=== PATIENT | male | born 1950 | race Caucasian/White ===

== ENCOUNTER 2016-11-01 13:11 | Emergency (ER) | payer MEDICARE ==
--- NOTE | 2016-11-01 14:51 | UC ---
Skin Complaint HPI - HPI Summary HPI Summary: PT HAS HAD A SORE SPOT LEFT MID BACK FOR ABOUT 2 WEEKS. FEELS SUPERFICIAL "LIKE ITS ON THE SKIN". WONDERING IF IT'S A "SPIDER BITE". 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 NO FEVER. - History of Current Complaint Chief Complaint: UCSkin Time Seen by Provider: 11/01/16 14:44 Stated Complaint: SPIDER BITE-RED/SWOLLEN Hx Obtained From: Patient Onset/Duration: Gradual Onset, Lasting Weeks, Still Present Timing: Constant Onset Severity: Moderate Current Severity: Moderate Pain Intensity: 8 Pain Scale Used: 0-10 Numeric Location: Discrete - LEFT MID BACK Character: Pain Aggravating: Touch Alleviating: Nothing Associated Signs & Symptoms: Positive: Negative - Allergy/Home Medications Allergies/Adverse Reactions: Allergies Allergy/AdvReac Type Severity Reaction Status Date / Time Sulfa Antibiotics Allergy Unknown Unknown Unverified 11/19/12 13:51 Reaction Details Home Medications: Home Medications Melatonin 11/01/16 [History] Review of Systems Constitutional: Negative Skin: Other - TENDER SPOT LEFT BACK Respiratory: Negative Cardiovascular: Negative Gastrointestinal: Negative All Other Systems Reviewed And Are Negative: Yes PMH/Surg Hx/FS Hx/Imm Hx Previously Healthy: Yes Endocrine History Of: Denies: Diabetes, Thyroid Disease Cardiovascular History Of: Denies: Cardiac Disorders, Hypertension Respiratory History Of: Denies: COPD, Asthma GI/ History Of: Denies: Ulcer - Surgical History Surgical History: Yes Surgery Procedure, Year, and Place: Esophageal removed (2004) Right kidney tumor removed. (2007) - Family History Known Family History: Positive: Hypertension - Social History Alcohol Use: Occasionally Substance Use Type: None Smoking Status (MU): Never Smoked Tobacco Physical Exam Triage Information Reviewed: Yes Appearance: Well-Appearing, No Pain Distress, Well-Nourished Vital Signs: Initial Vital Signs Temp 98.8 F 11/01/16 14:21 Pulse 81 11/01/16 14:21 Resp 18 11/01/16 14:21 BP 163/88 11/01/16 14:21 Pulse Ox 99 11/01/16 14:21 Vital Signs Reviewed: Yes Eyes: Positive: Conjunctiva Clear ENT: Positive: Hearing grossly normal Neck: Positive: Supple Respiratory: Positive: No respiratory distress, No accessory muscle use Cardiovascular: Positive: Pulses Normal Abdomen Description: Positive: Soft Musculoskeletal: Positive: No Edema Neurological: Positive: Alert Skin: Positive: Other - MULTIPLE EPIDERMAL INCLUSION CYSTS AND COMEDOMES SCATTERED OVER BACK. NO SURROUNDING ERYTHEMA OR DRAINAGE. COMEDOME LEFT MID BACK AT SITE OF DISCOMFORT MILDLY TENDER Course/Dx - Course Course Of Treatment: NO SIGN OF INFECTION. CHEESY MATERIAL EXPRESSED FROM SEVERAL PLUGGED GLANDS. PT ADVISED TO GO HOME AND SHOWER AND KEEP CLEAN AND DRY ABLE. FOLLOW-UP IF PAIN PERSISTS. - Diagnoses Provider Diagnoses: EPIDERMAL INCLUSION CYSTS Discharge - Discharge Plan Condition: Stable Disposition: HOME Patient Education Materials: Epidermal Inclusion Cysts (ED) Referrals: Adrian Domingo MD [Primary Care Provider] - 1 Week (YOUR BP IS ELEVATED TODAY. FOLLOW-UP WITH DR. DOMINGO IN THE NEXT WEEK OR SO TO RE-EVALUATE.) Additional Instructions: NO SIGN OF INFECTION ON EXAM. KEEP CLEAN AND DRY ABLE. KEEP YOUR DERM FOLLOW- UP PLANNED.
[2016-11-01 15:27] VITALS: BP 160/99
== END 2016-11-01 15:25 | disposition home or self-care (01) ==
LOC: UCEAST 13:11
DX: L72.8 Other follicular cysts of the skin and subcutaneous tissue (principal); Z88.2 Allergy status to sulfonamides
CPT/HCPCS: 99211; G0463

== ENCOUNTER 2017-03-26 10:16 | Day surgery (SDC) | payer MEDICARE ==
[~2017-03-26 10:16] MED LIST: Buffered Lidocaine 0.9% SYRIN* 5 ML/SYR SYRINGE INTRADERM ONE; Midazolam* 1 MG/ML 2 ML VIAL (2 MG) ONE; fentaNYL* 50 MCG/ML 2 ML VIAL (100 MCG VIAL) ONE
[2017-03-26] MEDS ORDERED: Buffered Lidocaine 0.9% SYRIN* 5 ML/SYR SYRINGE ONE (10:27)
[2017-03-26] MEDS ORDERED: Methylene Blue 0.5 %* 50 MG/10 ML AMP IV ONE (11:39)
[2017-03-26] MEDS ORDERED: Lidocaine 1% MPF wEPI 200,000* 30 ML SDV ONE (11:53)
[2017-03-26] MEDS ORDERED: Dexamethasone IV* 4 MG/ML 1 ML (4 MG) ONE (11:59)
[2017-03-26] MEDS ORDERED: Propofol* 10 MG/ML 20 ML BTL IV PUSH ONE (11:59)
[2017-03-26] MEDS ORDERED: Ondansetron INJ* 2 MG/ML VIAL ONE (11:59)
[2017-03-26] MEDS ORDERED: Lidocaine 2% PF * 5 ML VIAL ONE (11:59)
[2017-03-26] MEDS ORDERED: fentaNYL* 50 MCG/ML 2 ML VIAL (100 MCG VIAL) ONE (12:00)
[2017-03-26] MEDS ORDERED: oxyCODONE/Acetamin 5/325 MG* TAB PO PRN (12:18)
[2017-03-26] MEDS ORDERED: Acetaminophen TAB* 325 MG ONE (13:16)
[2017-03-26] MEDS ORDERED: Bacitracin OINTMENT* 1 TUBE ONE (13:28)
[2017-03-26 13:42] VITALS: BP 158/94
--- NOTE | 2017-03-26 21:58 | OP ---
DATE OF OPERATION: 03/26/17 - [facility] DATE OF : 50 SURGEON: Solo Willis MD ANESTHESIOLOGIST: Sobeida Yun MD ANESTHESIA: General PRE-OP DIAGNOSIS: Lymphoma, skin post neoplasm uncertain. POST-OP DIAGNOSIS: Lymphoma, skin post neoplasm uncertain. OPERATION PERFORMED: Excision of forehead skin lesion with rotational advancement flap. BRIEF HISTORY: This 66-year-old gentleman is noticing a slowly enlarging forehead mass. Previous biopsies were highly suspicious for lymphoma. DESCRIPTION PROCEDURE: The patient was taken to the operating room, general anesthesia was given, the patient intubated with LMA. Margins of the resection were identified and subsequently a VY advancement flap on both sides was fashioned. Subsequently, advancement flaps laterally as well in the crease of the forehead, total about 15 sq. cm. Then, elliptical excision was carried out and subsequently the VY advancement was carried out inferiorly and superiorly and then subsequently laterally. Once this was done, the wound was closed with multiple sutures including Vicryl and Prolene. Once the defect was closed, the patient was awakened and sent to recovery room in stable condition. The instruments and sponge counts were correct. Blood loss was minimal. [id number]/[facility] #: [id number] [facility]
== END 2017-03-26 13:45 | disposition home or self-care (01) ==
LOC: OR 10:16
PROVIDERS: ATTEND Otolaryngology
DX: D23.39 Other benign neoplasm of skin of other parts of face (principal); Z88.2 Allergy status to sulfonamides; Z79.01 Long term (current) use of anticoagulants; M95.0 Acquired deformity of nose; Z86.711 Personal history of pulmonary embolism; Z85.01 Personal history of malignant neoplasm of esophagus
CPT/HCPCS: 88184; 88185; 88188; 88305; 88341; 88342; A9270-GY; J1100; J2001; J2250; J2405; J2704; J3010

== ENCOUNTER 2017-12-09 10:28 | Emergency (ER) | payer MEDICARE ==
[2017-12-09 10:56] VITALS: BP 121/76
--- NOTE | 2017-12-09 10:59 | UC ---
Skin Complaint HPI - HPI Summary HPI Summary: 67 yo male presents with abrasion to left foot. He tells me that last night he stepped on a patio chair that had rails - slipped and some skin scraped off the bottom of his foot. He is worried that something is broken as it is painful to walk since it happened. Denies numbness or tingling. - History of Current Complaint Chief Complaint: UCLowerExtremity Time Seen by Provider: 12/09/17 10:58 Stated Complaint: FOOT INJURY Hx Obtained From: Patient Onset/Duration: Sudden Onset Skin Exposure Onset/Duration: Days Ago Timing: Constant Onset Severity: Moderate Current Severity: Moderate Pain Intensity: 5 Pain Scale Used: 0-10 Numeric - Allergy/Home Medications Allergies/Adverse Reactions: Allergies Allergy/AdvReac Type Severity Reaction Status Date / Time Sulfa (Sulfonamide Allergy Swelling Verified 12/09/17 10:47 Antibiotics) Of Face,Lips,& Throat Home Medications: Home Medications Rivaroxaban TAB(*) [Xarelto 15 mg(*)] 15 mg PO DAILY 12/09/17 [History Confirmed 12/09/17] Review of Systems Constitutional: Negative Skin: Other - Abrasion left plantar foot Respiratory: Negative Cardiovascular: Negative Neurovascular: Negative Musculoskeletal: Other: - Left foot pain Neurological: Negative Psychological: Negative All Other Systems Reviewed And Are Negative: Yes PMH/Surg Hx/FS Hx/Imm Hx Cardiovascular History: Cardiac Disease - Surgical History Surgical History: Yes Surgery Procedure, Year, and Place: Esophageal removed (2004) Right kidney tumor removed. (2007) - Family History Known Family History: Positive: Hypertension - Social History Occupation: Retired Lives: With Family Alcohol Use: Daily Alcohol Amount: 2-3 beers/day Substance Use Type: None Substance Use Comment - Amount & Last Used: 3 months ago marijuana Smoking Status (MU): Never Smoked Tobacco Have You Smoked in the Last Year: No Physical Exam - Summary Physical Exam Summary: GENERAL: NAD. WDWN. No pain distress. SKIN: Plantar aspect of left foot: 5.0cm area of abrasion at the arch with some sloughing superficial skin. Mildly TTP. No drainage, bleeding, or discharge. NECK: Supple. Nontender. No lymphadenopathy. CHEST: No accessory muscle use. Breathing comfortably and in no distress. CV: RRR. Without m/r/g. Pulses intact PT and DP. Brisk cap refill. MSK: Left foot: FROM and Strength 5/5. No edema or obvious bony deformities. NEURO: Alert. Sensations intact and symmetric B/L LEs PSYCH: Age appropriate behavior. Triage Information Reviewed: Yes Vital Signs: Initial Vital Signs Temp 98.2 F 12/09/17 10:49 Pulse 71 12/09/17 10:49 Resp 16 12/09/17 10:49 BP 121/76 12/09/17 10:49 Pulse Ox 99 12/09/17 10:49 Course/Dx - Course Course Of Treatment: XR: IMPRESSION: Degenerative changes of the first metatarsophalangeal joint without fracture. Left foot contusion and abrasion. Dressed with gauze and advised to change dressing daily. Ambulate as tolerated. Apply ice. Tylenol for pain prn. - Diagnoses Provider Diagnoses: Left foot contusion. Left foot abrasion Discharge - Sign-Out/Discharge Documenting (check all that apply): Discharge/Admit/Transfer - Discharge Plan Condition: Stable Disposition: HOME Patient Education Materials: Abrasion (ED) Referrals: Adrian Carbajal MD [Primary Care Provider] - Additional Instructions: If you develop a fever, shortness of breath, chest pain, new or worsening symptoms - please call your PCP or go to the ED. - Billing Disposition and Condition Condition: STABLE Disposition: HOME
--- NOTE | 2017-12-09 11:38 | RAD ---
Indication: Left foot pain. 3 views of left foot demonstrates degenerative changes of the first metatarsal phalangeal joint. No fracture is noted. IMPRESSION: Degenerative changes of the first metatarsophalangeal joint without fracture.
== END 2017-12-09 12:05 | disposition home or self-care (01) ==
LOC: UCEAST 10:28
DX: S90.32XA Contusion of left foot, initial encounter (principal); S90.812A Abrasion, left foot, initial encounter; W22.8XXA Striking against or struck by other objects, initial encounter; Y93.9 Activity, unspecified; Y92.9 Unspecified place or not applicable; I51.9 Heart disease, unspecified; Z88.2 Allergy status to sulfonamides
CPT/HCPCS: 99211; G0463

== ENCOUNTER 2018-10-17 12:13 | Inpatient (IN) | payer MEDICARE ==
[2018-10-17] MEDS ORDERED: NS 0.9% 1000 ML** 1,000 ML IV ONE (12:17)
[2018-10-17 12:50] LABS: ABS Basophils 0.1 10^3/ul (0-0.2); ABS Eosinophils 0 10^3/ul (0-0.6); ABS Lymphocytes 1.2 10^3/ul (1.0-4.8); ABS Monocytes 0.8 10^3/ul (0-0.8); ABS Neutrophils 4.2 10^3/ul (1.5-7.7); ABS Nucleated RBC 0 10^3/ul; Eosinophil % 0.5 %; Hematocrit 43 % (36-46); Hemoglobin 14.1 g/dL (14.0-18.0); Lymphocyte % 18.8 %; Mean Corpuscular HGB Conc 33 g/dL (31-36); Mean Corpuscular Hemoglobin 27 pg (27-31); Mean Corpuscular Volume 84 fL (80-94); Mean Platelet Volume 6.8 fL (7.4-10.4); Nucleated Red Blood Cells % 0.1; Platelet Count 362 10^3/uL (150-450); Red Blood Count 5.16 10^6 /uL (4.18-5.48); Red Cell Distribution Width 17 % (10.5-15); White Blood Count 6.4 10^3/uL (3.5-10.8)
[2018-10-17 12:52] LABS: Activated Partial Thrombo Time 27.2 seconds (26.0-36.3); INR 0.89 (0.77-1.02)
[2018-10-17 13:00] LABS: Albumin 3.9 g/dL (3.2-5.2); Albumin/Globulin Ratio 1.1 (1-3); Calcium 9.2 mg/dL (8.6-10.3); EGFR African American 101.5 (>60); EGFR Non-African American 83.9 (>60); Globulin 3.4 g/dL (2-4); HDL Cholesterol 91.6 mg/dL; Potassium 3.9 mmol/L (3.5-5.0); Total Bilirubin 0.8 mg/dL (0.2-1.0); Total Protein 7.3 g/dL (6.4-8.9)
[2018-10-17 13:02] LABS: Troponin I 0.02 ng/mL (<0.04)
[2018-10-17 13:27] LABS: Urine Appearance Clear; Urine Bacteria Absent (Absent); Urine Bilirubin Negative (Negative); Urine Blood 1+ (Negative); Urine Color Straw; Urine Glucose Negative (Negative); Urine Ketones Negative (Negative); Urine Nitrite Negative (Negative); Urine Protein Negative (Negative); Urine Red Blood Cell Absent (Absent); Urine Specific Gravity 1.006 (1.010-1.030); Urine Urobilinogen Negative (Negative); Urine White Blood Cell Trace(0-5/hpf) (Absent)
[2018-10-17] MEDS ORDERED: Iodixanol* (CONTRAST) 320 MG/ML 100 ML SDV IV ONE (13:46)
--- NOTE | 2018-10-17 14:05 | ED ---
Neurological HPI - HPI Summary HPI Summary: The patient is a 68 year old male who is presenting to the [facility] via ambulance with a chief complaint of slurred speech. The patient was reportedly at baseline earlier this morning and states that throughout the day has had 4 episodes of slurred speech. One reported incident of slurred speech was while he was in the car with his and another episode of slurred speech was while the patient was talking to the EMS. The slurred speech episodes have been intermittent and are currently resolved. The patient also states during one episode of slurred speech he became very weak in his right arm and was unable to move it. The pain is rated as 0/10 in severity. Symptoms aggravated by nothing. Symptoms alleviated by nothing. - History of Current Complaint Chief Complaint: EDNeurologicalDeficit Stated Complaint: STROKE LIKE SYMPTOMS PER EMS Time Seen by Provider: 10/17/18 12:16 Hx Obtained From: Patient, EMS Onset/Duration: Sudden Onset Pain Intensity: 0 Pain Scale Used: 0-10 Numeric Associated Signs and Symptoms: Positive: Weakness - right arm, Impaired Speech - Allergy/Home Medications Allergies/Adverse Reactions: Allergies Allergy/AdvReac Type Severity Reaction Status Date / Time Sulfa (Sulfonamide Allergy Swelling Verified 10/17/18 12:49 Antibiotics) Of Face,Lips,& Throat PMH/Surg Hx/FS Hx/Imm Hx Endocrine/Hematology History: Denies: Hx Diabetes, Hx Thyroid Disease Cardiovascular History: Reports: Other 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 kidney Hx Chemotherapy: Yes - Surgical History Surgery Procedure, Year, and Place: Esophageal removed (2004) Right kidney tumor removed, partial nechrectomy (2007), excision of skin lesion (2016) Hx Anesthesia Reactions: No Infectious Disease History: No Infectious Disease History: Denies: Hx Hepatitis, Hx Human Immunodeficiency Virus (HIV), Traveled Outside the [place] in Last 30 Days - Family History Known Family History: Positive: Hypertension, Other - Esophageal Cancer - Social History Lives: With Family Alcohol Use: Occasionally Alcohol Amount: 2-3 beers/day Substance Use Type: Reports: Marijuana Substance Use Comment - Amount & Last Used: 3 months ago marijuana Smoking Status (MU): Never Smoked Tobacco Have You Smoked in the Last Year: No Review of Systems Constitutional: Negative Eyes: Negative ENT: Negative Cardiovascular: Negative Respiratory: Negative Gastrointestinal: Negative Genitourinary: Negative Musculoskeletal: Negative Skin: Negative Positive: Weakness - Right Arm, Slurred Speech Psychological: Normal All Other Systems Reviewed And Are Negative: Yes Physical Exam - Summary Physical Exam Summary: Appearance: The patient is well-nourished in no acute distress and in no acute pain. Skin: The skin is warm and dry and skin color reflects adequate perfusion. HEENT: The head is normocephalic and atraumatic. The pupils are equal and reactive. The conjunctivae are clear and without drainage. Nares are patent and without drainage. Mouth reveals moist mucous membranes and the throat is without erythema and exudate. The external ears are intact. The ear canals are patent and without drainage. The tympanic membranes are intact. Neck: The neck is supple with full range of motion and non-tender. There are no carotid bruits. There is no neck vein distension. Respiratory: Chest is non-tender. Lungs are clear to auscultation and breath sounds are symmetrical and equal. Cardiovascular: Heart is regular rate and rhythm. There is no murmur or rub auscultated. There is no peripheral edema and pulses are symmetrical and equal. Abdomen: The abdomen is soft and non-tender. There are normal bowel sounds heard in all four quadrants and there is no organomegaly palpated. Musculoskeletal: There is no back tenderness noted. Extremities are non-tender with full range of motion. There is good capillary refill. There is no peripheral edema or calf tenderness elicited. Neurological: Patient is alert and oriented to person, place and time. The patient has symmetrical motor strength in all four extremities. Cranial nerves are grossly intact. Deep tendon reflexes are symmetrical and equal in all four extremities. Psychiatric: The patient has an appropriate affect and does not exhibit any anxiety or depression. NIH: CT stroke scale was 1 for slurred speech 1 minor for minor right lower facial weakness Vital Signs On Initial Exam: Initial Vitals Temp Pulse Resp BP Pulse Ox 98.2 F 79 26 185/106 99 10/17/18 12:15 10/17/18 12:15 10/17/18 12:15 10/17/18 12:15 10/17/18 12:15 Diagnostics - Vital Signs Vital Signs Temp Pulse Resp BP Pulse Ox 10/17/18 12:15 98.2 F 79 26 185/106 99 - Laboratory Lab Results: Lab Results 10/17/18 10/17/18 10/17/18 Range/Units 12:17 12:35 12:35 WBC 6.4 (3.5-10.8) 10^3/uL RBC 5.16 (4.18-5.48) 10^6 /uL Hgb 14.1 (14.0-18.0) g/dL Hct 43 (36-46) % MCV 84 (80-94) fL MCH 27 (27-31) pg MCHC 33 (31-36) g/dL RDW 17 H (10.5-15) % Plt Count 362 (150-450) 10^3/uL MPV 6.8 L (7.4-10.4) fL Neut % (Auto) 66.5 % Lymph % (Auto) 18.8 % Wheeler % (Auto) 13.2 % Eos % (Auto) 0.5 % Baso % (Auto) 1.0 % Absolute Neuts (auto) 4.2 (1.5-7.7) 10^3/ul Absolute Lymphs (auto) 1.2 (1.0-4.8) 10^3/ul Absolute Monos (auto) 0.8 (0-0.8) 10^3/ul Absolute Eos (auto) 0 (0-0.6) 10^3/ul Absolute Basos (auto) 0.1 (0-0.2) 10^3/ul Absolute Nucleated RBC 0 10^3/ul Nucleated RBC % 0.1 INR (Anticoag Therapy) 0.89 (0.77-1.02) APTT 27.2 (26.0-36.3) seconds Sodium (135-145) mmol/L Potassium (3.5-5.0) mmol/L Chloride (101-111) mmol/L Carbon Dioxide (22-32) mmol/L Anion Gap (2-11) mmol/L BUN (6-24) mg/dL Creatinine (0.67-1.17) mg/dL Est GFR ( Amer) (>60) Est GFR (Non-Af Amer) (>60) BUN/Creatinine Ratio (8-20) Glucose (70-100) mg/dL Lactic Acid (0.5-2.0) mmol/L Calcium (8.6-10.3) mg/dL Total Bilirubin (0.2-1.0) mg/dL AST (13-39) U/L ALT (7-52) U/L Alkaline Phosphatase (34-104) U/L Troponin I (<0.04) ng/mL Total Protein (6.4-8.9) g/dL Albumin (3.2-5.2) g/dL Globulin (2-4) g/dL Albumin/Globulin Ratio (1-3) Triglycerides mg/dL Cholesterol mg/dL LDL Cholesterol mg/dL HDL Cholesterol mg/dL Urine Color Straw Urine Appearance Clear Urine pH 5.0 (5-9) Ur Specific [place] 1.006 L (1.010-1.030) Urine Protein Negative (Negative) Urine Ketones Negative (Negative) Urine Blood 1+ A (Negative) Urine Nitrate Negative (Negative) Urine Bilirubin Negative (Negative) Urine Urobilinogen Negative (Negative) Ur Leukocyte Esterase Negative (Negative) Urine WBC (Auto) Trace(0-5/hpf) (Absent) Urine RBC (Auto) Absent (Absent) Urine Bacteria Absent (Absent) Urine Glucose Negative (Negative) Blood Type Antibody Screen 10/17/18 10/17/18 10/17/18 Range/Units 12:35 12:35 12:35 WBC (3.5-10.8) 10^3/uL RBC (4.18-5.48) 10^6 /uL Hgb (14.0-18.0) g/dL Hct (36-46) % MCV (80-94) fL MCH (27-31) pg MCHC (31-36) g/dL RDW (10.5-15) % Plt Count (150-450) 10^3/uL MPV (7.4-10.4) fL Neut % (Auto) % Lymph % (Auto) % Wheeler % (Auto) % Eos % (Auto) % Baso % (Auto) % Absolute Neuts (auto) (1.5-7.7) 10^3/ul Absolute Lymphs (auto) (1.0-4.8) 10^3/ul Absolute Monos (auto) (0-0.8) 10^3/ul Absolute Eos (auto) (0-0.6) 10^3/ul Absolute Basos (auto) (0-0.2) 10^3/ul Absolute Nucleated RBC 10^3/ul Nucleated RBC % INR (Anticoag Therapy) (0.77-1.02) APTT (26.0-36.3) seconds Sodium 132 L (135-145) mmol/L Potassium 3.9 (3.5-5.0) mmol/L Chloride 100 L (101-111) mmol/L Carbon Dioxide 23 (22-32) mmol/L Anion Gap 9 (2-11) mmol/L BUN 9 (6-24) mg/dL Creatinine 0.90 (0.67-1.17) mg/dL Est GFR ( Amer) 101.5 (>60) Est GFR (Non-Af Amer) 83.9 (>60) BUN/Creatinine Ratio 10.0 (8-20) Glucose 107 H (70-100) mg/dL Lactic Acid 2.2 H* (0.5-2.0) mmol/L Calcium 9.2 (8.6-10.3) mg/dL Total Bilirubin 0.80 (0.2-1.0) mg/dL AST 29 (13-39) U/L ALT 17 (7-52) U/L Alkaline Phosphatase 84 (34-104) U/L Troponin I 0.02 (<0.04) ng/mL Total Protein 7.3 (6.4-8.9) g/dL Albumin 3.9 (3.2-5.2) g/dL Globulin 3.4 (2-4) g/dL Albumin/Globulin Ratio 1.1 (1-3) Triglycerides 126 mg/dL Cholesterol 168 mg/dL LDL Cholesterol 51 mg/dL HDL Cholesterol 91.6 mg/dL Urine Color Urine Appearance Urine pH (5-9) Ur Specific [place] (1.010-1.030) Urine Protein (Negative) Urine Ketones (Negative) Urine Blood (Negative) Urine Nitrate (Negative) Urine Bilirubin (Negative) Urine Urobilinogen (Negative) Ur Leukocyte Esterase (Negative) Urine WBC (Auto) (Absent) Urine RBC (Auto) (Absent) Urine Bacteria (Absent) Urine Glucose (Negative) Blood Type O Positive Antibody Screen Negative Result Diagrams: 10/17/18 12:35 10/17/18 12:35 Lab Statement: Any lab studies that have been ordered have been reviewed, and results considered in the medical decision making process. - Radiology Chest X-ray Radiology Interpretation Completed By: Radiologist Summary of Radiographic Findings: Chest X-Ray reveals as per radiologist #. No evidence for acute intrathoracic disease. ED Physician has reviewed this radiology report. - CT Brain CT CT Interpretation Completed By: Radiologist Summary of CT Findings: Brain CT reveals as per radiologist #. No evidence for intracranial hemorrhage or CT stigmata of ischemic stroke. #. Mild involutional change. #. Paranasal sinus disease with suggestion of acute RIGHT maxillary sinusitis. ED Physician has reviewed this radiology report. HEAD and NECK CTA CT Interpretation Completed By: Radiologist Summary of CT Findings: HEAD and NECK CTA reveals as per radiologist ,. HEAD ANGIOGRAM IMPRESSION: No large vessel intracranial arterial occlusion or. hemodynamically significant stenosis detected. NECK ANGIOGRAM IMPRESSION: Approximate 50% RIGHT and 15% LEFT internal carotid artery. stenosis. ED Physician has reviewed this radiology report. - EKG 1237 Summary of EKG Findings: Right Bundle Branch Block with sinus rhythm at 75 bpm. EKG was taken at 1237. NIH Scale - NIH Scale Level of Consciousness: Alert/Keenly Responsive Ask Patient the Month and His/Her Age: Both Correct Ask Pt to Open/Close Eyes and Senior Scheduler/Release Non-Paretic Hand: Both Correctly Best Gaze (Only Horizontal Eye Movement): Normal Visual Field Testing: No Visual Loss Facial Paresis-Pt to Smile & Close Eyes or Grimace Symmetry: Minor Paralysis - Minor right lower facial weakness Motor Function - Right Arm: No Drift-Holds 10 Seconds Motor Function - Left Arm: No Drift-Holds 10 Seconds Motor Function - Right Leg: No Drift-Holds 10 Seconds Motor Function - Left Leg: No Drift-Holds 10 Seconds Limb Ataxia-Must be out of Proportion to Weakness Present: Absent Sensory (Use Pinprick to Test Arms/Legs/Trunk/Face): Normal Best Language (Describe Picture, Name Items): No Aphasia Dysarthria (Read Several Words): Slurs Some Words Extinction and Inattention: No Abnormality Total Score: 2 Course/Dx - Course Course Of Treatment: Discussed with Neurologist bpm solution architect at [facility]. Patient is currently not a thrombolytic candidate and recommended CTA. Assessment/Plan: Mr. Chambers reports that he was fine when he got up this morning. But he has had 3-4 episodes of slurred speech and possibly facial droop. On the third episode he was unable to move his right arm except by using his left arm. His decided to drive him to the hospital but when his arm became involved stopped at the nearest fire department. He was mostly resolved by the time they got there. Ambulance was called and he redeveloped slurred speech on the way here. Luis Manuel gruber was called prehospital based on the EMS report. On arrival to the department he had some slurred speech and slight right-sided facial droop which she was able to overcome. The rest of his NIH stroke scale was negative. I spoke with neurology in [place]. 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 He is not a candidate for thrombolysis due to the stuttering affect, the minor symptomatology and the fact that he possibly took Xarelto within the last 48 hours. He is not very compliant with the Xarelto. A CTA was performed looking for a larger clot and was negative. The hospitalist service was contacted for admission and Dr. Moraes was consulted. - Diagnoses Provider Diagnoses: CVA (cerebral vascular accident) Discharge - Sign-Out/Discharge Documenting (check all that apply): Patient Departure - ADMITTED TO THE [facility] [place] - Discharge Plan Condition: Stable Disposition: ADMITTED TO [facility] - Billing Disposition and Condition Condition: STABLE Disposition: Admitted to [facility] - Attestation Statements Document Initiated by Scribe: Yes Documenting Scribe: Phillip Levine Provider For Whom Scribe is Documenting (Include Credential): Dr. Buddy Liang Scribe Attestation: Carter, Phillip Levine, scribed for Dr. Buddy Liang on 10/17/18 at 1807. Scribe Documentation Reviewed: Yes Provider Attestation: The documentation as recorded by the Phillip guajardo accurately reflects the service I personally performed and the decisions made by me, Dr. Buddy Liang Status of Scribe Document: Viewed
[2018-10-17] MEDS ORDERED: NS 0.9% 1000 ML** 1,000 ML IV SCH (16:30)
[2018-10-17] MEDS: hydrALAZINE IV* 20 MG/ML VIAL IV SLOW PU PRN ×2 (16:41→19:08)
[2018-10-17] MEDS ORDERED: Aspirin 81 mg CHEW TAB* 81 MG TAB.CHEW PO ONE (17:58)
[2018-10-17] MEDS: Rivaroxaban TAB(*) 15 MG PO SCH ×2 (18:24→20:38)
--- NOTE | 2018-10-17 20:02 | HP ---
ADMITTING HISTORY AND PHYSICAL: DATE OF ADMISSION: 10/17/18 CHIEF COMPLAINT: Slurred speech. HISTORY OF PRESENT ILLNESS: The patient is a 68-year-old gentleman, who mentions that he has a history of esophageal and kidney cancer, status post esophagectomy and tumor resection respectively, who mentions that he is currently in remission and had a history of PE about 10 years ago at around the same time that he was diagnosed with kidney cancer and was placed on Xarelto for PE along with DVT filter. He mentions that he was in his usual state of health and other than this he does not have any documented past medical history , until this morning where throughout the day he has had at least 3 to 4 episodes of intermittent slurring of speech/stuttering, which was also mirrored by intermittent waxing and waning strength of his right side both of the upper and lower extremities. When he got home and told his , his convinced him to go to the ED and hence his subsequent evaluation for admission. In the ED, he was found to be hypotensive and was found to have an elevated lactic acid and hence the patient was given a bolus of 1 L normal saline as well as the patient underwent a head CTA per Dr. Liang's conversation with [facility]. The CTA fortunately did not show any significant internal carotid artery stenosis and there is no large-vessel intracranial arterial occlusion that was found. PAST MEDICAL AND SURGICAL HISTORY: Esophageal cancer, diagnosed 12 years ago, status post esophagectomy; kidney tumor resection 10 years ago at [facility], status post resection. He also narrates that 4 months ago upon evaluation for his right leg comminuted fracture, he was told that he has nodules in his lungs. Six to nine months ago, Dr. Carbajal of note supposedly examined the patient and mentioned that he is in remission. FAMILY HISTORY: Esophageal cancer, his father; mother, lung cancer. SOCIAL HISTORY: He mentions that he has had previous history of alcohol abuse, but has cut down to 1 beer or 1 alcoholic beverage drink per day for the last 4 months. He mentions that he occasionally smokes marijuana. He lives with his . He has 1 child, who is an adult, who lives in [place]. Denies any history of IV drug use. 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 REVIEW OF SYSTEMS: Intermittent stuttering/slurred speech as described above along with intermittent waxing and waning course of right upper and lower extremity strength. Other than this, he denied any other symptoms such as headaches, dizziness, fevers, chills, nausea, vomiting, chest pain, shortness of breath, increased coughing or sputum production, abdominal pain, diarrhea, constipation, pain and/or increased frequency on urination, myalgias or arthralgias, throat pain, or new skin lesions. The rest of the 14-point review of systems is otherwise unremarkable. PHYSICAL EXAMINATION GENERAL APPEARANCE: The patient is awake, oriented x3, not in acute distress. VITAL SIGNS: Reveals the most recent vital signs of record with blood pressure of 145/95, 88 beats per minute heart rate, 26 per minute respiratory rate from 18, 96% saturation on room air. HEENT: Normocephalic, atraumatic. PERRLA. Extraocular muscles intact. Negative for icterus. Moist oral mucosa. Negative throat erythema. NECK: Soft, supple with no cervical lymphadenopathy, no JVD. CHEST: Clear to auscultation bilaterally. Good air entry. No wheezes, rales, or rhonchi. HEART: S1, S2 within normal limits. Regular rate and rhythm. No murmurs, rubs , or gallops. ABDOMEN: Soft, nondistended, nontender. Normoactive bowel sounds x4 quadrants. EXTREMITIES: No cyanosis, clubbing, or edema. NEUROLOGIC: CN II through XII are intact. He does have some stuttering and 4/ 5 muscle strength on the right side. He mentions that this is intermittent. PSYCHIATRIC: No active psychosis, depression, suicidal or homicidal ideation. SKIN: Warm to touch. DIAGNOSTIC STUDIES/LAB DATA: Most recent and pertinent laboratories drawn show CBC with a WBC, H and H, and platelet counts that were normal. BUN and creatinine were found to be normal, sodium of 132, potassium is normal. UA does not show any pyuria with a specific gravity of 1.006. EKG shows right bundle branch block, sinus rhythm with 75 beats per minute heart rate. CTA of the head and neck as discussed, shows 50% right and 50% left internal carotid artery stenosis and it does not show any large-vessel intracranial arterial occlusion or hemodynamically significant stenosis. Chest x-ray was otherwise no acute disease. There are no nodules seen or commented by radiologist as per the patient's concern. ASSESSMENT AND PLAN: The patient is a 68-year-old gentleman with history of esophageal and kidney cancer, now thought to be in remission, with history of pulmonary embolism, on Xarelto, being admitted for intermittent stuttering as well as intermittent right-sided weakness. 1. Intermittent stuttering and right-sided weakness, possible transient ischemic attack versus cerebrovascular accident versus vasospasm. At this time , we will place the patient on Xarelto at full dose including its loading dose given the patient mentions he has not taken Xarelto for at least 2 days and given above symptoms, we will fully anticoagulate. An MRI, 2D echo with bubble study in a.m. We will also check fasting lipid levels in the a.m. I have also consulted Dr. Friedman and we will await any further input from Neurology. 2. Hypertension. We will place the patient on p.r.n. hydralazine for MAP above 100 given the patient's hypertension on presentation; however, it is interesting that the patient did not receive or seemed to have not received any antihypertensives in the ER and has gradually improved and we will continue watchful waiting at this time. We will place the patient on oral metoprolol with appropriate holding orders. 3. Increased lactic acid, likely due to poor perfusion especially given neurologic symptoms as discussed above. We will continue to hydrate the patient with 1 more L of fluids at a slow rate of 75 cc an hour. 4. Question of lung nodules. I do not see an official report for any nodules or masses nor do I see them in the chest x-ray when I looked at it myself. Given he was concerned about this, given he was told that a chest x-ray done prior to his right compound fracture repair of his tibia and fibula, that he had them and we will defer to the patient's PCP. 5. History of carcinoma. We will defer on followup with Dr. Carbajal given no nodules were seen on chest x-ray that the patient was concerned about. 6. DVT prophylaxis: The patient will be placed on full-dose Xarelto as discussed above. 7. Disposition: For PT eval. [id number]/[facility] #: [id number] MTDD
[2018-10-17] MEDS: Metoprolol Tartrate TAB* 25 MG PO SCH (20:38)
[2018-10-17] MEDS ORDERED: Rivaroxaban TAB(*) 15 MG PO SCH (21:00)
--- NOTE | 2018-10-17 23:17 | CONS ---
CC: Dr. 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 Mr. Chambers was at a meeting this morning for in [place], when he got into his car to come home, he realized his right arm and leg did not work. This got better. He got to [employer] and some of his symptoms returned, eventually got better. He got home and his drove him toward the hospital. He started developing some numbness on the right side on the way in and slurred speech and they called an ambulance to take him in. In the emergency room, he has continued to fluctuate in his symptoms. His NIH stroke scale was recorded as 1 in the emergency room. His CT of the brain showed no evidence of hemorrhage. There was a question of right maxillary sinusitis. His CTA of the brain and neck showed no large vessel occlusion. He did have stenosis on the right internal carotid at 50% and left at 15%. He had a chest x-ray that showed no active disease. ER physician consulted [facility], who felt he was not a candidate for tPA and subsequently I was called to consult, at which time we were outside the tPA window. On the phone, I asked the ER physician to keep him as flat as possible to allow for perfusion given fluctuating history that was noted. On my evaluation in the emergency room, he was noted to have an NIH stroke scale of 2 with mild facial palsy and mild changes in speech with dysarthria. Although no drift was noted, there was weakness on examination of individual muscles. PAST MEDICAL AND SURGICAL HISTORY: Includes pulmonary embolism in 2005 around the prabhakar-surgical period of time for esophageal cancer. He was found to have tumor in his right kidney on surveillance for esophageal cancer and had a partial right nephrectomy in 2007. He has a history of skin lesion resection in 2016. He does have cataracts, but has never had surgery. Other surgical history includes a tibiofibular fracture in April 2018 for which he had hardware placed at [facility]. He has been able to put weight on his leg for the just last month. MEDICATIONS: His medications as an outpatient include Xarelto, which he is supposed to take 15 mg a day but has not taken any for the last couple of days. He indicates he has been using it less in the last 3 months. He does use Tylenol PM at night to sleep and sometimes Benadryl. ALLERGIES: Include SULFA drugs which cause his neck to swell. FAMILY HISTORY: Includes a father who at age 72, he had esophageal cancer ; mother who at 77, she had lung cancer; a son, 29, who lives in [facility] and is alive and well. SOCIAL HISTORY: Mr. Chambers lives with his . He is down to drinking one beer a day. He is involved in Alcoholics Anonymous. He occasionally smokes marijuana. He denies any cigarette use or any exposure to illicit drugs such as cocaine or heroin. PHYSICAL EXAMINATION: Most recent vital signs include temperature of 97.3 degrees Fahrenheit, pulse is 100, respiratory rate 20, saturation 98% and blood pressure 189/81. He had a regular cardiac rhythm. His lungs were clear to auscultation. There was no peripheral edema. His peripheral pulses were intact. No rash was noted. He was awake, alert, oriented to time, place and person. He had full extraocular movements with no nystagmus, full madera to confrontation. His facial expression was asymmetric with a right central 7 that improved with put lying him flat. He did have a dysarthria, which also improved with lying flat. His facial sensation was equal. Palate was upgoing. Tongue was midline. Sternocleidomastoid and trapezius were 5/5 in strength. There was no pronator drift. He gave good strength in his left arm and leg. In his right arm, there was slight weakness noted in the biceps, 5-5 in the triceps, 4+/5 in the intrinsic hand muscles 4-/5. In the right lower extremity , there was slight gives in hip flexion and otherwise strong. He was able to do [id number] and heel-to- copeland movements without difficulty. There is no asymmetry to pinprick, cold or light touch and no loss to double simultaneous stimulation. He was able to identify things and name things without difficulty and his language function was normal. Vibration sensation was lost at the large toes, was reduced at the ankles. Reflexes were 2+ in the upper and lower extremities with toes of flexor response. Gait was not tested at this time due to clinical status with position related perfusion. DIAGNOSTIC STUDIES/LAB DATA: Data includes CT of the brain, which showed no hemorrhage. There was a question of right maxillary sinusitis, the film was reviewed directly. CTA of brain and neck showed no large vessel occlusion. There was 50% right internal carotid artery occlusion and then 15% left internal carotid artery stenosis. Chest x-ray showed no acute disease. Laboratory tests include sodium of 132, potassium was 3.9, chloride was 100. He had normal BUN and creatinine, normal GFR. Glucose was 107. Hemoglobin A1c was 5.7. Lactate was 2.2. TSH was 0.75. Lipid profile showed total cholesterol 168, LDL was 51, HDL was 91.6, triglycerides 126. Troponin was 0.02. 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 He is clearly position- dependent in his symptoms, and I have asked him to maintain flat posture as possible to ensure perfusion. He was able to get down to about 10 degrees, and then wanted to go completely flat after he realized he was getting better. I would liberalize his blood pressure and not treat unless he is persistently above 200 systolic, 110 diastolic. He is being placed back on his Xarelto tonight and we will admit him to telemetry. Given the distribution of his symptoms and findings, this certainly could be a small vessel etiology and question will be whether to add additional antiplatelet agent to his Xarelto. We will give him a dose of Aspirin tonight. His lipid profile thus far looks quite good. MRI will help with localization ; however, we may need to make sure that the MRI will be compatible with orthopedic surgery that was done in April 2018. I would check echocardiogram with bubble study, and he is to be admitted to telemetry. Thus far, he tells me that there has been no recurrence of cancer to suggest that neoplasm could be cause for hypercoagulable state. Improvement has been noted with position-dependent and at this point, he is aware that prognosis is tenuous as he has had fluctuating symptoms. Given lack of large vessel occlusion, there is no opportunity to send him to [facility] for clot retrieval. TIME SPENT: Over an hour and a half was spent in care in the emergency room and case was discussed with ER physician as well as hospitalist. Of note, repeat examination after 8 PM revealed resolution of arm weakness, with continued mild right facial palsy and dysarthria (still improved from ER). [id number]/[facility] #: [id number] MTDD
[2018-10-18 06:12] LABS: ABS Basophils 0 10^3/ul (0-0.2); ABS Eosinophils 0 10^3/ul (0-0.6); ABS Lymphocytes 1.4 10^3/ul (1.0-4.8); ABS Neutrophils 6.2 10^3/ul (1.5-7.7); ABS Nucleated RBC 0 10^3/ul; Eosinophil % 0.5 %; Hematocrit 44 % (36-46); Hemoglobin 14.1 g/dL (14.0-18.0); Lymphocyte % 15.9 %; Mean Corpuscular HGB Conc 32 g/dL (31-36); Mean Corpuscular Hemoglobin 27 pg (27-31); Mean Corpuscular Volume 84 fL (80-94); Mean Platelet Volume 7.1 fL (7.4-10.4); Nucleated Red Blood Cells % 0.1; Platelet Count 366 10^3/uL (150-450); Red Blood Count 5.19 10^6 /uL (4.18-5.48); Red Cell Distribution Width 17 % (10.5-15); White Blood Count 8.7 10^3/uL (3.5-10.8)
[2018-10-18 06:30] LABS: Albumin 3.5 g/dL (3.2-5.2); Albumin/Globulin Ratio 1.1 (1-3); BUN/Creatinine Ratio 8.9 (8-20); Calcium 9.2 mg/dL (8.6-10.3); EGFR Non-African American 97.5 (>60); Globulin 3.1 g/dL (2-4); HDL Cholesterol 89.4 mg/dL; Magnesium 1.6 mg/dL (1.9-2.7); Phosphorus 2.6 mg/dL (2.5-5.0); Potassium 3.9 mmol/L (3.5-5.0); Total Bilirubin 1.1 mg/dL (0.2-1.0); Total Protein 6.6 g/dL (6.4-8.9)
[2018-10-18] MEDS: Metoprolol Tartrate TAB* 25 MG PO SCH (08:53)
[2018-10-18] MEDS: Rivaroxaban TAB(*) 15 MG PO SCH (08:53)
[2018-10-18] MEDS ORDERED: NS 0.9% 100 ML* 1,000 ML IV ONE (10:06)
[2018-10-18] MEDS: Pantoprazole TAB * 40 MG TAB PO SCH (10:45)
--- NOTE | 2018-10-18 10:51 | PN ---
Progress Note - Progress Note Date of Service: 10/18/18 Note: HPI: Had anxiety to go to sleep last night. Better now. Feels voice is better. No new symptoms: numbness, weakness, change in vision. Examination: Vital Signs 10/17/18 10/17/18 10/17/18 12:15 12:30 12:36 Temperature 98.2 F Pulse Rate 79 81 80 Respiratory 26 19 27 Rate Blood Pressure 185/106 183/98 (mmHg) O2 Sat by Pulse 99 98 99 Oximetry 10/17/18 10/17/18 10/17/18 12:46 13:00 13:01 Temperature Pulse Rate 79 77 81 Respiratory 16 17 20 Rate Blood Pressure 185/99 179/90 (mmHg) O2 Sat by Pulse 98 99 98 Oximetry 10/17/18 10/17/18 10/17/18 13:16 13:25 13:31 Temperature Pulse Rate 79 81 84 Respiratory 20 19 20 Rate Blood Pressure 185/95 189/95 178/93 (mmHg) O2 Sat by Pulse 99 97 98 Oximetry 10/17/18 10/17/18 10/17/18 13:59 14:01 14:02 Temperature Pulse Rate 79 81 82 Respiratory 18 19 17 Rate Blood Pressure 186/93 174/91 (mmHg) O2 Sat by Pulse 99 98 98 Oximetry 10/17/18 10/17/18 10/17/18 14:16 14:31 14:46 Temperature Pulse Rate 82 99 83 Respiratory 21 28 16 Rate Blood Pressure 195/97 211/128 178/98 (mmHg) O2 Sat by Pulse 99 98 97 Oximetry 10/17/18 10/17/18 10/17/18 15:00 15:01 15:16 Temperature Pulse Rate 82 78 84 Respiratory 20 17 20 Rate Blood Pressure 188/98 176/92 (mmHg) O2 Sat by Pulse 99 98 96 Oximetry 10/17/18 10/17/18 10/17/18 15:31 15:46 16:00 Temperature Pulse Rate 89 91 95 Respiratory 19 15 25 Rate Blood Pressure 167/99 158/92 (mmHg) O2 Sat by Pulse 97 96 97 Oximetry 10/17/18 10/17/18 10/17/18 16:02 16:16 16:31 Temperature Pulse Rate 93 95 87 Respiratory 19 16 19 Rate Blood Pressure 183/109 151/118 179/93 (mmHg) O2 Sat by Pulse 98 98 97 Oximetry 10/17/18 10/17/18 10/17/18 16:42 16:46 17:00 Temperature Pulse Rate 90 94 101 Respiratory 22 17 26 Rate Blood Pressure 161/98 185/76 (mmHg) O2 Sat by Pulse 97 99 99 Oximetry 10/17/18 10/17/18 10/17/18 17:02 17:26 17:35 Temperature 98.7 F 97.3 F Pulse Rate 101 94 100 Respiratory 18 21 20 Rate Blood Pressure 169/94 161/98 189/81 (mmHg) O2 Sat by Pulse 99 97 98 Oximetry 10/17/18 10/17/18 10/17/18 19:39 20:51 23:53 Temperature 97.3 F 98.2 F Pulse Rate 112 91 Respiratory 16 16 16 Rate Blood Pressure 148/67 167/81 (mmHg) O2 Sat by Pulse 99 99 100 Oximetry 10/18/18 10/18/18 10/18/18 00:50 03:30 07:20 Temperature 97.7 F 97.9 F Pulse Rate 79 87 Respiratory 16 18 Rate Blood Pressure 161/83 155/88 (mmHg) O2 Sat by Pulse 99 100 100 Oximetry There was regular cardiac rhythm, no murmur, no carotid bruit, lungs clear to ausculation. He was awake and alert, oriented to place and time. There was a right central VIIth and dysarthria. Extraocular movements were full, with no nystagmus. Garcia were full to confrontation. Facial sensation was symmetric. Palate was upgoing, tongue was midline. Sternocleidomastoid and trapezius were 5/5 in strength. There was no pronator drift, however slight weakness noted with moving right hand to cover eye. Left arm and leg were strong. Right deltoid, biceps were strong. Triceps was 5-/5, Hand muscles 5-/5. Right Hip flexion had slight give. The remainder of leg muscles were strong. There was slight dysmetria with right arm and leg consistent with weakness. Sensation was symmetric to light touch with no neglect. Patient remained in flat position given clinical status. Data: remainder of lab tests reviewed from last 24 hours Laboratory Tests 10/17/18 10/17/18 10/18/18 12:35 12:35 05:41 Hemoglobin A1c 5.7 H Magnesium 1.6 L Total Bilirubin 1.10 H TSH 0.75 Laboratory Tests 10/18/18 05:41 Triglycerides 62 Cholesterol 164 LDL Cholesterol 62 HDL Cholesterol 89.4 CTA brain: Patient Name: ELIZABETH SOLORZANO Medical Record#: [id number] Ordering Physician: Buddy Liang MD Acct.#: [id number] : 1950 Age: 68 Sex: M Location: EMERGENCY DEPARTMENT Exam Date: 10/17/18 1325 ADM Status: REG ER Order Information: CTA HEAD/NECK Accession Number: [id number] CPT: 38307 INDICATION: RIGHT side arm and leg weakness and numbness. Slurred speech. COMPARISON: Noncontrast head CT of the same date. TECHNIQUE: #. CT from the aortic arch to the vertex of the head with 80 mL Visipaque 320 IV contrast. Arterial phase of enhancement. Multiplanar reformation including maximum intensity projection. Stenosis estimations based on denominator of distal arterial diameter. NECK ANGIOGRAM REPORT: Postsurgical change of esophagectomy and gastric pull-up. Negative for lymphadenopathy based on short axis size criteria within the field- of-view. Variant Combined origin of the LEFT common carotid and RIGHT brachiocephalic arteries from the aortic arch. Negative for ostial stenosis. Mild calcific plaque at the carotid bifurcation with resulting approximate 50% stenosis at the ostium of the RIGHT internal carotid artery. Minimal calcific plaque at the ostium of the LEFT internal carotid artery with resulting approximate 15% stenosis. Tortuous LEFT internal carotid artery. Patent grossly codominant vertebral arteries with both vertebral arteries contributing to the basilar artery. NECK ANGIOGRAM IMPRESSION: Approximate 50% RIGHT and 15% LEFT internal carotid artery stenosis. HEAD ANGIOGRAM REPORT: Unremarkable intracranial internal carotid arteries as well as the M1 and M2 segments of the middle cerebral arteries and the A1 and A2 segments of the anterior cerebral arteries. Patent anterior communicating artery. Unremarkable basilar artery and cerebellar artery origins. Patent posterior cerebral arteries are supplied primarily by the posterior circulation with normal variant hypoplastic posterior communicating arteries. No intracranial aneurysms or vascular malformations evident. Patent dominant dural venous sinuses. Paranasal sinus disease as described in the noncontrast head CT of the same date. HEAD ANGIOGRAM IMPRESSION: No large vessel intracranial arterial occlusion or hemodynamically significant stenosis detected. CPT II: CPT II Codes: 3100F <Electronically signed by Rick Lozoya MD in OV> 10/17/18 1432 IMPRESSION: Acute ischemic stroke in the setting of history of neoplasms (esophageal and kidney), history of PE on Xarelto, now with fluctuating right sided weakness, improved since yesterday in ER. Needs to remain flat in bed for at least 24 hours, longer with fluctuation. Do not treat blood pressure unless >220 systolic, > 120 diastolic. Blood pressure medications stopped. Will provide normal saline at 100ml/ hour. He is back on Xarelto, and received 2 doses yesterday. Will go back to daily dosing in the setting of stroke. Monitoring for Atrial fibrillation. Echo pending. Will start ASA 81mg a day and statin in the setting of symptoms most suggestive of a small vessel stroke. MRI to clarify. Confirmed with radiologist that timing of orthopedic surgery in April 2018 will not be a problem. GI prophylaxis started. DVT prophylaxis: on Xarelto. Needs PT/OT/speech therapy. Tuba is essential for him, and may be critical to his rehab.
[2018-10-18] MEDS ORDERED: Magnesium Sulf 4 GM/100 ML IV* 4,000 MG/100 ML BAG IVPB ONE (11:00)
[2018-10-18] MEDS ORDERED: Aspirin TAB* 325 MG PO SCH (11:00)
[2018-10-18] MEDS: Aspirin 81 mg CHEW TAB* 81 MG TAB.CHEW PO SCH (11:10)
--- NOTE | 2018-10-18 14:51 | PN ---
Subjective Date of Service: 10/18/18 Interval History: Pt seen and examined. Meds and labs reviewed. CC: Stutterring has improved but still with lingering slurring of words. ROS: Denied CHRIS/dizziness, F/C, N/V, CP, SOB, increased cough, sputum production , abd pain, diarrhea, constipation, dysuria, myalgias, arthralgias, throat pain , and new skin lesions. The rest of the 14 point ROS are unremarkable. PHYSICAL EXAM: GEN APPEARANCE: Awake, not in acute distress HEENT: NC/AT, PERRLA, moist oral mucosa, (-) throat erythema NECK: Soft, supple, (-) cervical LAD, (-)JVD HEART: S1S2 WNL, RRR, No MRG CHEST: CTA, BL, GAE, No W/R/R ABD: Soft, ND/NT, NABS 4x Q EXT: No C/C/E SKIN: Warm to touch PSYCH: No active psychosis, hallucinations, depression, SI/HI Objective Active Medications: Aspirin (Aspirin 81 Mg Chew Tab*) 81 mg PO DAILY [facility] Last Admin: 10/18/18 11:10 Dose: 81 mg Atorvastatin Calcium (Lipitor*) 20 mg PO 1700 [facility] Sodium Chloride (Ns 0.9% 100 Ml*) 1,000 mls @ 100 mls/hr IV ONCE ONE Stop: 10/18/18 20:05 Last Admin: 10/18/18 10:38 Dose: 100 mls/hr Pantoprazole Sodium (Protonix Tab*) 40 mg PO DAILY [facility] Last Admin: 10/18/18 10:45 Dose: 40 mg Rivaroxaban (Xarelto(*)) 20 mg PO DAILY [facility] Stop: 11/07/18 17:42 Vital Signs - 8 hr 10/18/18 10/18/18 10/18/18 07:20 08:00 12:30 Temperature 97.9 F Pulse Rate 87 Respiratory 18 18 17 Rate Blood Pressure 155/88 (mmHg) O2 Sat by Pulse 100 Oximetry 10/18/18 13:18 Temperature 97.7 F Pulse Rate 97 Respiratory 21 Rate Blood Pressure 137/73 (mmHg) O2 Sat by Pulse 99 Oximetry Oxygen Devices in Use Now: Nasal Cannula Result Diagrams: 10/18/18 05:41 10/18/18 05:41 Additional Lab and Data: Lab Results 10/17/18 10/17/18 10/17/18 Range/Units 12:17 12:35 12:35 WBC 6.4 (3.5-10.8) 10^3/uL RBC 5.16 (4.18-5.48) 10^6 /uL Hgb 14.1 (14.0-18.0) g/dL Hct 43 (36-46) % MCV 84 (80-94) fL MCH 27 (27-31) pg MCHC 33 (31-36) g/dL RDW 17 H (10.5-15) % Plt Count 362 (150-450) 10^3/uL MPV 6.8 L (7.4-10.4) fL Neut % (Auto) 66.5 % Lymph % (Auto) 18.8 % [place] % (Auto) 13.2 % Eos % (Auto) 0.5 % Baso % (Auto) 1.0 % Absolute Neuts (auto) 4.2 (1.5-7.7) 10^3/ul Absolute Lymphs (auto) 1.2 (1.0-4.8) 10^3/ul Absolute Monos (auto) 0.8 (0-0.8) 10^3/ul Absolute Eos (auto) 0 (0-0.6) 10^3/ul Absolute Basos (auto) 0.1 (0-0.2) 10^3/ul Absolute Nucleated RBC 0 10^3/ul Nucleated RBC % 0.1 INR (Anticoag Therapy) 0.89 (0.77-1.02) APTT 27.2 (26.0-36.3) seconds Sodium (135-145) mmol/L Potassium (3.5-5.0) mmol/L Chloride (101-111) mmol/L Carbon Dioxide (22-32) mmol/L Anion Gap (2-11) mmol/L BUN (6-24) mg/dL Creatinine (0.67-1.17) mg/dL Est GFR ( Amer) (>60) Est GFR (Non-Af Amer) (>60) BUN/Creatinine Ratio (8-20) Glucose (70-100) mg/dL Lactic Acid (0.5-2.0) mmol/L Calcium (8.6-10.3) mg/dL Total Bilirubin (0.2-1.0) mg/dL AST (13-39) U/L ALT (7-52) U/L Alkaline Phosphatase (34-104) U/L Troponin I (<0.04) ng/mL Total Protein (6.4-8.9) g/dL Albumin (3.2-5.2) g/dL Globulin (2-4) g/dL Albumin/Globulin Ratio (1-3) Triglycerides mg/dL Cholesterol mg/dL LDL Cholesterol mg/dL HDL Cholesterol mg/dL Urine Color Straw Urine Appearance Clear Urine pH 5.0 (5-9) Ur Specific [place] 1.006 L (1.010-1.030) Urine Protein Negative (Negative) Urine Ketones Negative (Negative) Urine Blood 1+ A (Negative) Urine Nitrate Negative (Negative) Urine Bilirubin Negative (Negative) Urine Urobilinogen Negative (Negative) Ur Leukocyte Esterase Negative (Negative) Urine WBC (Auto) Trace(0-5/hpf) (Absent) Urine RBC (Auto) Absent (Absent) Urine Bacteria Absent (Absent) Urine Glucose Negative (Negative) Blood Type Antibody Screen 10/17/18 10/17/18 10/17/18 Range/Units 12:35 12:35 12:35 WBC (3.5-10.8) 10^3/uL RBC (4.18-5.48) 10^6 /uL Hgb (14.0-18.0) g/dL Hct (36-46) % MCV (80-94) fL MCH (27-31) pg MCHC (31-36) g/dL RDW (10.5-15) % Plt Count (150-450) 10^3/uL MPV (7.4-10.4) fL Neut % (Auto) % Lymph % (Auto) % King % (Auto) % Eos % (Auto) % Baso % (Auto) % Absolute Neuts (auto) (1.5-7.7) 10^3/ul Absolute Lymphs (auto) (1.0-4.8) 10^3/ul Absolute Monos (auto) (0-0.8) 10^3/ul Absolute Eos (auto) (0-0.6) 10^3/ul Absolute Basos (auto) (0-0.2) 10^3/ul Absolute Nucleated RBC 10^3/ul Nucleated RBC % INR (Anticoag Therapy) (0.77-1.02) APTT (26.0-36.3) seconds Sodium 132 L (135-145) mmol/L Potassium 3.9 (3.5-5.0) mmol/L Chloride 100 L (101-111) mmol/L Carbon Dioxide 23 (22-32) mmol/L Anion Gap 9 (2-11) mmol/L BUN 9 (6-24) mg/dL Creatinine 0.90 (0.67-1.17) mg/dL Est GFR ( Amer) 101.5 (>60) Est GFR (Non-Af Amer) 83.9 (>60) BUN/Creatinine Ratio 10.0 (8-20) Glucose 107 H (70-100) mg/dL Lactic Acid 2.2 H* (0.5-2.0) mmol/L Calcium 9.2 (8.6-10.3) mg/dL Total Bilirubin 0.80 (0.2-1.0) mg/dL AST 29 (13-39) U/L ALT 17 (7-52) U/L Alkaline Phosphatase 84 (34-104) U/L Troponin I 0.02 (<0.04) ng/mL Total Protein 7.3 (6.4-8.9) g/dL Albumin 3.9 (3.2-5.2) g/dL Globulin 3.4 (2-4) g/dL Albumin/Globulin Ratio 1.1 (1-3) Triglycerides 126 mg/dL Cholesterol 168 mg/dL LDL Cholesterol 51 mg/dL HDL Cholesterol 91.6 mg/dL Urine Color Urine Appearance Urine pH (5-9) Ur Specific [place] (1.010-1.030) Urine Protein (Negative) Urine Ketones (Negative) Urine Blood (Negative) Urine Nitrate (Negative) Urine Bilirubin (Negative) Urine Urobilinogen (Negative) Ur Leukocyte Esterase (Negative) Urine WBC (Auto) (Absent) Urine RBC (Auto) (Absent) Urine Bacteria (Absent) Urine Glucose (Negative) Blood Type O Positive Antibody Screen Negative Microbiology and Other Data: Microbiology 10/17/18 12:17 Urine Culture - Final Urine No Growth (<1,000 CFU/mL) Assess/Plan/Problems-Billing Assessment: - Patient Problems (1) Stuttering Current Visit: Yes Status: Acute Code(s): F80.81 - CHILDHOOD ONSET FLUENCY DISORDER SNOMED Code(s): 62287670 Comment: #Stuttering and R. sided weakness -Likely small CVA of posterior circulation -Continue ASA and statins along with Rivaroxaban (2) Hypertension Current Visit: Yes Status: Acute Code(s): I10 - ESSENTIAL (PRIMARY) HYPERTENSION SNOMED Code(s): 45686413 Comment: -No anti-hypertensives at this time at least for the first 48 hours unless SBP>/ =220---d/w Dr. Friedman -Continue watchful waiting -Continue to keep head of bed flat (3) Elevated lactic acid level Current Visit: Yes Status: Acute Code(s): R79.89 - OTHER SPECIFIED ABNORMAL FINDINGS OF BLOOD CHEMISTRY SNOMED Code(s): 2364304 Comment: -likely due to Above -Repeat is WNL (4) DVT prophylaxis Current Visit: Yes Status: Acute Code(s): GPJ1178 - SNOMED Code(s): 323462897 Comment: -On Xarelto Status and Disposition: -For MRI of head in AM
[2018-10-18] MEDS: Atorvastatin* 20 MG TAB PO SCH (17:02)
--- NOTE | 2018-10-18 19:41 | PN ---
Progress Note - Progress Note Date of Service: 10/18/18 Note: Some improvement of his speech if he speaks slowly. No new symptoms. Active Medications Generic Name Dose Route Start Last Admin Trade Name Zacarias IRWIN Reason Stop Dose Admin Aspirin 81 mg 10/18/18 11:00 10/18/18 11:10 Aspirin 81 Mg Chew Tab* PO 81 mg DAILY [facility] Administration Atorvastatin Calcium 20 mg 10/18/18 17:00 10/18/18 17:02 Lipitor* PO 20 mg 1700 [facility] Administration Sodium Chloride 1,000 mls @ 100 mls/hr 10/18/18 10:06 10/18/18 10:38 Ns 0.9% 100 Ml* IV 10/18/18 20:05 100 mls/hr ONCE ONE Administration Pantoprazole Sodium 40 mg 10/18/18 11:00 10/18/18 10:45 Protonix Tab* PO 40 mg DAILY [facility] Administration Rivaroxaban 20 mg 10/19/18 09:00 Xarelto(*) PO 11/07/18 17:42 DAILY [facility] Trazodone HCl 25 mg 10/18/18 21:00 Desyrel Tab* PO 10/20/18 20:59 BEDTIME [facility] Temp Pulse Resp BP Pulse Ox 98.1 F 91 20 170/82 100 10/18/18 15:53 10/18/18 15:53 10/18/18 15:53 10/18/18 16:00 10/18/18 15:53 Repeat examination revealed some improvement of right triceps strength and right heel to copeland movements. Impression: As outlined in progress note earlier today. Second visit made to ensure stability and answer questions, as well as provide further education regarding stroke. Would start to mobilize tomorrow. Patient plans to wait until noon (48 hours after stroke started). If he worsens with sitting, he will get flat. He will need physical therapy, occupational therapy, speech therapy, and may be a candidate for rehabilitation. Will sign out care to Dr. Villanueva in the morning. >45min care today, with >50% of time spent in education and counseling regarding stroke, work up to date, approach to care, prognosis, and further evaluation and treatment.
--- NOTE | 2018-10-18 20:50 | PN ---
Hospitalist Progress Note Date of Service: 10/18/18 Called by Nursing staff to callon call radiology for MRI report- Which showed acute infarct of the left basal ganglia into the left malik radiata measuring 2 x [address] Friedamn notified
[2018-10-18] MEDS ORDERED: traZODone TAB* 50 MG TAB PO SCH (21:00)
[2018-10-19] MEDS ORDERED: traZODone TAB* 50 MG TAB PO ONE (01:00)
[2018-10-19 06:09] LABS: Hematocrit 44 % (36-46); Hemoglobin 14.2 g/dL (14.0-18.0); Mean Corpuscular HGB Conc 33 g/dL (31-36); Mean Corpuscular Hemoglobin 28 pg (27-31); Mean Corpuscular Volume 85 fL (80-94); Platelet Count 380 10^3/uL (150-450); Red Blood Count 5.15 10^6 /uL (4.18-5.48); Red Cell Distribution Width 17 % (10.5-15); White Blood Count 7.6 10^3/uL (3.5-10.8)
[2018-10-19 06:33] LABS: BUN/Creatinine Ratio 8.5 (8-20); Calcium 9.3 mg/dL (8.6-10.3); EGFR African American 113.1 (>60); EGFR Non-African American 93.4 (>60); Magnesium 1.9 mg/dL (1.9-2.7)
[2018-10-19] MEDS: Aspirin 81 mg CHEW TAB* 81 MG TAB.CHEW PO SCH (08:08)
[2018-10-19] MEDS: Pantoprazole TAB * 40 MG TAB PO SCH (08:09)
[2018-10-19] MEDS: Rivaroxaban TAB(*) 20 MG TAB PO SCH (08:09)
[2018-10-19] MEDS ORDERED: Rivaroxaban TAB(*) 15 MG PO SCH (09:00)
--- NOTE | 2018-10-19 13:38 | ECHO ---
Patient: ELIZABETH SOLORZANO [facility] Rec#: [id number] : 1950 Date: 10/19/2018 Age: 68y Height: 188 cm / 74.0 in Weight: 112 kg / 246.8 lbs Sex: M BSA: 2.38 Room#: [facility] Admit Date#: 10/17/2018 Type: Inpatient Referring: Romario Magana Reading: Adria Arteaga MD Nursing Staff Development Coordinator: Paige Henderson RDCS CC: Adrian Carbajal MD Transthoracic Echocardiogram Indication: CVA BP: 144/96 HR: 79 Rhythm: NSR Findings History: Esophageal cancer s/p esophagectomy, kidney tumor resection, PE, DVT filter. Technical Comments: The study quality is fair. Completed at 1240. Left Ventricle: The left ventricular chamber size is normal. Mild to moderate concentric left ventricular hypertrophy is observed. Global left ventricular wall motion and contractility are within normal limits. Left ventricular systolic function is at the lower limits of normal. The estimated ejection fraction is 50-55%. Abnormal left ventricular diastolic function is observed. Abnormal left ventricular diastolic filling is observed, consistent with impaired relaxation. Left Atrium: The left atrium is mildly dilated. Right Ventricle: Moderator Band present. The right ventricle is moderately dilated. The right ventricular global systolic function is normal. Right Atrium: The right atrium is mildly dilated. Interatrial septum appears intact without evidence of shunting. The bubble study is negative. A patent foramen ovale is not demonstrated with color Doppler and agitated contrast. Aortic Valve: The aortic valve is trileaflet. The aortic valve leaflets are moderately thickened. There is evidence of aortic sclerosis without stenosis. There is trace to mild aortic regurgitation. There is no evidence of aortic stenosis. Mitral Valve: There is mitral annular calcification. The mitral valve leaflets are mildly thickened. There is trace to mild mitral regurgitation. There is no evidence of mitral stenosis. Tricuspid Valve: The tricuspid valve leaflets are normal. There is trace to mild tricuspid regurgitation. Unable to estimate the right ventricular systolic pressure. There is no tricuspid stenosis. Pulmonic Valve: The pulmonic valve structure is not well visualized. There is a trace pulmonic regurgitation. There is no pulmonic stenosis. Pericardium: There is no significant pericardial effusion. A pericardial fat pad is visualized. Aorta: There is moderate dilatation of the ascending aorta. The aortic arch is not well visualized. There is moderate dilatation of the aortic root. Pulmonary Artery: The main pulmonary artery is not well visualized. Venous: The inferior vena cava appears normal in size. There is a greater than 50% respiratory change in the inferior vena cava dimension. Contrast: Normal saline was used as contrast for the bubble study. Images 23 and 24. Intravenous contrast was used to help determine presence of intracardiac shunting. Summary: There was not any prior study for comparison. Conclusions Mild to moderate concentric left ventricular hypertrophy is observed. Global left ventricular wall motion and contractility are within normal limits. Left ventricular systolic function is at the lower limits of normal. The estimated ejection fraction is 50-55%. The right ventricular global systolic function is normal. A patent foramen ovale is not demonstrated with color Doppler and agitated contrast. There is trace to mild aortic regurgitation. There is no evidence of aortic stenosis. There is trace to mild mitral regurgitation. There is trace to mild tricuspid regurgitation. Unable to estimate the right ventricular systolic pressure. There is no significant pericardial effusion. Measurements Name Value Normal Range RVIDd (AP) 2D 3.6 cm (0.9 - 2.6) RVDdMajor (2D) 5.6 cm (2.2 - 4.4) RAd ISD 4CH 5.1 cm (3.4 - 4.9) RA (A4C)W 4.3 cm (2.9 - 4.6) IVSd (2D) 1.3 cm (0.6 - 1) LVPWd (2D) 1.3 cm (0.6 - 1) LVIDd (2D) 5 cm (3.6 - 5.4) LVIDs (2D) 3.8 cm - LV FS (2D) 23 % (25 - 45) Aortic Annulus 2.4 cm (1.4 - 2.6) Ao root diameter (2D) 4.4 cm (2.1 - 3.5) Ascending Ao 4.5 cm (2.1 - 3.4) LA dimension (AP) 2D 4 cm (2.3 - 3.8) LAd ISD 4CH 5.5 cm (2.9 - 5.3) LA ISD 4CH W 5.2 cm (2.5 - 4.5) Name Value Normal Range LA ESV BP (A/L) index 37 ml/m2 - Name Value Normal Range MV E-wave Vmax 0.5 m/sec - MV deceleration time 271 msec - MV A-wave Vmax 0.8 m/sec - MV E:A ratio 0.7 ratio - LV septal e' Vmax 0.06 m/sec - LV lateral e' Vmax 0.07 m/sec - LV E:e' septal ratio 8.3 ratio - LV E:e' lateral ratio 7.1 ratio - Name Value Normal Range AV Vmax 1.8 m/sec - AV VTI 33 cm - AV peak gradient 12 mmHg - AV mean gradient 6 mmHg - LVOT diameter 2.2 cm - LVOT Vmax 1.2 m/sec - LVOT VTI 22 cm - LVOT peak gradient 5 mmHg - LVOT mean gradient 3 mmHg - RAJESH Vmax 0.7 m/sec - Name Value Normal Range IVC diameter 1.7 cm - Name Value Normal Range PV Vmax 1.1 m/sec - PV peak gradient 5 mmHg -
[2018-10-19] MEDS ORDERED: Lactated Ringers 1000 ML Bag* 1,000 ML IV SCH (14:00)
[2018-10-19] MEDS: Atorvastatin* 20 MG TAB PO SCH (16:49)
--- NOTE | 2018-10-19 17:07 | PN ---
Subjective Date of Service: 10/19/18 Interval History: Speech slurred but subjectively improving denies CHRIS, vision changes Feels it is still difficult to use right hand to eat which is frustrating Objective Active Medications: Aspirin (Aspirin 81 Mg Chew Tab*) 81 mg PO DAILY [facility] Last Admin: 10/19/18 08:08 Dose: 81 mg Atorvastatin Calcium (Lipitor*) 20 mg PO 1700 [facility] Last Admin: 10/19/18 16:49 Dose: 20 mg Lactated Ringer's (Lactated Ringers 1000 Ml Bag*) 1,000 mls @ 200 mls/hr IV PER RATE [facility] Stop: 10/19/18 18:59 Last Admin: 10/19/18 14:24 Dose: 200 mls/hr Pantoprazole Sodium (Protonix Tab*) 40 mg PO DAILY [facility] Last Admin: 10/19/18 08:09 Dose: 40 mg Rivaroxaban (Xarelto(*)) 20 mg PO DAILY [facility] Stop: 11/07/18 17:42 Last Admin: 10/19/18 08:09 Dose: 20 mg Trazodone HCl (Desyrel Tab*) 50 mg PO BEDTIME [facility] Stop: 10/21/18 20:59 Vital Signs - 8 hr 10/19/18 10/19/18 10/19/18 12:26 13:01 13:08 Temperature 97.9 F Pulse Rate 87 110 Respiratory 20 Rate Blood Pressure 159/82 134/72 137/84 (mmHg) O2 Sat by Pulse 99 Oximetry 10/19/18 10/19/18 13:46 15:58 Temperature Pulse Rate 101 Respiratory Rate Blood Pressure 128/74 154/80 (mmHg) O2 Sat by Pulse Oximetry Oxygen Devices in Use Now: None Appearance: lying flat, NAD Eyes: No Scleral Icterus, PERRLA Ears/Nose/Mouth/Throat: NL Teeth, Lips, Gums, Clear Oropharnyx Neck: NL Appearance and Movements; NL JVP, Trachea Midline Respiratory: Symmetrical Chest Expansion and Respiratory Effort, Clear to Auscultation Cardiovascular: RRR Abdominal: NL Sounds; No Tenderness; No Distention, No Hepatosplenomegaly Lymphatic: No Cervical Adenopathy Skin: No Rash or Ulcers Neurological: Alert and Oriented x 3, - - slightly slurred speech, right upper and lower strength 4/5 left side 5/5 Result Diagrams: 10/19/18 05:48 10/19/18 05:48 Additional Lab and Data: Lab Results 10/17/18 10/17/18 10/17/18 Range/Units 12:17 12:35 12:35 WBC 6.4 (3.5-10.8) 10^3/uL RBC 5.16 (4.18-5.48) 10^6 /uL Hgb 14.1 (14.0-18.0) g/dL Hct 43 (36-46) % MCV 84 (80-94) fL MCH 27 (27-31) pg MCHC 33 (31-36) g/dL RDW 17 H (10.5-15) % Plt Count 362 (150-450) 10^3/uL MPV 6.8 L (7.4-10.4) fL Neut % (Auto) 66.5 % Lymph % (Auto) 18.8 % [place] % (Auto) 13.2 % Eos % (Auto) 0.5 % Baso % (Auto) 1.0 % Absolute Neuts (auto) 4.2 (1.5-7.7) 10^3/ul Absolute Lymphs (auto) 1.2 (1.0-4.8) 10^3/ul Absolute Monos (auto) 0.8 (0-0.8) 10^3/ul Absolute Eos (auto) 0 (0-0.6) 10^3/ul Absolute Basos (auto) 0.1 (0-0.2) 10^3/ul Absolute Nucleated RBC 0 10^3/ul Nucleated RBC % 0.1 INR (Anticoag Therapy) 0.89 (0.77-1.02) APTT 27.2 (26.0-36.3) seconds Sodium (135-145) mmol/L Potassium (3.5-5.0) mmol/L Chloride (101-111) mmol/L Carbon Dioxide (22-32) mmol/L Anion Gap (2-11) mmol/L BUN (6-24) mg/dL Creatinine (0.67-1.17) mg/dL Est GFR ( Amer) (>60) Est GFR (Non-Af Amer) (>60) BUN/Creatinine Ratio (8-20) Glucose (70-100) mg/dL Lactic Acid (0.5-2.0) mmol/L Calcium (8.6-10.3) mg/dL Total Bilirubin (0.2-1.0) mg/dL AST (13-39) U/L ALT (7-52) U/L Alkaline Phosphatase (34-104) U/L Troponin I (<0.04) ng/mL Total Protein (6.4-8.9) g/dL Albumin (3.2-5.2) g/dL Globulin (2-4) g/dL Albumin/Globulin Ratio (1-3) Triglycerides mg/dL Cholesterol mg/dL LDL Cholesterol mg/dL HDL Cholesterol mg/dL Urine Color Straw Urine Appearance Clear Urine pH 5.0 (5-9) Ur Specific [place] 1.006 L (1.010-1.030) Urine Protein Negative (Negative) Urine Ketones Negative (Negative) Urine Blood 1+ A (Negative) Urine Nitrate Negative (Negative) Urine Bilirubin Negative (Negative) Urine Urobilinogen Negative (Negative) Ur Leukocyte Esterase Negative (Negative) Urine WBC (Auto) Trace(0-5/hpf) (Absent) Urine RBC (Auto) Absent (Absent) Urine Bacteria Absent (Absent) Urine Glucose Negative (Negative) Blood Type Antibody Screen 10/17/18 10/17/18 10/17/18 Range/Units 12:35 12:35 12:35 WBC (3.5-10.8) 10^3/uL RBC (4.18-5.48) 10^6 /uL Hgb (14.0-18.0) g/dL Hct (36-46) % MCV (80-94) fL MCH (27-31) pg MCHC (31-36) g/dL RDW (10.5-15) % Plt Count (150-450) 10^3/uL MPV (7.4-10.4) fL Neut % (Auto) % Lymph % (Auto) % [place] % (Auto) % Eos % (Auto) % Baso % (Auto) % Absolute Neuts (auto) (1.5-7.7) 10^3/ul Absolute Lymphs (auto) (1.0-4.8) 10^3/ul Absolute Monos (auto) (0-0.8) 10^3/ul Absolute Eos (auto) (0-0.6) 10^3/ul Absolute Basos (auto) (0-0.2) 10^3/ul Absolute Nucleated RBC 10^3/ul Nucleated RBC % INR (Anticoag Therapy) (0.77-1.02) APTT (26.0-36.3) seconds Sodium 132 L (135-145) mmol/L Potassium 3.9 (3.5-5.0) mmol/L Chloride 100 L (101-111) mmol/L Carbon Dioxide 23 (22-32) mmol/L Anion Gap 9 (2-11) mmol/L BUN 9 (6-24) mg/dL Creatinine 0.90 (0.67-1.17) mg/dL Est GFR ( Amer) 101.5 (>60) Est GFR (Non-Af Amer) 83.9 (>60) BUN/Creatinine Ratio 10.0 (8-20) Glucose 107 H (70-100) mg/dL Lactic Acid 2.2 H* (0.5-2.0) mmol/L Calcium 9.2 (8.6-10.3) mg/dL Total Bilirubin 0.80 (0.2-1.0) mg/dL AST 29 (13-39) U/L ALT 17 (7-52) U/L Alkaline Phosphatase 84 (34-104) U/L Troponin I 0.02 (<0.04) ng/mL Total Protein 7.3 (6.4-8.9) g/dL Albumin 3.9 (3.2-5.2) g/dL Globulin 3.4 (2-4) g/dL Albumin/Globulin Ratio 1.1 (1-3) Triglycerides 126 mg/dL Cholesterol 168 mg/dL LDL Cholesterol 51 mg/dL HDL Cholesterol 91.6 mg/dL Urine Color Urine Appearance Urine pH (5-9) Ur Specific [place] (1.010-1.030) Urine Protein (Negative) Urine Ketones (Negative) Urine Blood (Negative) Urine Nitrate (Negative) Urine Bilirubin (Negative) Urine Urobilinogen (Negative) Ur Leukocyte Esterase (Negative) Urine WBC (Auto) (Absent) Urine RBC (Auto) (Absent) Urine Bacteria (Absent) Urine Glucose (Negative) Blood Type O Positive Antibody Screen Negative Microbiology and Other Data: Microbiology 10/17/18 12:17 Urine Culture - Final Urine No Growth (<1,000 CFU/mL) Assess/Plan/Problems-Billing Assessment: 68 yo M h/o esophageal and renal ca, PE on xarelto p/w left CVA - Patient Problems (1) CVA (cerebral vascular accident) Comment: AFter sitting up BP fell and pt experienced increased right sided weakness remain flat crystalloids to boost BP neuro checks continue ASA no plavix in setting of ASA and xarelto for remote PE (2) Hypertension Comment: -Permissive HTN but maintain SBP<220 -Continue to keep head of bed flat (3) History of pulmonary embolism Comment: [email or web address] (4) DVT (deep venous thrombosis) Comment: [email or web address]
--- NOTE | 2018-10-19 17:23 | PN ---
Subjective Date of Service: 10/19/18 Length of Stay: 2 Days Neurology is following for stroke. Interval History: He had an episode of right yokasta-paresis lasting for 10 minutes. He had a lower than normal SBP in the 120's. At baseline, he stated that his BP is always in the 140s. He has regained strength on the right but still has moderate slurred speech. 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 He denied any headaches, visual disturbance, or swallowing difficulties. He denied any paresthesias. Review of Systems: Denied CP, SOB, or palpitations. Objective Active Medications: Aspirin (Aspirin 81 Mg Chew Tab*) 81 mg PO DAILY [facility] Last Admin: 10/19/18 08:08 Dose: 81 mg Atorvastatin Calcium (Lipitor*) 20 mg PO 1700 [facility] Last Admin: 10/19/18 16:49 Dose: 20 mg Lactated Ringer's (Lactated Ringers 1000 Ml Bag*) 1,000 mls @ 200 mls/hr IV PER RATE [facility] Stop: 10/19/18 18:59 Last Admin: 10/19/18 14:24 Dose: 200 mls/hr Pantoprazole Sodium (Protonix Tab*) 40 mg PO DAILY [facility] Last Admin: 10/19/18 08:09 Dose: 40 mg Rivaroxaban (Xarelto(*)) 20 mg PO DAILY [facility] Stop: 11/07/18 17:42 Last Admin: 10/19/18 08:09 Dose: 20 mg Trazodone HCl (Desyrel Tab*) 50 mg PO BEDTIME [facility] Stop: 10/21/18 20:59 Vital Signs 10/18/18 10/18/18 10/18/18 20:01 21:01 23:30 Temperature 97.6 F 97.5 F Pulse Rate 87 88 Respiratory 20 20 16 Rate Blood Pressure 177/90 169/101 (mmHg) O2 Sat by Pulse 98 98 99 Oximetry 10/18/18 10/19/18 10/19/18 23:36 03:15 07:43 Temperature 97.5 F 97.3 F Pulse Rate 85 82 Respiratory 16 16 16 Rate Blood Pressure 169/101 144/96 (mmHg) O2 Sat by Pulse 100 98 Oximetry 10/19/18 10/19/18 10/19/18 07:51 08:00 12:26 Temperature 97.7 F 97.9 F Pulse Rate 76 87 Respiratory 16 20 Rate Blood Pressure 155/86 159/82 (mmHg) O2 Sat by Pulse 99 99 99 Oximetry 10/19/18 10/19/18 10/19/18 13:01 13:08 13:46 Temperature Pulse Rate 110 101 Respiratory Rate Blood Pressure 134/72 137/84 128/74 (mmHg) O2 Sat by Pulse Oximetry 10/19/18 15:58 Temperature Pulse Rate Respiratory Rate Blood Pressure 154/80 (mmHg) O2 Sat by Pulse Oximetry Intake and Output Last 24 Hours 10/17/18 10/18/18 10/19/18 10/20/18 06:59 06:59 06:59 06:59 Intake Total 1600 2309 125 Output Total 500 1100 Balance 1100 1209 125 Weight 250 lb Intake: IV Fluids 1000 401 NS (0.9%) 401 IVPB 108 mag sulfate 108 Oral 600 1800 125 Output: Urine 500 1100 Other: Estimated Void Medium # Voids 2 Oxygen Devices in Use Now: None Neurology Exam: General: Well nourished, well developed, and in no acute distress HEENT: Normocephelic/atraumatic, sclera anicteric, mucous membranes moist Neck: Supple Chest: Clear to auscultation bilaterally Cardiovascular: Regular rate and rhythm without murmurs, rubs, gallops Extremities: No clubbing, cyanosis, or edema Neurological Findings: Awake, alert, and oriented to person, place, and time. Speech: moderate spastic dysarthria. Cranial Nerve: PERRL, EOM-I, right UMN facial droop Motor: Mild 5-/5 long tract pyramidal weakness on the right involving the right lower extremity to a greater extent. ` Sensation: intact to LT/PP bilaterally upper and lower extremities Deep Tendon Reflex: 2+ symmetric in the upper/lower extremities, Babinski - down going Coordination: motor dysmetria to finger to nose on the right. Gait: spastic hemiparesis on the right. He did not have worsening of symptoms when standing. Result Diagrams: 10/19/18 05:48 10/19/18 05:48 Additional Lab and Data: Lab Results 10/17/18 10/17/18 10/17/18 Range/Units 12:17 12:35 12:35 WBC 6.4 (3.5-10.8) 10^3/uL RBC 5.16 (4.18-5.48) 10^6 /uL Hgb 14.1 (14.0-18.0) g/dL Hct 43 (36-46) % MCV 84 (80-94) fL MCH 27 (27-31) pg MCHC 33 (31-36) g/dL RDW 17 H (10.5-15) % Plt Count 362 (150-450) 10^3/uL MPV 6.8 L (7.4-10.4) fL Neut % (Auto) 66.5 % Lymph % (Auto) 18.8 % [place] % (Auto) 13.2 % Eos % (Auto) 0.5 % Baso % (Auto) 1.0 % Absolute Neuts (auto) 4.2 (1.5-7.7) 10^3/ul Absolute Lymphs (auto) 1.2 (1.0-4.8) 10^3/ul Absolute Monos (auto) 0.8 (0-0.8) 10^3/ul Absolute Eos (auto) 0 (0-0.6) 10^3/ul Absolute Basos (auto) 0.1 (0-0.2) 10^3/ul Absolute Nucleated RBC 0 10^3/ul Nucleated RBC % 0.1 INR (Anticoag Therapy) 0.89 (0.77-1.02) APTT 27.2 (26.0-36.3) seconds Sodium (135-145) mmol/L Potassium (3.5-5.0) mmol/L Chloride (101-111) mmol/L Carbon Dioxide (22-32) mmol/L Anion Gap (2-11) mmol/L BUN (6-24) mg/dL Creatinine (0.67-1.17) mg/dL Est GFR ( Amer) (>60) Est GFR (Non-Af Amer) (>60) BUN/Creatinine Ratio (8-20) Glucose (70-100) mg/dL Lactic Acid (0.5-2.0) mmol/L Calcium (8.6-10.3) mg/dL Total Bilirubin (0.2-1.0) mg/dL AST (13-39) U/L ALT (7-52) U/L Alkaline Phosphatase (34-104) U/L Troponin I (<0.04) ng/mL Total Protein (6.4-8.9) g/dL Albumin (3.2-5.2) g/dL Globulin (2-4) g/dL Albumin/Globulin Ratio (1-3) Triglycerides mg/dL Cholesterol mg/dL LDL Cholesterol mg/dL HDL Cholesterol mg/dL Urine Color Straw Urine Appearance Clear Urine pH 5.0 (5-9) Ur Specific [place] 1.006 L (1.010-1.030) Urine Protein Negative (Negative) Urine Ketones Negative (Negative) Urine Blood 1+ A (Negative) Urine Nitrate Negative (Negative) Urine Bilirubin Negative (Negative) Urine Urobilinogen Negative (Negative) Ur Leukocyte Esterase Negative (Negative) Urine WBC (Auto) Trace(0-5/hpf) (Absent) Urine RBC (Auto) Absent (Absent) Urine Bacteria Absent (Absent) Urine Glucose Negative (Negative) Blood Type Antibody Screen 10/17/18 10/17/18 10/17/18 Range/Units 12:35 12:35 12:35 WBC (3.5-10.8) 10^3/uL RBC (4.18-5.48) 10^6 /uL Hgb (14.0-18.0) g/dL Hct (36-46) % MCV (80-94) fL MCH (27-31) pg MCHC (31-36) g/dL RDW (10.5-15) % Plt Count (150-450) 10^3/uL MPV (7.4-10.4) fL Neut % (Auto) % Lymph % (Auto) % [place] % (Auto) % Eos % (Auto) % Baso % (Auto) % Absolute Neuts (auto) (1.5-7.7) 10^3/ul Absolute Lymphs (auto) (1.0-4.8) 10^3/ul Absolute Monos (auto) (0-0.8) 10^3/ul Absolute Eos (auto) (0-0.6) 10^3/ul Absolute Basos (auto) (0-0.2) 10^3/ul Absolute Nucleated RBC 10^3/ul Nucleated RBC % INR (Anticoag Therapy) (0.77-1.02) APTT (26.0-36.3) seconds Sodium 132 L (135-145) mmol/L Potassium 3.9 (3.5-5.0) mmol/L Chloride 100 L (101-111) mmol/L Carbon Dioxide 23 (22-32) mmol/L Anion Gap 9 (2-11) mmol/L BUN 9 (6-24) mg/dL Creatinine 0.90 (0.67-1.17) mg/dL Est GFR ( Amer) 101.5 (>60) Est GFR (Non-Af Amer) 83.9 (>60) BUN/Creatinine Ratio 10.0 (8-20) Glucose 107 H (70-100) mg/dL Lactic Acid 2.2 H* (0.5-2.0) mmol/L Calcium 9.2 (8.6-10.3) mg/dL Total Bilirubin 0.80 (0.2-1.0) mg/dL AST 29 (13-39) U/L ALT 17 (7-52) U/L Alkaline Phosphatase 84 (34-104) U/L Troponin I 0.02 (<0.04) ng/mL Total Protein 7.3 (6.4-8.9) g/dL Albumin 3.9 (3.2-5.2) g/dL Globulin 3.4 (2-4) g/dL Albumin/Globulin Ratio 1.1 (1-3) Triglycerides 126 mg/dL Cholesterol 168 mg/dL LDL Cholesterol 51 mg/dL HDL Cholesterol 91.6 mg/dL Urine Color Urine Appearance Urine pH (5-9) Ur Specific [place] (1.010-1.030) Urine Protein (Negative) Urine Ketones (Negative) Urine Blood (Negative) Urine Nitrate (Negative) Urine Bilirubin (Negative) Urine Urobilinogen (Negative) Ur Leukocyte Esterase (Negative) Urine WBC (Auto) (Absent) Urine RBC (Auto) (Absent) Urine Bacteria (Absent) Urine Glucose (Negative) Blood Type O Positive Antibody Screen Negative Microbiology and Other Data: Microbiology 10/17/18 12:17 Urine Culture - Final Urine No Growth (<1,000 CFU/mL) Assessment/Plan 1. Acute lacunar stroke involving the left lenticulostriate branches of the MCA Etiology: most likely related to hypercoagulable state of malignancy and chronic hypertension The patient is very posture dependent as his symptoms worsen with standing or with a lower normal SBP. He stood up and took a few steps for me today and had significant unsteady gait due to right hemiparesis but did not have worsening of symptoms. Recommendations: - Agree with aspirin 81 mg daily and full dose Xarelto 20 mg nightly - Continue atorvastatin 20 mg daily (LDL 62) - Keep supine throughout the day if possible. Ok to get out of bed to use a bedside commode or urinal - Keep SBP between 140-<180 mmHg - Agree with IV fluids - If he develops worsening weakness and we cannot elevate his SBP, then he would need to be transferred to the ICU for neosynephrine gtt to maintain the above recommended SBP - Discussed and counseled about secondary stroke prevention. - VTE prophylaxis: on Xarelto I will continue to follow.
[2018-10-19] MEDS ORDERED: Polyethylene Glycol 3350* 17 GM PACKET PO PRN (19:27)
[2018-10-19] MEDS: traZODone TAB* 50 MG TAB PO SCH (20:34)
[2018-10-19] MEDS: Melatonin 3 MG TAB PO PRN (21:59)
[2018-10-20] MEDS: Pantoprazole TAB * 40 MG TAB PO SCH (08:17)
[2018-10-20] MEDS: Rivaroxaban TAB(*) 20 MG TAB PO SCH (08:17)
[2018-10-20] MEDS: Aspirin 81 mg CHEW TAB* 81 MG TAB.CHEW PO SCH (08:17)
--- NOTE | 2018-10-20 09:58 | PN ---
Subjective Date of Service: 10/20/18 Interval History: Reviewed events from yesterday Right hemiparesis 10-20 minutes after standing with concomitant drop in BP Resolved with lying flat about 20 minutes Up again this AM eating breakfast with no complaints but will lay flat when complete Objective Active Medications: Aspirin (Aspirin 81 Mg Chew Tab*) 81 mg PO DAILY [facility] Last Admin: 10/20/18 08:17 Dose: 81 mg Atorvastatin Calcium (Lipitor*) 20 mg PO 1700 [facility] Last Admin: 10/19/18 16:49 Dose: 20 mg Melatonin (Melatonin) 3 mg PO BEDTIME PRN PRN Reason: SLEEP Last Admin: 10/19/18 21:59 Dose: 3 mg Pantoprazole Sodium (Protonix Tab*) 40 mg PO DAILY [facility] Last Admin: 10/20/18 08:17 Dose: 40 mg Polyethylene Glycol/Electrolytes (Miralax*) 17 gm PO DAILY PRN PRN Reason: CONSTIPATION Rivaroxaban (Xarelto(*)) 20 mg PO DAILY [facility] Stop: 11/07/18 17:42 Last Admin: 10/20/18 08:17 Dose: 20 mg Trazodone HCl (Desyrel Tab*) 50 mg PO BEDTIME [facility] Stop: 10/21/18 20:59 Last Admin: 10/19/18 20:34 Dose: 50 mg Vital Signs - 8 hr 10/20/18 10/20/18 10/20/18 02:43 07:47 08:00 Temperature 97.2 F Pulse Rate 70 Respiratory 16 20 Rate Blood Pressure 156/92 (mmHg) O2 Sat by Pulse 99 99 Oximetry 10/20/18 08:03 Temperature 97.5 F Pulse Rate 64 Respiratory 21 Rate Blood Pressure 151/77 (mmHg) O2 Sat by Pulse 99 Oximetry Oxygen Devices in Use Now: None Appearance: NAD Ears/Nose/Mouth/Throat: NL Teeth, Lips, Gums, Clear Oropharnyx Neck: NL Appearance and Movements; NL JVP, Trachea Midline Respiratory: Symmetrical Chest Expansion and Respiratory Effort, Clear to Auscultation Cardiovascular: RRR Abdominal: NL Sounds; No Tenderness; No Distention, No Hepatosplenomegaly Lymphatic: No Cervical Adenopathy Extremities: No Edema Neurological: Alert and Oriented x 3, - - dysarthric, 5/5 strength left 4 to 4+ in right arm and leg. Result Diagrams: 10/19/18 05:48 10/19/18 05:48 Additional Lab and Data: Lab Results 10/17/18 10/17/18 10/17/18 Range/Units 12:17 12:35 12:35 WBC 6.4 (3.5-10.8) 10^3/uL RBC 5.16 (4.18-5.48) 10^6 /uL Hgb 14.1 (14.0-18.0) g/dL Hct 43 (36-46) % MCV 84 (80-94) fL MCH 27 (27-31) pg MCHC 33 (31-36) g/dL RDW 17 H (10.5-15) % Plt Count 362 (150-450) 10^3/uL MPV 6.8 L (7.4-10.4) fL Neut % (Auto) 66.5 % Lymph % (Auto) 18.8 % [place] % (Auto) 13.2 % Eos % (Auto) 0.5 % Baso % (Auto) 1.0 % Absolute Neuts (auto) 4.2 (1.5-7.7) 10^3/ul Absolute Lymphs (auto) 1.2 (1.0-4.8) 10^3/ul Absolute Monos (auto) 0.8 (0-0.8) 10^3/ul Absolute Eos (auto) 0 (0-0.6) 10^3/ul Absolute Basos (auto) 0.1 (0-0.2) 10^3/ul Absolute Nucleated RBC 0 10^3/ul Nucleated RBC % 0.1 INR (Anticoag Therapy) 0.89 (0.77-1.02) APTT 27.2 (26.0-36.3) seconds Sodium (135-145) mmol/L Potassium (3.5-5.0) mmol/L Chloride (101-111) mmol/L Carbon Dioxide (22-32) mmol/L Anion Gap (2-11) mmol/L BUN (6-24) mg/dL Creatinine (0.67-1.17) mg/dL Est GFR ( Amer) (>60) Est GFR (Non-Af Amer) (>60) BUN/Creatinine Ratio (8-20) Glucose (70-100) mg/dL Lactic Acid (0.5-2.0) mmol/L Calcium (8.6-10.3) mg/dL Total Bilirubin (0.2-1.0) mg/dL AST (13-39) U/L ALT (7-52) U/L Alkaline Phosphatase (34-104) U/L Troponin I (<0.04) ng/mL Total Protein (6.4-8.9) g/dL Albumin (3.2-5.2) g/dL Globulin (2-4) g/dL Albumin/Globulin Ratio (1-3) Triglycerides mg/dL Cholesterol mg/dL LDL Cholesterol mg/dL HDL Cholesterol mg/dL Urine Color Straw Urine Appearance Clear Urine pH 5.0 (5-9) Ur Specific [place] 1.006 L (1.010-1.030) Urine Protein Negative (Negative) Urine Ketones Negative (Negative) Urine Blood 1+ A (Negative) Urine Nitrate Negative (Negative) Urine Bilirubin Negative (Negative) Urine Urobilinogen Negative (Negative) Ur Leukocyte Esterase Negative (Negative) Urine WBC (Auto) Trace(0-5/hpf) (Absent) Urine RBC (Auto) Absent (Absent) Urine Bacteria Absent (Absent) Urine Glucose Negative (Negative) Blood Type Antibody Screen 10/17/18 10/17/18 10/17/18 Range/Units 12:35 12:35 12:35 WBC (3.5-10.8) 10^3/uL RBC (4.18-5.48) 10^6 /uL Hgb (14.0-18.0) g/dL Hct (36-46) % MCV (80-94) fL MCH (27-31) pg MCHC (31-36) g/dL RDW (10.5-15) % Plt Count (150-450) 10^3/uL MPV (7.4-10.4) fL Neut % (Auto) % Lymph % (Auto) % [place] % (Auto) % Eos % (Auto) % Baso % (Auto) % Absolute Neuts (auto) (1.5-7.7) 10^3/ul Absolute Lymphs (auto) (1.0-4.8) 10^3/ul Absolute Monos (auto) (0-0.8) 10^3/ul Absolute Eos (auto) (0-0.6) 10^3/ul Absolute Basos (auto) (0-0.2) 10^3/ul Absolute Nucleated RBC 10^3/ul Nucleated RBC % INR (Anticoag Therapy) (0.77-1.02) APTT (26.0-36.3) seconds Sodium 132 L (135-145) mmol/L Potassium 3.9 (3.5-5.0) mmol/L Chloride 100 L (101-111) mmol/L Carbon Dioxide 23 (22-32) mmol/L Anion Gap 9 (2-11) mmol/L BUN 9 (6-24) mg/dL Creatinine 0.90 (0.67-1.17) mg/dL Est GFR ( Amer) 101.5 (>60) Est GFR (Non-Af Amer) 83.9 (>60) BUN/Creatinine Ratio 10.0 (8-20) Glucose 107 H (70-100) mg/dL Lactic Acid 2.2 H* (0.5-2.0) mmol/L Calcium 9.2 (8.6-10.3) mg/dL Total Bilirubin 0.80 (0.2-1.0) mg/dL AST 29 (13-39) U/L ALT 17 (7-52) U/L Alkaline Phosphatase 84 (34-104) U/L Troponin I 0.02 (<0.04) ng/mL Total Protein 7.3 (6.4-8.9) g/dL Albumin 3.9 (3.2-5.2) g/dL Globulin 3.4 (2-4) g/dL Albumin/Globulin Ratio 1.1 (1-3) Triglycerides 126 mg/dL Cholesterol 168 mg/dL LDL Cholesterol 51 mg/dL HDL Cholesterol 91.6 mg/dL Urine Color Urine Appearance Urine pH (5-9) Ur Specific [place] (1.010-1.030) Urine Protein (Negative) Urine Ketones (Negative) Urine Blood (Negative) Urine Nitrate (Negative) Urine Bilirubin (Negative) Urine Urobilinogen (Negative) Ur Leukocyte Esterase (Negative) Urine WBC (Auto) (Absent) Urine RBC (Auto) (Absent) Urine Bacteria (Absent) Urine Glucose (Negative) Blood Type O Positive Antibody Screen Negative Microbiology and Other Data: Microbiology 10/17/18 12:17 Urine Culture - Final Urine No Growth (<1,000 CFU/mL) Assess/Plan/Problems-Billing 68 yo M h/o esophageal and renal ca, PE on xarelto pw left lacunar stroke - Patient Problems (1) CVA (cerebral vascular accident) Comment: symptoms related to BP, remain flat, up intermittently and evaluate crystalloids to boost BP continue, pressors if needed in ICU neuro checks continue ASA, statin no plavix in setting of ASA and xarelto for remote PE (2) Hypertension Comment: -Permissive HTN but maintain SBP 140-180 (3) History of pulmonary embolism Comment: iftikhar (4) DVT (deep venous thrombosis) Comment: iftikhar
[2018-10-20] MEDS ORDERED: NS 0.9% 500 ML* 500 ML IV ONE (15:00)
[2018-10-20] MEDS: Atorvastatin* 20 MG TAB PO SCH (16:21)
--- NOTE | 2018-10-20 17:26 | PN ---
Subjective Date of Service: 10/20/18 Length of Stay: 3 Days Neurology is following for stroke. Interval History: He was energetic and positive today as he was able to walk around with PT. However, 10 minutes following lunch, he had sudden onset right sided weakness. He was sitting up right for about 3 hours. He was then placed supine and received normal saline 500 cc bolus. His SBP was in the 120's when earlier it was in the 140's-150's. He seems to like this range. He had associated worsening dysarthria. Review of Systems: Denied CP, SOB, or palpitations. Objective Active Medications: Aspirin (Aspirin 81 Mg Chew Tab*) 81 mg PO DAILY [facility] Last Admin: 10/20/18 08:17 Dose: 81 mg Atorvastatin Calcium (Lipitor*) 20 mg PO 1700 [facility] Last Admin: 10/20/18 16:21 Dose: 20 mg Melatonin (Melatonin) 3 mg PO BEDTIME PRN PRN Reason: SLEEP Last Admin: 10/19/18 21:59 Dose: 3 mg Pantoprazole Sodium (Protonix Tab*) 40 mg PO DAILY [facility] Last Admin: 10/20/18 08:17 Dose: 40 mg Polyethylene Glycol/Electrolytes (Miralax*) 17 gm PO DAILY PRN PRN Reason: CONSTIPATION Rivaroxaban (Xarelto(*)) 20 mg PO DAILY [facility] Stop: 11/07/18 17:42 Last Admin: 10/20/18 08:17 Dose: 20 mg Trazodone HCl (Desyrel Tab*) 50 mg PO BEDTIME [facility] Stop: 10/21/18 20:59 Last Admin: 10/19/18 20:34 Dose: 50 mg Vital Signs 10/20/18 15:03 Temperature 97.7 F Pulse Rate 73 Respiratory 16 Rate Blood Pressure 149/84 (mmHg) O2 Sat by Pulse 100 Oximetry Intake and Output Last 24 Hours 10/18/18 10/19/18 10/20/18 10/21/18 06:59 06:59 06:59 06:59 Intake Total 1600 2309 1115 625 Output Total 500 1100 500 300 Balance 1100 1209 615 325 Weight 250 lb Intake: IV Fluids 1000 401 990 LR 990 NS (0.9%) 401 IVPB 108 mag sulfate 108 Oral 600 1800 125 625 Output: Urine 500 1100 500 300 Other: Estimated Void Medium Estimated Stool Amount Medium # Voids 2 Oxygen Devices in Use Now: None Neurology Exam: General: Well nourished, well developed, and in no acute distress HEENT: Normocephelic/atraumatic, sclera anicteric, mucous membranes moist Neck: Supple Chest: Clear to auscultation bilaterally Cardiovascular: Regular rate and rhythm without murmurs, rubs, gallops Extremities: No clubbing, cyanosis, or edema Neurological Findings: Awake, alert, and oriented to person, place, and time. Speech: moderate spastic dysarthria. Cranial Nerve: PERRL, EOM-I, right UMN facial droop Motor: Mild 5-/5 long tract pyramidal weakness on the right involving the right lower extremity to a greater extent. ` Sensation: intact to LT/PP bilaterally upper and lower extremities Deep Tendon Reflex: 2+ symmetric in the upper/lower extremities, Babinski - down going Coordination: motor dysmetria to finger to nose on the right. Gait: not assessed due to the left hemiparesis Result Diagrams: 10/19/18 05:48 10/19/18 05:48 Additional Lab and Data: Lab Results 10/17/18 10/17/18 10/17/18 Range/Units 12:17 12:35 12:35 WBC 6.4 (3.5-10.8) 10^3/uL RBC 5.16 (4.18-5.48) 10^6 /uL Hgb 14.1 (14.0-18.0) g/dL Hct 43 (36-46) % MCV 84 (80-94) fL MCH 27 (27-31) pg MCHC 33 (31-36) g/dL RDW 17 H (10.5-15) % Plt Count 362 (150-450) 10^3/uL MPV 6.8 L (7.4-10.4) fL Neut % (Auto) 66.5 % Lymph % (Auto) 18.8 % [place] % (Auto) 13.2 % Eos % (Auto) 0.5 % Baso % (Auto) 1.0 % Absolute Neuts (auto) 4.2 (1.5-7.7) 10^3/ul Absolute Lymphs (auto) 1.2 (1.0-4.8) 10^3/ul Absolute Monos (auto) 0.8 (0-0.8) 10^3/ul Absolute Eos (auto) 0 (0-0.6) 10^3/ul Absolute Basos (auto) 0.1 (0-0.2) 10^3/ul Absolute Nucleated RBC 0 10^3/ul Nucleated RBC % 0.1 INR (Anticoag Therapy) 0.89 (0.77-1.02) APTT 27.2 (26.0-36.3) seconds Sodium (135-145) mmol/L Potassium (3.5-5.0) mmol/L Chloride (101-111) mmol/L Carbon Dioxide (22-32) mmol/L Anion Gap (2-11) mmol/L BUN (6-24) mg/dL Creatinine (0.67-1.17) mg/dL Est GFR ( Amer) (>60) Est GFR (Non-Af Amer) (>60) BUN/Creatinine Ratio (8-20) Glucose (70-100) mg/dL Lactic Acid (0.5-2.0) mmol/L Calcium (8.6-10.3) mg/dL Total Bilirubin (0.2-1.0) mg/dL AST (13-39) U/L ALT (7-52) U/L Alkaline Phosphatase (34-104) U/L Troponin I (<0.04) ng/mL Total Protein (6.4-8.9) g/dL Albumin (3.2-5.2) g/dL Globulin (2-4) g/dL Albumin/Globulin Ratio (1-3) Triglycerides mg/dL Cholesterol mg/dL LDL Cholesterol mg/dL HDL Cholesterol mg/dL Urine Color Straw Urine Appearance Clear Urine pH 5.0 (5-9) Ur Specific [place] 1.006 L (1.010-1.030) Urine Protein Negative (Negative) Urine Ketones Negative (Negative) Urine Blood 1+ A (Negative) Urine Nitrate Negative (Negative) Urine Bilirubin Negative (Negative) Urine Urobilinogen Negative (Negative) Ur Leukocyte Esterase Negative (Negative) Urine WBC (Auto) Trace(0-5/hpf) (Absent) Urine RBC (Auto) Absent (Absent) Urine Bacteria Absent (Absent) Urine Glucose Negative (Negative) Blood Type Antibody Screen 10/17/18 10/17/18 10/17/18 Range/Units 12:35 12:35 12:35 WBC (3.5-10.8) 10^3/uL RBC (4.18-5.48) 10^6 /uL Hgb (14.0-18.0) g/dL Hct (36-46) % MCV (80-94) fL MCH (27-31) pg MCHC (31-36) g/dL RDW (10.5-15) % Plt Count (150-450) 10^3/uL MPV (7.4-10.4) fL Neut % (Auto) % Lymph % (Auto) % [place] % (Auto) % Eos % (Auto) % Baso % (Auto) % Absolute Neuts (auto) (1.5-7.7) 10^3/ul Absolute Lymphs (auto) (1.0-4.8) 10^3/ul Absolute Monos (auto) (0-0.8) 10^3/ul Absolute Eos (auto) (0-0.6) 10^3/ul Absolute Basos (auto) (0-0.2) 10^3/ul Absolute Nucleated RBC 10^3/ul Nucleated RBC % INR (Anticoag Therapy) (0.77-1.02) APTT (26.0-36.3) seconds Sodium 132 L (135-145) mmol/L Potassium 3.9 (3.5-5.0) mmol/L Chloride 100 L (101-111) mmol/L Carbon Dioxide 23 (22-32) mmol/L Anion Gap 9 (2-11) mmol/L BUN 9 (6-24) mg/dL Creatinine 0.90 (0.67-1.17) mg/dL Est GFR ( Amer) 101.5 (>60) Est GFR (Non-Af Amer) 83.9 (>60) BUN/Creatinine Ratio 10.0 (8-20) Glucose 107 H (70-100) mg/dL Lactic Acid 2.2 H* (0.5-2.0) mmol/L Calcium 9.2 (8.6-10.3) mg/dL Total Bilirubin 0.80 (0.2-1.0) mg/dL AST 29 (13-39) U/L ALT 17 (7-52) U/L Alkaline Phosphatase 84 (34-104) U/L Troponin I 0.02 (<0.04) ng/mL Total Protein 7.3 (6.4-8.9) g/dL Albumin 3.9 (3.2-5.2) g/dL Globulin 3.4 (2-4) g/dL Albumin/Globulin Ratio 1.1 (1-3) Triglycerides 126 mg/dL Cholesterol 168 mg/dL LDL Cholesterol 51 mg/dL HDL Cholesterol 91.6 mg/dL Urine Color Urine Appearance Urine pH (5-9) Ur Specific [place] (1.010-1.030) Urine Protein (Negative) Urine Ketones (Negative) Urine Blood (Negative) Urine Nitrate (Negative) Urine Bilirubin (Negative) Urine Urobilinogen (Negative) Ur Leukocyte Esterase (Negative) Urine WBC (Auto) (Absent) Urine RBC (Auto) (Absent) Urine Bacteria (Absent) Urine Glucose (Negative) Blood Type O Positive Antibody Screen Negative Microbiology and Other Data: Microbiology 10/17/18 12:17 Urine Culture - Final Urine No Growth (<1,000 CFU/mL) Assessment/Plan 1. Stuttering posture and post-prandial induced worsening right hemiparesis and dysarthria 2. Acute lacunar stroke involving the left lenticulostriate branches of the MCA Etiology: most likely related to hypercoagulable state of malignancy and chronic hypertension The patient is very posture dependent as his symptoms worsen with standing or with a lower normal SBP. He stood up and took a few steps for me today and had significant unsteady gait due to right hemiparesis but did not have worsening of symptoms. 3. History of PE in the setting of cancer- on Xarelto Recommendations: - Agree with low dose midodrine 5 mg 2-3 times daily to keep his SBP in the 140- 180's mmHg as clearly he is symptomatic with a SBP lower than 130 mmHg. - Continue with aspirin 81 mg daily and full dose Xarelto 20 mg nightly. - Consider compressive stockings to prevent orthostasis. - Continue atorvastatin 20 mg daily (LDL 62) - If he develops worsening weakness and we cannot elevate his SBP, then he would need to be transferred to the ICU for neosynephrine gtt to maintain the above recommended SBP - Discussed and counseled about secondary stroke prevention. - VTE prophylaxis: on Xarelto I will continue to follow.
[2018-10-20] MEDS: CMCS: Midodrine (NF) 5 MG TAB PO SCH (20:46)
[2018-10-20] MEDS: traZODone TAB* 50 MG TAB PO SCH (20:46)
[2018-10-20] MEDS: Melatonin 3 MG TAB PO PRN (21:40)
[2018-10-21] MEDS: Pantoprazole TAB * 40 MG TAB PO SCH (08:07)
[2018-10-21] MEDS: CMCS: Midodrine (NF) 5 MG TAB PO SCH ×3 (08:07→22:43)
[2018-10-21] MEDS: Rivaroxaban TAB(*) 20 MG TAB PO SCH (08:07)
[2018-10-21] MEDS: Aspirin 81 mg CHEW TAB* 81 MG TAB.CHEW PO SCH (08:07)
--- NOTE | 2018-10-21 10:58 | PN ---
Subjective Date of Service: 10/21/18 Interval History: No events. Tolerated initiation of midodrine and BP flat has been at goal Strength improving but remains dysarthric Pt will try to sit up and walk again today Objective Active Medications: Aspirin (Aspirin 81 Mg Chew Tab*) 81 mg PO DAILY [facility] Last Admin: 10/21/18 08:07 Dose: 81 mg Atorvastatin Calcium (Lipitor*) 20 mg PO 1700 [facility] Last Admin: 10/20/18 16:21 Dose: 20 mg Melatonin (Melatonin) 3 mg PO BEDTIME PRN PRN Reason: SLEEP Last Admin: 10/20/18 21:40 Dose: 3 mg Midodrine (Midodrine (Nf)) 5 mg PO TID [facility]; Protocol Last Admin: 10/21/18 08:07 Dose: 5 mg Pantoprazole Sodium (Protonix Tab*) 40 mg PO DAILY [facility] Last Admin: 10/21/18 08:07 Dose: 40 mg Polyethylene Glycol/Electrolytes (Miralax*) 17 gm PO DAILY PRN PRN Reason: CONSTIPATION Rivaroxaban (Xarelto(*)) 20 mg PO DAILY [facility] Stop: 11/07/18 17:42 Last Admin: 10/21/18 08:07 Dose: 20 mg Trazodone HCl (Desyrel Tab*) 50 mg PO BEDTIME [facility] Stop: 10/21/18 20:59 Last Admin: 10/20/18 20:46 Dose: 50 mg Vital Signs - 8 hr 10/21/18 10/21/18 10/21/18 03:31 07:27 07:52 Temperature 97.5 F 98.0 F Pulse Rate 61 71 Respiratory 18 18 Rate Blood Pressure 140/70 158/82 (mmHg) O2 Sat by Pulse 99 98 98 Oximetry 10/21/18 10/21/18 07:54 08:57 Temperature 98.2 F Pulse Rate 82 Respiratory 20 16 Rate Blood Pressure 145/78 (mmHg) O2 Sat by Pulse 99 Oximetry Oxygen Devices in Use Now: None Appearance: NAD Ears/Nose/Mouth/Throat: NL Teeth, Lips, Gums, Clear Oropharnyx Neck: NL Appearance and Movements; NL JVP, Trachea Midline Respiratory: Symmetrical Chest Expansion and Respiratory Effort, Clear to Auscultation Cardiovascular: RRR Abdominal: NL Sounds; No Tenderness; No Distention, No Hepatosplenomegaly Lymphatic: No Cervical Adenopathy Extremities: No Edema Neurological: Alert and Oriented x 3, - - slight droop on right, upper 5/5 strength RLE 4/5, slightly dysarthric Result Diagrams: 10/19/18 05:48 10/19/18 05:48 Additional Lab and Data: Lab Results 10/17/18 10/17/18 10/17/18 Range/Units 12:17 12:35 12:35 WBC 6.4 (3.5-10.8) 10^3/uL RBC 5.16 (4.18-5.48) 10^6 /uL Hgb 14.1 (14.0-18.0) g/dL Hct 43 (36-46) % MCV 84 (80-94) fL MCH 27 (27-31) pg MCHC 33 (31-36) g/dL RDW 17 H (10.5-15) % Plt Count 362 (150-450) 10^3/uL MPV 6.8 L (7.4-10.4) fL Neut % (Auto) 66.5 % Lymph % (Auto) 18.8 % Logan % (Auto) 13.2 % Eos % (Auto) 0.5 % Baso % (Auto) 1.0 % Absolute Neuts (auto) 4.2 (1.5-7.7) 10^3/ul Absolute Lymphs (auto) 1.2 (1.0-4.8) 10^3/ul Absolute Monos (auto) 0.8 (0-0.8) 10^3/ul Absolute Eos (auto) 0 (0-0.6) 10^3/ul Absolute Basos (auto) 0.1 (0-0.2) 10^3/ul Absolute Nucleated RBC 0 10^3/ul Nucleated RBC % 0.1 INR (Anticoag Therapy) 0.89 (0.77-1.02) APTT 27.2 (26.0-36.3) seconds Sodium (135-145) mmol/L Potassium (3.5-5.0) mmol/L Chloride (101-111) mmol/L Carbon Dioxide (22-32) mmol/L Anion Gap (2-11) mmol/L BUN (6-24) mg/dL Creatinine (0.67-1.17) mg/dL Est GFR ( Amer) (>60) Est GFR (Non-Af Amer) (>60) BUN/Creatinine Ratio (8-20) Glucose (70-100) mg/dL Lactic Acid (0.5-2.0) mmol/L Calcium (8.6-10.3) mg/dL Total Bilirubin (0.2-1.0) mg/dL AST (13-39) U/L ALT (7-52) U/L Alkaline Phosphatase (34-104) U/L Troponin I (<0.04) ng/mL Total Protein (6.4-8.9) g/dL Albumin (3.2-5.2) g/dL Globulin (2-4) g/dL Albumin/Globulin Ratio (1-3) Triglycerides mg/dL Cholesterol mg/dL LDL Cholesterol mg/dL HDL Cholesterol mg/dL Urine Color Straw Urine Appearance Clear Urine pH 5.0 (5-9) Ur Specific [place] 1.006 L (1.010-1.030) Urine Protein Negative (Negative) Urine Ketones Negative (Negative) Urine Blood 1+ A (Negative) Urine Nitrate Negative (Negative) Urine Bilirubin Negative (Negative) Urine Urobilinogen Negative (Negative) Ur Leukocyte Esterase Negative (Negative) Urine WBC (Auto) Trace(0-5/hpf) (Absent) Urine RBC (Auto) Absent (Absent) Urine Bacteria Absent (Absent) Urine Glucose Negative (Negative) Blood Type Antibody Screen 10/17/18 10/17/18 10/17/18 Range/Units 12:35 12:35 12:35 WBC (3.5-10.8) 10^3/uL RBC (4.18-5.48) 10^6 /uL Hgb (14.0-18.0) g/dL Hct (36-46) % MCV (80-94) fL MCH (27-31) pg MCHC (31-36) g/dL RDW (10.5-15) % Plt Count (150-450) 10^3/uL MPV (7.4-10.4) fL Neut % (Auto) % Lymph % (Auto) % Logan % (Auto) % Eos % (Auto) % Baso % (Auto) % Absolute Neuts (auto) (1.5-7.7) 10^3/ul Absolute Lymphs (auto) (1.0-4.8) 10^3/ul Absolute Monos (auto) (0-0.8) 10^3/ul Absolute Eos (auto) (0-0.6) 10^3/ul Absolute Basos (auto) (0-0.2) 10^3/ul Absolute Nucleated RBC 10^3/ul Nucleated RBC % INR (Anticoag Therapy) (0.77-1.02) APTT (26.0-36.3) seconds Sodium 132 L (135-145) mmol/L Potassium 3.9 (3.5-5.0) mmol/L Chloride 100 L (101-111) mmol/L Carbon Dioxide 23 (22-32) mmol/L Anion Gap 9 (2-11) mmol/L BUN 9 (6-24) mg/dL Creatinine 0.90 (0.67-1.17) mg/dL Est GFR ( Amer) 101.5 (>60) Est GFR (Non-Af Amer) 83.9 (>60) BUN/Creatinine Ratio 10.0 (8-20) Glucose 107 H (70-100) mg/dL Lactic Acid 2.2 H* (0.5-2.0) mmol/L Calcium 9.2 (8.6-10.3) mg/dL Total Bilirubin 0.80 (0.2-1.0) mg/dL AST 29 (13-39) U/L ALT 17 (7-52) U/L Alkaline Phosphatase 84 (34-104) U/L Troponin I 0.02 (<0.04) ng/mL Total Protein 7.3 (6.4-8.9) g/dL Albumin 3.9 (3.2-5.2) g/dL Globulin 3.4 (2-4) g/dL Albumin/Globulin Ratio 1.1 (1-3) Triglycerides 126 mg/dL Cholesterol 168 mg/dL LDL Cholesterol 51 mg/dL HDL Cholesterol 91.6 mg/dL Urine Color Urine Appearance Urine pH (5-9) Ur Specific [place] (1.010-1.030) Urine Protein (Negative) Urine Ketones (Negative) Urine Blood (Negative) Urine Nitrate (Negative) Urine Bilirubin (Negative) Urine Urobilinogen (Negative) Ur Leukocyte Esterase (Negative) Urine WBC (Auto) (Absent) Urine RBC (Auto) (Absent) Urine Bacteria (Absent) Urine Glucose (Negative) Blood Type O Positive Antibody Screen Negative Microbiology and Other Data: Microbiology 10/17/18 12:17 Urine Culture - Final Urine No Growth (<1,000 CFU/mL) Assess/Plan/Problems-Billing 68 yo M h/o esophageal and renal cell ca, PE 10 yrs prior in setting of ca, pw left large lacunar stroke - Patient Problems (1) CVA (cerebral vascular accident) Comment: Very sensative to changes in systemic pressure when standing. He has twice developed right hemiparesis after standing. Started midodrine and compression stockings 10/20 to help support BP. Will stand again today and evaluate symptoms. There is addition room to increase dose of midodrine. Cosideration for starting plavix and stooping xarelto has been discussed with neurology but this would also require agreement from patient based on risk if decided upon. neuro checks continue ASA, statin no plavix in setting of ASA and xarelto for remote PE (2) Hypertension Comment: -Permissive HTN but maintain SBP 140-180 midodrine 5mg TID to elevate BP (3) History of pulmonary embolism Comment: xarelto (4) DVT (deep venous thrombosis) Comment: xarelto
[2018-10-21] MEDS ORDERED: Clopidogrel TAB* 300 MG PO ONE (11:39)
--- NOTE | 2018-10-21 13:28 | PN ---
Subjective Date of Service: 10/21/18 Length of Stay: 4 Days Neurology is following for stroke. Interval History: He had another episode where he became nearly plegic on the right after he had breakfast. Immediately after laying him flat, his symptoms improved. He was still weak on the right but to a less degree. He had the same problem again after lunch. I had asked the nurse to obtain vitals during and immediately after he eats, every 3 minutes. The patient's SBP dropped from 170's to 140's 5 minutes after lunch, correlating with clinical examination of right leg weakness and increase in slurred speech. CT head without contrast today showed no evidence of ICH. He has a hypodensity that is now apparent on CT correlating with the MRI finding of left basal ganglia stroke. NIHSS would change from 4 to 10 post-prandially and back to 4 when he is flat. Review of Systems: Denied CP, SOB, or palpitations. Objective Active Medications: Atorvastatin Calcium (Lipitor*) 20 mg PO 1700 [facility] Last Admin: 10/20/18 16:21 Dose: 20 mg Clopidogrel Bisulfate (Plavix Tab*) 75 mg PO DAILY [facility] Melatonin (Melatonin) 3 mg PO BEDTIME PRN PRN Reason: SLEEP Last Admin: 10/20/18 21:40 Dose: 3 mg Midodrine (Midodrine (Nf)) 5 mg PO TID [facility]; Protocol Last Admin: 10/21/18 13:02 Dose: 5 mg Pantoprazole Sodium (Protonix Tab*) 40 mg PO DAILY [facility] Last Admin: 10/21/18 08:07 Dose: 40 mg Polyethylene Glycol/Electrolytes (Miralax*) 17 gm PO DAILY PRN PRN Reason: CONSTIPATION Rivaroxaban (Xarelto(*)) 20 mg PO DAILY [facility] Stop: 11/07/18 17:42 Last Admin: 10/21/18 08:07 Dose: 20 mg Trazodone HCl (Desyrel Tab*) 50 mg PO BEDTIME [facility] Stop: 10/21/18 20:59 Last Admin: 10/20/18 20:46 Dose: 50 mg Vital Signs 10/20/18 10/21/18 10/21/18 23:27 03:31 07:27 Temperature 97.9 F 97.5 F 98.0 F Pulse Rate 78 61 71 Respiratory 19 18 18 Rate Blood Pressure 156/68 140/70 158/82 (mmHg) O2 Sat by Pulse 97 99 98 Oximetry 10/21/18 10/21/18 10/21/18 07:52 07:54 08:57 Temperature 98.2 F Pulse Rate 82 Respiratory 20 16 Rate Blood Pressure 145/78 (mmHg) O2 Sat by Pulse 98 99 Oximetry Intake and Output Last 24 Hours 10/19/18 10/20/18 10/21/18 10/22/18 06:59 06:59 06:59 06:59 Intake Total 2309 1115 725 360 Output Total 1363 736 4513 180 Balance 1209 615 -825 180 Intake: IV Fluids 401 990 LR 990 NS (0.9%) 401 IVPB 108 mag sulfate 108 Oral 1800 125 725 360 Output: Urine 7439 440 7039 180 Other: Estimated Stool Amount Medium # Voids 3 Oxygen Devices in Use Now: None Neurology Exam: General: Well nourished, well developed, and in no acute distress HEENT: Normocephelic/atraumatic, sclera anicteric, mucous membranes moist Neck: Supple Chest: Clear to auscultation bilaterally Cardiovascular: Regular rate and rhythm without murmurs, rubs, gallops Extremities: No clubbing, cyanosis, or edema Neurological Findings: Awake, alert, and oriented to person, place, and time. Speech: moderate spastic dysarthria. Cranial Nerve: PERRL, EOM-I, right UMN facial droop Motor: Mild 5-/5 long tract pyramidal weakness on the right involving the right lower extremity to a greater extent. ` Sensation: intact to LT/PP bilaterally upper and lower extremities Deep Tendon Reflex: 2+ symmetric in the upper/lower extremities, Babinski - down going Coordination: motor dysmetria to finger to nose on the right. Gait: not assessed due to the left hemiparesis Result Diagrams: 10/19/18 05:48 10/19/18 05:48 Additional Lab and Data: Lab Results 10/17/18 10/17/18 10/17/18 Range/Units 12:17 12:35 12:35 WBC 6.4 (3.5-10.8) 10^3/uL RBC 5.16 (4.18-5.48) 10^6 /uL Hgb 14.1 (14.0-18.0) g/dL Hct 43 (36-46) % MCV 84 (80-94) fL MCH 27 (27-31) pg MCHC 33 (31-36) g/dL RDW 17 H (10.5-15) % Plt Count 362 (150-450) 10^3/uL MPV 6.8 L (7.4-10.4) fL Neut % (Auto) 66.5 % Lymph % (Auto) 18.8 % [place] % (Auto) 13.2 % Eos % (Auto) 0.5 % Baso % (Auto) 1.0 % Absolute Neuts (auto) 4.2 (1.5-7.7) 10^3/ul Absolute Lymphs (auto) 1.2 (1.0-4.8) 10^3/ul Absolute Monos (auto) 0.8 (0-0.8) 10^3/ul Absolute Eos (auto) 0 (0-0.6) 10^3/ul Absolute Basos (auto) 0.1 (0-0.2) 10^3/ul Absolute Nucleated RBC 0 10^3/ul Nucleated RBC % 0.1 INR (Anticoag Therapy) 0.89 (0.77-1.02) APTT 27.2 (26.0-36.3) seconds Sodium (135-145) mmol/L Potassium (3.5-5.0) mmol/L Chloride (101-111) mmol/L Carbon Dioxide (22-32) mmol/L Anion Gap (2-11) mmol/L BUN (6-24) mg/dL Creatinine (0.67-1.17) mg/dL Est GFR ( Amer) (>60) Est GFR (Non-Af Amer) (>60) BUN/Creatinine Ratio (8-20) Glucose (70-100) mg/dL Lactic Acid (0.5-2.0) mmol/L Calcium (8.6-10.3) mg/dL Total Bilirubin (0.2-1.0) mg/dL AST (13-39) U/L ALT (7-52) U/L Alkaline Phosphatase (34-104) U/L Troponin I (<0.04) ng/mL Total Protein (6.4-8.9) g/dL Albumin (3.2-5.2) g/dL Globulin (2-4) g/dL Albumin/Globulin Ratio (1-3) Triglycerides mg/dL Cholesterol mg/dL LDL Cholesterol mg/dL HDL Cholesterol mg/dL Urine Color Straw Urine Appearance Clear Urine pH 5.0 (5-9) Ur Specific [place] 1.006 L (1.010-1.030) Urine Protein Negative (Negative) Urine Ketones Negative (Negative) Urine Blood 1+ A (Negative) Urine Nitrate Negative (Negative) Urine Bilirubin Negative (Negative) Urine Urobilinogen Negative (Negative) Ur Leukocyte Esterase Negative (Negative) Urine WBC (Auto) Trace(0-5/hpf) (Absent) Urine RBC (Auto) Absent (Absent) Urine Bacteria Absent (Absent) Urine Glucose Negative (Negative) Blood Type Antibody Screen 10/17/18 10/17/18 10/17/18 Range/Units 12:35 12:35 12:35 WBC (3.5-10.8) 10^3/uL RBC (4.18-5.48) 10^6 /uL Hgb (14.0-18.0) g/dL Hct (36-46) % MCV (80-94) fL MCH (27-31) pg MCHC (31-36) g/dL RDW (10.5-15) % Plt Count (150-450) 10^3/uL MPV (7.4-10.4) fL Neut % (Auto) % Lymph % (Auto) % [place] % (Auto) % Eos % (Auto) % Baso % (Auto) % Absolute Neuts (auto) (1.5-7.7) 10^3/ul Absolute Lymphs (auto) (1.0-4.8) 10^3/ul Absolute Monos (auto) (0-0.8) 10^3/ul Absolute Eos (auto) (0-0.6) 10^3/ul Absolute Basos (auto) (0-0.2) 10^3/ul Absolute Nucleated RBC 10^3/ul Nucleated RBC % INR (Anticoag Therapy) (0.77-1.02) APTT (26.0-36.3) seconds Sodium 132 L (135-145) mmol/L Potassium 3.9 (3.5-5.0) mmol/L Chloride 100 L (101-111) mmol/L Carbon Dioxide 23 (22-32) mmol/L Anion Gap 9 (2-11) mmol/L BUN 9 (6-24) mg/dL Creatinine 0.90 (0.67-1.17) mg/dL Est GFR ( Amer) 101.5 (>60) Est GFR (Non-Af Amer) 83.9 (>60) BUN/Creatinine Ratio 10.0 (8-20) Glucose 107 H (70-100) mg/dL Lactic Acid 2.2 H* (0.5-2.0) mmol/L Calcium 9.2 (8.6-10.3) mg/dL Total Bilirubin 0.80 (0.2-1.0) mg/dL AST 29 (13-39) U/L ALT 17 (7-52) U/L Alkaline Phosphatase 84 (34-104) U/L Troponin I 0.02 (<0.04) ng/mL Total Protein 7.3 (6.4-8.9) g/dL Albumin 3.9 (3.2-5.2) g/dL Globulin 3.4 (2-4) g/dL Albumin/Globulin Ratio 1.1 (1-3) Triglycerides 126 mg/dL Cholesterol 168 mg/dL LDL Cholesterol 51 mg/dL HDL Cholesterol 91.6 mg/dL Urine Color Urine Appearance Urine pH (5-9) Ur Specific [place] (1.010-1.030) Urine Protein (Negative) Urine Ketones (Negative) Urine Blood (Negative) Urine Nitrate (Negative) Urine Bilirubin (Negative) Urine Urobilinogen (Negative) Ur Leukocyte Esterase (Negative) Urine WBC (Auto) (Absent) Urine RBC (Auto) (Absent) Urine Bacteria (Absent) Urine Glucose (Negative) Blood Type O Positive Antibody Screen Negative Microbiology and Other Data: Microbiology 10/17/18 12:17 Urine Culture - Final Urine No Growth (<1,000 CFU/mL) Assessment/Plan 1. Fluctuating stroke symptoms in the setting of postprandial and orthostatic hypotension- a drop in SBP by more than 20 mmHg occurred 5 minutes following lunch. 2. Acute lacunar stroke involving the left lenticulostriate branches of the MCA Etiology: most likely related to hypercoagulable state of malignancy and chronic hypertension 3. History of PE in the setting of cancer- on Xarelto Recommendations: - Tolerating midodrine 5 mg 2-3 times daily to keep his SBP in the 140-180's mmHg. - Switched aspirin to Plavix 75 mg daily and continue full dose Xarelto 20 mg nightly. Please change the Xarelto dose to at night and give the Plavix in the morning. I also will load him with Plavix 300 mg PO x 1 now. I reviewed the CTA head and neck images in detail and there seems to be a large calcification in the internal cerebral portion of the ICA post the ophthalmic artery branch which may be causing the area of stenosis to the MCA and it's perforators. - Consider compressive stockings to help prevent orthostasis. - Continue atorvastatin 20 mg daily (LDL 62) - I discussed the case with . - Discussed and counseled about secondary stroke prevention. - VTE prophylaxis: on Xarelto Prognosis: guarded and the patient is at high risk for developing ICH with Xarelto and Plavix therapy, but also worsening of his current neurological status potential fixed severe neurological deficit on the right. I discussed these risks. The patient is extremely concerned about becoming plegic on the right and agreed with changing the anti-platelet therapy. The use of Plavix is only short term for the next two weeks, then we can switch to a lower dose aspirin once the stroke stabilizes. Time spent: 40 minutes.
[2018-10-21] MEDS: Atorvastatin* 20 MG TAB PO SCH (17:55)
[2018-10-21] MEDS: Melatonin 3 MG TAB PO PRN (22:43)
[2018-10-21] MEDS: traZODone TAB* 50 MG TAB PO PRN (22:43)
[2018-10-22] MEDS: Clopidogrel TAB* 75 MG PO SCH (08:30)
[2018-10-22] MEDS: CMCS: Midodrine (NF) 5 MG TAB PO SCH ×3 (08:30→21:52)
[2018-10-22] MEDS: Rivaroxaban TAB(*) 20 MG TAB PO SCH (08:31)
[2018-10-22] MEDS: Pantoprazole TAB * 40 MG TAB PO SCH (08:31)
--- NOTE | 2018-10-22 13:13 | PN ---
Subjective Date of Service: 10/22/18 Length of Stay: 5 Days Neurology is following for stroke. Interval History: He walked with PT this morning. He did not have any symptoms of worsening right yokasta-paresis. He continues to have significant weakness on the right side though. He has no headache. He has fixed right facial droop. He denied any evidence of bleeding. Review of Systems: Denied CP, SOB, or palpitations. Objective Active Medications: Atorvastatin Calcium (Lipitor*) 20 mg PO 1700 [facility] Last Admin: 10/21/18 17:55 Dose: 20 mg Clopidogrel Bisulfate (Plavix Tab*) 75 mg PO DAILY [facility] Last Admin: 10/22/18 08:30 Dose: 75 mg Melatonin (Melatonin) 3 mg PO BEDTIME PRN PRN Reason: SLEEP Last Admin: 10/21/18 22:43 Dose: 3 mg Midodrine (Midodrine (Nf)) 5 mg PO TID [facility]; Protocol Last Admin: 10/22/18 08:30 Dose: 5 mg Pantoprazole Sodium (Protonix Tab*) 40 mg PO DAILY [facility] Last Admin: 10/22/18 08:31 Dose: 40 mg Polyethylene Glycol/Electrolytes (Miralax*) 17 gm PO DAILY PRN PRN Reason: CONSTIPATION Rivaroxaban (Xarelto(*)) 20 mg PO DAILY [facility] Stop: 11/07/18 17:42 Last Admin: 10/22/18 08:31 Dose: 20 mg Trazodone HCl (Desyrel Tab*) 50 mg PO BEDTIME PRN PRN Reason: SLEEP Last Admin: 10/21/18 22:43 Dose: 50 mg Vital Signs 10/22/18 10/22/18 10/22/18 08:00 10:08 10:12 Temperature Pulse Rate 87 87 Respiratory 18 Rate Blood Pressure 157/81 156/89 (mmHg) O2 Sat by Pulse Oximetry 10/22/18 11:49 Temperature 99.7 F Pulse Rate 69 Respiratory 16 Rate Blood Pressure 150/83 (mmHg) O2 Sat by Pulse 99 Oximetry Intake and Output Last 24 Hours 10/20/18 10/21/18 10/22/18 10/23/18 06:59 06:59 06:59 06:59 Intake Total 3647 094 3338 Output Total 500 1550 1655 Balance 615 -825 225 Intake: IV Fluids 990 LR 990 Oral 946 826 7397 Output: Urine 500 1550 1655 Other: # Bowel Movements 1 Estimated Stool Amount Medium Small # Voids 3 Oxygen Devices in Use Now: None Neurology Exam: General: Well nourished, well developed, and in no acute distress HEENT: Normocephelic/atraumatic, sclera anicteric, mucous membranes moist Neck: Supple Chest: Clear to auscultation bilaterally Cardiovascular: Regular rate and rhythm without murmurs, rubs, gallops Extremities: No clubbing, cyanosis, or edema Neurological Findings: Awake, alert, and oriented to person, place, and time. Speech: moderate spastic dysarthria. Cranial Nerve: PERRL, EOM-I, right UMN facial droop Motor: Mild 5-/5 long tract pyramidal weakness on the right involving the right lower extremity to a greater extent. ` Sensation: intact to LT/PP bilaterally upper and lower extremities Deep Tendon Reflex: 2+ symmetric in the upper/lower extremities, Babinski - down going Coordination: motor dysmetria to finger to nose on the right. Gait: not assessed due to the left hemiparesis but he did state to me that he walked with two person assist up to the door today. Result Diagrams: 10/19/18 05:48 10/19/18 05:48 Additional Lab and Data: Lab Results 10/17/18 10/17/18 10/17/18 Range/Units 12:17 12:35 12:35 WBC 6.4 (3.5-10.8) 10^3/uL RBC 5.16 (4.18-5.48) 10^6 /uL Hgb 14.1 (14.0-18.0) g/dL Hct 43 (36-46) % MCV 84 (80-94) fL MCH 27 (27-31) pg MCHC 33 (31-36) g/dL RDW 17 H (10.5-15) % Plt Count 362 (150-450) 10^3/uL MPV 6.8 L (7.4-10.4) fL Neut % (Auto) 66.5 % Lymph % (Auto) 18.8 % Cass % (Auto) 13.2 % Eos % (Auto) 0.5 % Baso % (Auto) 1.0 % Absolute Neuts (auto) 4.2 (1.5-7.7) 10^3/ul Absolute Lymphs (auto) 1.2 (1.0-4.8) 10^3/ul Absolute Monos (auto) 0.8 (0-0.8) 10^3/ul Absolute Eos (auto) 0 (0-0.6) 10^3/ul Absolute Basos (auto) 0.1 (0-0.2) 10^3/ul Absolute Nucleated RBC 0 10^3/ul Nucleated RBC % 0.1 INR (Anticoag Therapy) 0.89 (0.77-1.02) APTT 27.2 (26.0-36.3) seconds Sodium (135-145) mmol/L Potassium (3.5-5.0) mmol/L Chloride (101-111) mmol/L Carbon Dioxide (22-32) mmol/L Anion Gap (2-11) mmol/L BUN (6-24) mg/dL Creatinine (0.67-1.17) mg/dL Est GFR ( Amer) (>60) Est GFR (Non-Af Amer) (>60) BUN/Creatinine Ratio (8-20) Glucose (70-100) mg/dL Lactic Acid (0.5-2.0) mmol/L Calcium (8.6-10.3) mg/dL Total Bilirubin (0.2-1.0) mg/dL AST (13-39) U/L ALT (7-52) U/L Alkaline Phosphatase (34-104) U/L Troponin I (<0.04) ng/mL Total Protein (6.4-8.9) g/dL Albumin (3.2-5.2) g/dL Globulin (2-4) g/dL Albumin/Globulin Ratio (1-3) Triglycerides mg/dL Cholesterol mg/dL LDL Cholesterol mg/dL HDL Cholesterol mg/dL Urine Color Straw Urine Appearance Clear Urine pH 5.0 (5-9) Ur Specific Shiner 1.006 L (1.010-1.030) Urine Protein Negative (Negative) Urine Ketones Negative (Negative) Urine Blood 1+ A (Negative) Urine Nitrate Negative (Negative) Urine Bilirubin Negative (Negative) Urine Urobilinogen Negative (Negative) Ur Leukocyte Esterase Negative (Negative) Urine WBC (Auto) Trace(0-5/hpf) (Absent) Urine RBC (Auto) Absent (Absent) Urine Bacteria Absent (Absent) Urine Glucose Negative (Negative) Blood Type Antibody Screen 10/17/18 10/17/18 10/17/18 Range/Units 12:35 12:35 12:35 WBC (3.5-10.8) 10^3/uL RBC (4.18-5.48) 10^6 /uL Hgb (14.0-18.0) g/dL Hct (36-46) % MCV (80-94) fL MCH (27-31) pg MCHC (31-36) g/dL RDW (10.5-15) % Plt Count (150-450) 10^3/uL MPV (7.4-10.4) fL Neut % (Auto) % Lymph % (Auto) % Cass % (Auto) % Eos % (Auto) % Baso % (Auto) % Absolute Neuts (auto) (1.5-7.7) 10^3/ul Absolute Lymphs (auto) (1.0-4.8) 10^3/ul Absolute Monos (auto) (0-0.8) 10^3/ul Absolute Eos (auto) (0-0.6) 10^3/ul Absolute Basos (auto) (0-0.2) 10^3/ul Absolute Nucleated RBC 10^3/ul Nucleated RBC % INR (Anticoag Therapy) (0.77-1.02) APTT (26.0-36.3) seconds Sodium 132 L (135-145) mmol/L Potassium 3.9 (3.5-5.0) mmol/L Chloride 100 L (101-111) mmol/L Carbon Dioxide 23 (22-32) mmol/L Anion Gap 9 (2-11) mmol/L BUN 9 (6-24) mg/dL Creatinine 0.90 (0.67-1.17) mg/dL Est GFR ( Amer) 101.5 (>60) Est GFR (Non-Af Amer) 83.9 (>60) BUN/Creatinine Ratio 10.0 (8-20) Glucose 107 H (70-100) mg/dL Lactic Acid 2.2 H* (0.5-2.0) mmol/L Calcium 9.2 (8.6-10.3) mg/dL Total Bilirubin 0.80 (0.2-1.0) mg/dL AST 29 (13-39) U/L ALT 17 (7-52) U/L Alkaline Phosphatase 84 (34-104) U/L Troponin I 0.02 (<0.04) ng/mL Total Protein 7.3 (6.4-8.9) g/dL Albumin 3.9 (3.2-5.2) g/dL Globulin 3.4 (2-4) g/dL Albumin/Globulin Ratio 1.1 (1-3) Triglycerides 126 mg/dL Cholesterol 168 mg/dL LDL Cholesterol 51 mg/dL HDL Cholesterol 91.6 mg/dL Urine Color Urine Appearance Urine pH (5-9) Ur Specific Shiner (1.010-1.030) Urine Protein (Negative) Urine Ketones (Negative) Urine Blood (Negative) Urine Nitrate (Negative) Urine Bilirubin (Negative) Urine Urobilinogen (Negative) Ur Leukocyte Esterase (Negative) Urine WBC (Auto) (Absent) Urine RBC (Auto) (Absent) Urine Bacteria (Absent) Urine Glucose (Negative) Blood Type O Positive Antibody Screen Negative Microbiology and Other Data: Microbiology 10/17/18 12:17 Urine Culture - Final Urine No Growth (<1,000 CFU/mL) Assessment/Plan 1. Fluctuating stroke symptoms in the setting of postprandial and orthostatic hypotension- slowly improving with midodrine and compressive stockings. Appreciate PT for educating the patient regarding orthostatic maneuvers with leg stretches. 2. Acute lacunar stroke involving the left lenticulostriate branches of the MCA Etiology: most likely related to hypercoagulable state of malignancy, age, and chronic hypertension 3. History of PE in the setting of cancer- He is in remission. on Xarelto Recommendations: - Tolerating midodrine 5 mg 2-3 times daily to keep his SBP in the 140-180's mmHg. - Switched aspirin to Plavix 75 mg daily and continue full dose Xarelto 20 mg nightly. Please change the Xarelto dose to at night and give the Plavix in the morning. - Continue compressive stockings - Continue atorvastatin 20 mg daily (LDL 62) - Discussed and counseled about secondary stroke prevention. - VTE prophylaxis: on Xarelto - I reiterated the risk of ICH with Plavix and Xarelto therapy. I plan to switch him to aspirin 81 mg daily in 30 days to minimize that risk. Follow up with me in 4-6 weeks. We will arrange an appointment. The patient is ready for rehabilitation. Time spent: 25 minutes.
[2018-10-22] MEDS: Atorvastatin* 20 MG TAB PO SCH (16:15)
--- NOTE | 2018-10-22 18:01 | PN ---
Subjective Date of Service: 10/22/18 Interval History: Was able to walk with minimal 2 person assist with PT. Still feels weaker on right but not as acutely so with standing up and blood pressures more preserved. Denies chest pain, SOB, abdominal pain, f/c/n/v. Interested in PMRU and second choice [facility]. Objective Active Medications: Atorvastatin Calcium (Lipitor*) 20 mg PO 1700 [facility] Last Admin: 10/22/18 16:15 Dose: 20 mg Clopidogrel Bisulfate (Plavix Tab*) 75 mg PO DAILY [facility] Last Admin: 10/22/18 08:30 Dose: 75 mg Melatonin (Melatonin) 3 mg PO BEDTIME PRN PRN Reason: SLEEP Last Admin: 10/21/18 22:43 Dose: 3 mg Midodrine (Midodrine (Nf)) 5 mg PO TID [facility]; Protocol Last Admin: 10/22/18 13:56 Dose: 5 mg Pantoprazole Sodium (Protonix Tab*) 40 mg PO DAILY [facility] Last Admin: 10/22/18 08:31 Dose: 40 mg Polyethylene Glycol/Electrolytes (Miralax*) 17 gm PO DAILY PRN PRN Reason: CONSTIPATION Rivaroxaban (Xarelto(*)) 20 mg PO 1700 [facility] Stop: 11/07/18 17:42 Trazodone HCl (Desyrel Tab*) 50 mg PO BEDTIME PRN PRN Reason: SLEEP Last Admin: 10/21/18 22:43 Dose: 50 mg Vital Signs - 8 hr 10/22/18 10/22/18 10/22/18 10:08 10:12 11:49 Temperature 99.7 F Pulse Rate 87 87 69 Respiratory 16 Rate Blood Pressure 157/81 156/89 150/83 (mmHg) O2 Sat by Pulse 99 Oximetry 10/22/18 10/22/18 14:36 15:54 Temperature 97.3 F 97.7 F Pulse Rate 78 75 Respiratory 16 16 Rate Blood Pressure 151/81 179/90 (mmHg) O2 Sat by Pulse 99 99 Oximetry Oxygen Devices in Use Now: None Appearance: NAD Eyes: No Scleral Icterus, PERRLA Ears/Nose/Mouth/Throat: NL Teeth, Lips, Gums Neck: NL Appearance and Movements; NL JVP Respiratory: Symmetrical Chest Expansion and Respiratory Effort, Clear to Auscultation Cardiovascular: NL Sounds; No Murmurs; No JVD, RRR Abdominal: NL Sounds; No Tenderness; No Distention, No Hepatosplenomegaly Extremities: No Edema Skin: No Rash or Ulcers Neurological: Alert and Oriented x 3, - - speech slightly slurred. right facial droop. 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 Nutrition: Taking PO's Result Diagrams: 10/19/18 05:48 10/19/18 05:48 Microbiology and Other Data: Microbiology 10/17/18 12:17 Urine Urine Culture - Final No Growth (<1,000 CFU/mL) Assess/Plan/Problems-Billing 68 yo male PMH esophagus and kidney cancer, PE 10 years ago ( on Xarelto) presenting 10/17 with right hemiparesis and left basal ganglia into left corpus radiata lacunar stroke. Course complicated by stuttering right hemiparesis with postprandial and orthostatic hypotension slowly improving with midodrine and compressive stockings. - Patient Problems (1) CVA (cerebral vascular accident) Current Visit: Yes Status: Acute Code(s): I63.9 - CEREBRAL INFARCTION, UNSPECIFIED SNOMED Code(s): 212479554 Comment: Very sensative to changes in systemic pressure when standing. He has twice developed right hemiparesis after standing. Continue midodrine 5mg TID and compression stockings. now s/p plavix load 10/21, continue plavix 75mg in AMs. no longer on aspirin Continue Xarelto 20mg daily but at night neuro checks continue atorvastatin 20mg PT/OT, plan to PMRU 10/23 (2) DVT (deep venous thrombosis) Current Visit: Yes Status: Acute Code(s): I82.409 - ACUTE EMBOLISM AND THOMBOS UNSP DEEP VN UNSP LOWER EXTREMITY SNOMED Code(s): 282878583 Comment: xarelto (3) DVT prophylaxis Current Visit: Yes Status: Acute Code(s): CEX2912 - SNOMED Code(s): 806990073 Comment: -On Xarelto (4) History of pulmonary embolism Current Visit: Yes Status: Acute Code(s): Z86.711 - PERSONAL HISTORY OF PULMONARY EMBOLISM SNOMED Code(s): 918869624 Comment: xarelto (5) Hypertension Current Visit: Yes Status: Acute Code(s): I10 - ESSENTIAL (PRIMARY) HYPERTENSION SNOMED Code(s): 62885911 Comment: -Permissive HTN but maintain SBP 140-180 midodrine 5mg TID to elevate BP Status and Disposition: medicine inpatient. Planned d/c to PMRU 10/23.
[2018-10-22] MEDS: traZODone TAB* 50 MG TAB PO PRN (21:51)
[2018-10-22] MEDS: Melatonin 3 MG TAB PO PRN (21:52)
[2018-10-23] MEDS: CMCS: Midodrine (NF) 5 MG TAB PO SCH (09:19)
[2018-10-23] MEDS: Pantoprazole TAB * 40 MG TAB PO SCH (09:19)
[2018-10-23] MEDS: Clopidogrel TAB* 75 MG PO SCH (09:19)
[2018-10-23 09:20] VITALS: BP 157/84
--- NOTE | 2018-10-23 10:10 | DS ---
DATE OF ADMISSION: 10/17/2018. DATE OF DISCHARGE: 10/23/2018. PRIMARY CARE PHYSICIAN: Dr. Carbajal has served as default PCP since Dr. Paris retired. ADMITTING PHYSICIAN: Dr. Romario Magana. ATTENDING PHYSICIAN ON THE DAY OF DISCHARGE: Dr. Eren Quinones. CHIEF COMPLAINT: Slurred speech, right-sided weakness. PRINCIPAL DIAGNOSIS: Lacunar ischemic infarction of the left basal ganglia and malik radiata. HISTORY OF PRESENT ILLNESS: Brandon Chambers is a 68-year-old male with a past medical history of remote esophageal kidney cancer, status post esophagectomy, tumor resection respectively and a history of remote PE around the time of the cancer diagnosis for which he takes Xarelto, though he missed three days prior to admission due to noncompliance. He was in his usual state of health when he had episodes of intermittent slurring of speech, stuttering and waxing and waning strength of his right upper and lower extremities. He presented to the [facility] Emergency Room and was evaluated by the [facility] via Tele- stroke. Initial CT of his head noncontrast demonstrated no evidence for intracranial hemorrhage or CT stigmata of ischemic stroke, there was mild involutional change, and paranasal sinus with suggestion of right maxillary sinusitis. He had a CTA of the head which showed 50 percent right and 15 percent left internal carotid artery stenosis. No large vessel intracranial arterial occlusion or hemodynamically significant stenosis detected on the head angiogram. His NIH score was deemed low and Telestroke did not recommend TPA. He was evaluated by Dr. Friedman later on who recommended continuation of the Xarelto and received a dose of aspirin. The MRI was eventually obtained which demonstrated a small region of acute infarct involving the left basal ganglia and extending into the left malik radiata measuring 2 x 1 cm. There was no hemorrhage. He had a transthoracic echocardiogram which demonstrated an ejection fraction of 50 to 55 percent, no PFO on color Doppler or agitated contrast, trace to mild mitral regurgitation, trace to mild tricuspid regurgitation, trace to mild aortic regurgitation. The patient's course was complicated by stuttering, sometimes quite severe, right- sided hemiparesis, when standing up getting orthostatic hypotensive or postprandial hypotension. He was started eventually on Midodrine 5 mg t.i.d. with improvement in both his pressures and symptoms. He worked with physical therapy and occupational therapy. He still has residual slurred speech, right- sided facial droop, and weakness of the right hand and arm, and currently 5-/5 strength on the right upper extremity and lower extremity. He is being discharged to [facility] for further rehabilitation. His LDL was 51, HDL was 91. He was started on Atorvastatin 20 mg. Given the stuttering course of his hemiparesis, the aspirin was stopped and Dr. Villanueva recommended initiation of Plavix, first with a load of 300mg and then 75 mg daily. He was continued on Xarelto, but the dose was increased to 20 mg from the 15 mg he was on at home. Of note, he did have some noncompliance with that previously. He is recommended to establish care with a primary care provider. He was also given reference to [facility]. He should follow-up with Dr. Friedman or with Dr. Villanueva within three to four weeks. He had a repeat CT of the head on October 21 which showed findings consistent with a left basal ganglia infarction and corresponding to the MRI of October 18 , no evidence of hemorrhage. He was encouraged to resume his former diet of frequent small meals instead of larger meals as the latter seemed to exacerbate his post-prandial hypotension and resultant worsening hemiparesis. DISCHARGE MEDICATIONS: 1. Xarelto 20 mg at night specifically as recommended by Neurology (increased from 15 mg prior), 2. Midodrine 5 mg t.i.d. with meals. 3. Melatonin 3 mg at bedtime prn. 4. Plavix 75 mg q.a.m. specifically as recommended by Neurology. 5. Atorvastatin (Lipitor) 20 mg p.o. at dinner time. Of note: The patient denies that he was recently on Augmentin, though electronic records from the pharmacy indicate that it was prescribed on 2018. FOLLOW-UP: Please follow-up with Dr. Friedman or Dr. Villanueva within three to four weeks of discharge and after [facility] rehabilitative stay. He was given a reference to [facility] to help establish with a primary care provider. Evaluation of his blood pressures should be done in the outpatient setting. His recommended blood pressure goals were between 140s and 180 systolically. Being on both Plavix and Xarelto does put him on increased risk of intracerebral hemorrhage and this was discussed extensively between Neurology , Hospitalist Service, and Mr. Chambers. TIME SPENT ON DISCHARGE: 40 minutes. DISPOSITION: PMRU. CONDITION: Improved. DIET: Heart-healthy. [id number]/[facility] #: [id number] SANDRITA
[2018-10-23] MEDS ORDERED: Rivaroxaban TAB(*) 20 MG TAB PO SCH (17:00)
== END 2018-10-23 11:40 | DRG 65 ==
LOC: ED 12:13 → MEDTELE 16:06 → PMRU 10-23 11:43
PROVIDERS: ADMIT Student in an Organized Health Care Education/Training Program; ATTEND Internal Medicine
DX: I63.81 Other cerebral infarction due to occlusion or stenosis of small artery (principal); G81.91 Hemiplegia, unspecified affecting right dominant side; R47.81 Slurred speech; R29.702 NIHSS score 2; H26.9 Unspecified cataract; F32.9 Major depressive disorder, single episode, unspecified; R29.810 Facial weakness; I95.9 Hypotension, unspecified; I45.10 Unspecified right bundle-branch block; R91.8 Other nonspecific abnormal finding of lung field; I10 Essential (primary) hypertension; R79.89 Other specified abnormal findings of blood chemistry; J32.9 Chronic sinusitis, unspecified; I08.3 Combined rheumatic disorders of mitral, aortic and tricuspid valves; I65.23 Occlusion and stenosis of bilateral carotid arteries; Z88.2 Allergy status to sulfonamides; Z86.711 Personal history of pulmonary embolism; Z85.01 Personal history of malignant neoplasm of esophagus; Z82.49 Family history of ischemic heart disease and other diseases of the circulatory system; Z80.0 Family history of malignant neoplasm of digestive organs; Z72.89 Other problems related to lifestyle; Z85.528 Personal history of other malignant neoplasm of kidney; I95.1 Orthostatic hypotension; F41.9 Anxiety disorder, unspecified; Z79.02 Long term (current) use of antithrombotics/antiplatelets; Z79.01 Long term (current) use of anticoagulants; Z91.14 Patient's other noncompliance with medication regimen; Z86.718 Personal history of other venous thrombosis and embolism
CPT/HCPCS: 36415; 70450; 70496; 70498; 70551; 71045; 80048; 80053; 80061; 81003; 81015; 83036; 83605; 83735; 84100; 84443; 84484; 85025; 85027; 85610; 85730; 86850; 86900; 86901; 87086; 93005; 93306; 99285; A9270-GY; G8978-GP-CM; G8980-GP-CI; G8981-GP-CK; G8982-GP-CK; G8983-GP-CK; G8987-GO-CK; G8988-GO-CI; J0360; J3475; Q9967

== ENCOUNTER 2018-10-23 07:00 | Inpatient (IN) | payer MEDICARE ==
[2018-10-23] MEDS ORDERED: Bisacodyl SUPP* 10 MG SUPP PR PRN (11:10)
[2018-10-23] MEDS ORDERED: Senna TAB PO PRN (11:10)
[2018-10-23] MEDS: CMCS Midodrine (NF) 5 MG TAB PO SCH ×2 (14:48→21:04)
--- NOTE | 2018-10-23 15:45 | HP ---
REHABILITATION ADMISSION: DATE OF ADMISSION: 10/23/18 PRIMARY CARE PROVIDER: None. NEUROLOGY: Dr. Friedman. CHIEF COMPLAINT: Stroke with right hemiplegia. HISTORY OF PRESENT ILLNESS: This is a 68-year-old man with a history of esophageal cancer, status post esophagectomy as well as pulmonary embolism, who has chronically been on Xarelto and has a IVC filter. He admits to some noncompliance of taking his Xarelto a few days prior to developing intermittent slurred speech and right-sided weakness. He was brought to the hospital on and found to have a mildly elevated lactic acid level and low blood pressure. CT of the head was negative. CTA did not show any lesions that would require further intervention at [facility] after consultation with their Stroke Service. He was seen by Dr. Friedman locally and was noted that his deficits would decrease when he was supine. A transthoracic echo showed [id number] LVH and ejection fraction of 50% to 65%. MRI of the brain on 10/18/18 showed a left basal ganglion infarct extending into the left malik radiata. It was noted that his right-sided weakness and dysarthria were very much dependent on his blood pressure. He has some orthostasis and midodrine was added to his regimen. It was then found that his blood pressure would drop after meals as well. Midodrine has helped to minimize these episodes , but they still occur regularly within 5 to 30 minutes after a meal. He recovered after lying in bed for 20 to 30 minutes. Initially, aspirin was added to his Xarelto and as he continued having episodes, he was put on Plavix instead of aspirin. So, he is now on Xarelto and Plavix and has been counseled on the risk of hemorrhage extensively by Neurology and hospitalist. He had a CT of the head on 10/21/18 that showed no new lesions. Prior to admission, he was independent with all mobility and ADLs and not using any assistive devices. With occupational therapy, he has required a min to mod assistance for dressing and toileting, although when he is having hypotensive episodes, he requires a max to mod assistance x2 for toileting. With physical therapy, he has been as good as min to mod assistance x2 for transferring and ambulating up to 14 feet with the rolling walker, but once again with lower blood pressure, he used 2 max assists. With speech, he has been found to have dysarthria. He is tolerating the regular diet. The patient himself recalled as of today that he has experienced a dumping syndrome since his esophagectomy. At home, he has only had some small frequent meals and grazes throughout the day as opposed to having three big meals, which he is what he has been having here and he suspects that has been part of the postprandial hypotensive episodes. This was discussed with Neurology who also feels that this makes sense. ALLERGIES: SULFA. MEDICATIONS: 1. Melatonin 3 mg q.h.s. p.r.n. 2. Atorvastatin 20 mg q.p.m. 3. Plavix 75 mg q.a.m. 4. Xarelto 20 mg q.p.m. 5. Midodrine 5 mg t.i.d. 6. Protonix 40 mg q. day. 7. Trazodone 50 mg q.h.s. p.r.n. insomnia. 8. MiraLAX p.r.n. 9. Tylenol p.r.n. PAST MEDICAL HISTORY: 1. Esophageal cancer, status post esophagectomy with history of dumping syndrome. 2. Kidney cancer, status post resection. 3. Pulmonary embolism perioperatively, normally treated with Xarelto and he has a IVC filter. 4. Left tibia and fibular fracture in April 2018. 5. Cataracts. SOCIAL HISTORY: He lives with his . He has a grown son in the [facility]. He acknowledges drinking 1 beer per day and is involved with Alcoholics Anonymous. He does smoke some marijuana. 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 His home has 1 step to enter and is 1 level. FAMILY HISTORY: Father, esophageal cancer. Mother, lung cancer. REVIEW OF SYSTEMS: See history of present illness and past medical history. The remainder of 13 systems review was completed. No other significant findings. PHYSICAL EXAMINATION GENERAL: Well developed, well nourished, appearing stated age. Mental Status: No acute distress, alert and appropriate. Dysarthria. VITAL SIGNS: Temperature 97.2, pulse 69, respirations 16, oxygen saturation 98 % on room air, blood pressure 157/84. HEENT: Normocephalic, atraumatic. Moist mucous membranes. NECK: Supple, no lymphadenopathy. LUNGS: Clear to auscultation bilaterally. HEART: Regular rate and rhythm. ABDOMEN: Active bowel sounds. Soft, nontender, and nondistended. EXTREMITIES: No clubbing, cyanosis or edema. SKIN: He has a well-healed scar on his head from a skin cyst that was removed. NEUROLOGICAL: He has a right facial droop. Otherwise, cranial nerves II through XII are intact. He has dysarthria. Left upper and lower extremity motor is 5/5 throughout. Right upper extremity motor 4+/5 throughout. Right lower extremity motor 4+/5 throughout. Sensation is intact in all four extremities. Of note, I did observe him also today on the commode with 2/5 motor in his RUE/RLE after breakfast. He recovered to 4+/5 after about 20-30 minutes. DIAGNOSTIC STUDIES/LAB DATA: Labs on 10/19/18, white blood cells 7.6, hemoglobin 14.2, hematocrit 44, platelets 380. Sodium 138, potassium 4, BUN 7, creatinine 0.82, magnesium 1.9. IMPRESSION: A 68-year-old man with left subcortical ischemic stroke and right- sided hemiplegia that fluctuates depending on his blood pressure. He will be admitted to [facility] so he can return to living independently. PLAN: 1. Stroke: In 30 days, his Plavix is supposed to be changed to baby aspirin. 2. His blood pressure is to remain in 140s to 180s range for systolic. Continue with Lipitor. 3. Orthostatic hypotension and postprandial hypotension. Continue his midodrine 5 mg t.i.d. With concerns for dumping syndrome contributing to postprandial hypotension, I have put in a Nutrition consult and have spoken to the registered dietitian about helping to assist with frequent small meals or even grazing to meet his needs. 4. History of pulmonary embolism. Continue with Xarelto. He has IVC filter. 5. DVT prophylaxis, Xarelto. 6. Insomnia. Melatonin and trazodone as needed. 7. Advance Directives. He is a full code. His is his health care proxy if he cannot make decision for himself. ESTIMATED LENGTH OF STAY: Ten to Fourteen days pending evaluation at the Interdisciplinary Plan of Care Conference. [id number]/[facility] #: [id number] SANDRITA
[2018-10-23] MEDS: Rivaroxaban TAB(*) 20 MG TAB PO SCH (17:14)
[2018-10-23] MEDS: Atorvastatin* 20 MG TAB PO SCH (17:14)
[2018-10-23] MEDS: Docusate CAP* 100 MG PO SCH (21:03)
[2018-10-23] MEDS: Melatonin 3 MG TAB PO PRN (21:05)
[2018-10-23] MEDS: traZODone TAB* 50 MG TAB PO PRN (21:05)
[2018-10-24 08:32] LABS: ABS Basophils 0.1 10^3/ul (0-0.2); ABS Eosinophils 0.1 10^3/ul (0-0.6); ABS Lymphocytes 1.6 10^3/ul (1.0-4.8); ABS Nucleated RBC 0 10^3/ul; Eosinophil % 1.7 %; Hematocrit 46 % (36-46); Hemoglobin 14.9 g/dL (14.0-18.0); Mean Corpuscular HGB Conc 33 g/dL (31-36); Mean Corpuscular Hemoglobin 28 pg (27-31); Mean Corpuscular Volume 85 fL (80-94); Mean Platelet Volume 7.2 fL (7.4-10.4); Nucleated Red Blood Cells % 0; Platelet Count 380 10^3/uL (150-450); Red Blood Count 5.34 10^6 /uL (4.18-5.48); Red Cell Distribution Width 17 % (10.5-15); White Blood Count 7.8 10^3/uL (3.5-10.8)
[2018-10-24 08:50] LABS: Albumin 3.8 g/dL (3.2-5.2); Albumin/Globulin Ratio 1.1 (1-3); BUN/Creatinine Ratio 17.6 (8-20); Calcium 9.5 mg/dL (8.6-10.3); EGFR African American 108.5 (>60); EGFR Non-African American 89.6 (>60); Globulin 3.5 g/dL (2-4); Potassium 4.1 mmol/L (3.5-5.0); Total Bilirubin 0.7 mg/dL (0.2-1.0); Total Protein 7.3 g/dL (6.4-8.9)
--- NOTE | 2018-10-24 10:18 | PN ---
Progress Note Date of Service: 10/24/18 Note: ELIZABETH SOLORZANO was visited. Nursing and therapy notes read and reviewed. No chest pain, shortness of breath or abdominal pain. Took both melatonin and trazodone to sleep last night and slept a few hours with the HOB somewhat elevated to make him more comfortable. This morning he feels his right hand is stronger. He was seen by the certified registered locksmith yesterday and plans 5 small meals/snacks. He had a small breakfast and this morning so far has not experienced increased weakness as he had the prior days. Current Medications: Active Medications Generic Name Dose Route Start Last Admin Trade Name Freq PRN Reason Stop Dose Admin Acetaminophen 650 mg 10/23/18 11:10 Tylenol Tab* PO Q6H PRN FEVER > 101 Atorvastatin Calcium 20 mg 10/23/18 17:00 10/23/18 17:14 Lipitor* PO 20 mg 1700 GUIDO Administration Bisacodyl 10 mg 10/23/18 11:10 Dulcolax Supp* [place] DAILY PRN CONSTIPATION Clopidogrel Bisulfate 75 mg 10/24/18 09:00 Plavix Tab* PO DAILY GUIDO Docusate Sodium 100 mg 10/23/18 21:00 10/23/18 21:03 Colace Cap* PO Not Given BID GUIDO Melatonin 3 mg 10/23/18 11:21 10/23/18 21:05 Melatonin PO 3 mg BEDTIME PRN Administration SLEEP Midodrine 5 mg 10/23/18 14:00 10/23/18 21:04 Midodrine (Nf) PO 5 mg TID GUIDO Administration Protocol Pantoprazole Sodium 40 mg 10/24/18 09:00 Protonix Tab* PO DAILY GUIDO Polyethylene Glycol/Electrolytes 17 gm 10/23/18 11:22 Miralax* PO DAILY PRN CONSTIPATION Rivaroxaban 20 mg 10/23/18 17:00 10/23/18 17:14 Xarelto(*) PO 20 mg 1700 GUIDO Administration Senna 2 tab 10/23/18 11:10 Senokot Tab* PO BEDTIME PRN CONSTIPATION Trazodone HCl 50 mg 10/23/18 11:20 10/23/18 21:05 Desyrel Tab* PO 50 mg BEDTIME PRN Administration INSOMNIA Vital Signs: Vital Signs Temp Pulse Resp BP Pulse Ox 97.3 F 64 18 145/79 99 10/24/18 05:11 10/24/18 05:11 10/24/18 05:11 10/24/18 05:11 10/24/18 05:11 Lab Results: Laboratory Results - last 24 hr 10/24/18 10/24/18 08:16 08:16 WBC 7.8 RBC 5.34 Hgb 14.9 Hct 46 MCV 85 MCH 28 MCHC 33 RDW 17 H Plt Count 380 MPV 7.2 L Neut % (Auto) 63.9 Lymph % (Auto) 21.0 [place] % (Auto) 12.4 Eos % (Auto) 1.7 Baso % (Auto) 1.0 Absolute Neuts (auto) 5.0 Absolute Lymphs (auto) 1.6 Absolute Monos (auto) 1.0 H Absolute Eos (auto) 0.1 Absolute Basos (auto) 0.1 Absolute Nucleated RBC 0 Nucleated RBC % 0 Sodium 138 Potassium 4.1 Chloride 105 Carbon Dioxide 25 Anion Gap 8 BUN 15 Creatinine 0.85 Est GFR ( Amer) 108.5 Est GFR (Non-Af Amer) 89.6 BUN/Creatinine Ratio 17.6 Glucose 108 H Calcium 9.5 Total Bilirubin 0.70 AST 23 ALT 14 Alkaline Phosphatase 75 Total Protein 7.3 Albumin 3.8 Globulin 3.5 Albumin/Globulin Ratio 1.1 Exam: GEN: no acute distress. alert and appropriate. dysarthria LUNGS: clear to auscultation bilaterally CV: regular rate and rhythm ABD: + bowel sounds, soft, non-tender, non-distended. EXT: no edema NEURO: Right facial droop. RUE/RLE motor 4+/5 throughout with normal sensation. Assessment/Plan: 68yo man with left basal ganglia small vessel ischemic CVA with stuttering symptoms due to orthostatic and postprandial hypotension secondary to dumping syndrome #CVA: continue PT/OT/speech. On regular diet. Plavix 30 days, then change to baby aspirin. lipitor. Keep SBP 140-180's. #Orthostatic and postprandial hypotension with h/o dumping syndrome after esophagectomy: small frequent meals. Midodrine 5mg tid. Thigh high hose/marichuy wrap legs/abdominal binder. I cautioned him about sleeping upright since he will not know if his BP drops. If BP still an issue consider role of Florinef. #h/o PE and DVT ppx: Xarelto 20mg qday (higher than pre-admit dose) #Insomnia: melatonin and trazodone prn. #Advanced Directives: is hcp. Full code #Estimated LOS: IPOC on Friday. 10/24/18 10:13
[2018-10-24] MEDS: Clopidogrel TAB* 75 MG PO SCH (10:50)
[2018-10-24] MEDS: CMCS Midodrine (NF) 5 MG TAB PO SCH ×3 (10:51→21:36)
[2018-10-24] MEDS: Docusate CAP* 100 MG PO SCH ×2 (10:51→21:35)
[2018-10-24] MEDS: Pantoprazole TAB * 40 MG TAB PO SCH (10:52)
[2018-10-24] MEDS: Rivaroxaban TAB(*) 20 MG TAB PO SCH (16:43)
[2018-10-24] MEDS: Atorvastatin* 20 MG TAB PO SCH (16:43)
[2018-10-24] MEDS: Melatonin 3 MG TAB PO PRN (21:36)
[2018-10-24] MEDS: traZODone TAB* 50 MG TAB PO PRN (23:54)
--- NOTE | 2018-10-25 09:12 | PN ---
Progress Note Date of Service: 10/25/18 Note: ELIZABETH SOLORZANO was visited. Nursing and therapy notes read and reviewed. Yesterday with PT sitting up SBP was as low as 119, but he did not develop an increase in his symptoms and as he remained up his SBP increased to 142. He did not have any episode yesterday of increased hemiplegia. He is taking smaller meals but admits to eating one larger meal later in the day when his brought in [employer] and he felt fine. No chest pain, shortness of breath or abdominal pain. Current Medications: Active Medications Generic Name Dose Route Start Last Admin Trade Name Freq PRN Reason Stop Dose Admin Acetaminophen 650 mg 10/23/18 11:10 Tylenol Tab* PO Q6H PRN FEVER > 101 Atorvastatin Calcium 20 mg 10/23/18 17:00 10/24/18 16:43 Lipitor* PO 20 mg 1700 GUIDO Administration Bisacodyl 10 mg 10/23/18 11:10 Dulcolax Supp* [place] DAILY PRN CONSTIPATION Clopidogrel Bisulfate 75 mg 10/24/18 09:00 10/24/18 10:50 Plavix Tab* PO 75 mg DAILY GIUDO Administration Docusate Sodium 100 mg 10/23/18 21:00 10/24/18 21:35 Colace Cap* PO Not Given BID GUIDO Melatonin 3 mg 10/23/18 11:21 10/24/18 21:36 Melatonin PO 3 mg BEDTIME PRN Administration SLEEP Midodrine 5 mg 10/23/18 14:00 10/24/18 21:36 Midodrine (Nf) PO 5 mg TID GUIDO Administration Protocol Pantoprazole Sodium 40 mg 10/24/18 09:00 10/24/18 10:52 Protonix Tab* PO 40 mg DAILY GUIDO Administration Polyethylene Glycol/Electrolytes 17 gm 10/23/18 11:22 Miralax* PO DAILY PRN CONSTIPATION Rivaroxaban 20 mg 10/23/18 17:00 10/24/18 16:43 Xarelto(*) PO 20 mg 1700 GUIDO Administration Senna 2 tab 10/23/18 11:10 Senokot Tab* PO BEDTIME PRN CONSTIPATION Trazodone HCl 50 mg 10/23/18 11:20 10/24/18 23:54 Desyrel Tab* PO 50 mg BEDTIME PRN Administration INSOMNIA Vital Signs: Vital Signs Temp Pulse Resp BP Pulse Ox 98.1 F 74 18 133/75 100 10/25/18 06:04 10/25/18 06:04 10/25/18 06:04 10/25/18 06:04 10/25/18 06:04 Exam: GEN: no acute distress. alert and appropriate. dysarthria LUNGS: clear to auscultation bilaterally CV: regular rate and rhythm ABD: + bowel sounds, soft, non-tender, non-distended. EXT: no edema NEURO: Right facial droop. RUE/RLE motor 4+/5 throughout with normal sensation. Assessment/Plan: 68yo man with left basal ganglia small vessel ischemic CVA with stuttering symptoms due to orthostatic and postprandial hypotension secondary to dumping syndrome. He appears to be becoming less sensitive to BP shifts as he gets further out from the acute event. We discussed plaque stabilization. #CVA: continue PT/OT/speech. On regular diet. Plavix 30 days, then change to baby aspirin. lipitor. Trying to keep SBP 140-180's, but this may be becoming less important as he gets further out from the acute event. Tomorrow he can try doing ADLs sitting up if he is not symptomatic. #Orthostatic and postprandial hypotension with h/o dumping syndrome after esophagectomy: small frequent meals. Midodrine 5mg tid. Thigh high hose/marichuy wrap legs/abdominal binder. I cautioned him about sleeping upright since he will not know if his BP drops. If BP still an issue consider role of Florinef. #h/o PE and DVT ppx: Xarelto 20mg qday (higher than pre-admit dose) #Insomnia: melatonin and trazodone prn. #Advanced Directives: is hcp. Full code #Estimated LOS: IPOC on Friday. 10/25/18 09:09
[2018-10-25] MEDS: Clopidogrel TAB* 75 MG PO SCH (10:51)
[2018-10-25] MEDS: Pantoprazole TAB * 40 MG TAB PO SCH (10:55)
[2018-10-25] MEDS: CMCS Midodrine (NF) 5 MG TAB PO SCH ×3 (10:56→20:56)
[2018-10-25] MEDS: Docusate CAP* 100 MG PO SCH ×2 (10:56→21:02)
[2018-10-25] MEDS: Rivaroxaban TAB(*) 20 MG TAB PO SCH (16:14)
[2018-10-25] MEDS: Atorvastatin* 20 MG TAB PO SCH (16:14)
[2018-10-25] MEDS: Melatonin 3 MG TAB PO PRN (20:56)
[2018-10-25] MEDS: traZODone TAB* 50 MG TAB PO PRN (20:58)
[2018-10-26] MEDS: Clopidogrel TAB* 75 MG PO SCH (09:01)
[2018-10-26] MEDS: CMCS Midodrine (NF) 5 MG TAB PO SCH (09:01)
[2018-10-26] MEDS: Pantoprazole TAB * 40 MG TAB PO SCH (09:01)
[2018-10-26] MEDS: Docusate CAP* 100 MG PO SCH ×2 (09:01→21:13)
[2018-10-26] MEDS: CMCS: Midodrine (NF) 5 MG TAB PO SCH ×2 (12:30→17:23)
--- NOTE | 2018-10-26 12:43 | PMRUTEAM ---
PMRU: Team Meeting Current Status: Nursing: Current Status Skin Deviations [Right Knee] Abrasion Skin Deviation Description [ - Right Knee] Physical Therapy: Current Status Bed Mobility Assistance Supervision Transfer Mobility Assistance Contact Guard x2 Transfer/Bed Mobility Rolling Walker Recommended Devices Ambulation Assistance Not Tested Ambulation Assistive Devices Rolling Walker Stairs Assistance Not tested Stairs Recommended Devices Two Rails Number of Stairs 5 Occupational Therapy: Current Status Upper Body Dressing Mod Assist Lower Body Dressing Min Assist Bathing Min Assist Toileting Mod Assist Eating Supervision Social Work: Current Status Discharge Plan return home with home care svs and family support Potential for Family Training pt's is involved and supportive Anticipated Discharge Home Destination Discharge With home care svs and family support Speech: Current Status Assessment Progressing as expected Goals: Physical Therapy: Initial Goals Bed Mobility Assistance Independent Transfer Mobility Assistance Independent Transfer/Bed Mobility Rolling Walker Recommended Devices Ambulation Independent Ambulation Recommended Devices Rolling Walker Ambulation Distance 300 Stairs Assistance Independent Stair Recommended Devices Two Rails Number of Stairs 12 Home Exercise Program Independent Assistance Physical Therapy: Updated Goals Transfer/Bed Mobility Rolling Walker Recommended Devices Occupational Therapy: Initial Goals Goals to be Completed in (Days 10-14 days ) Upper Body Bathing Routine Modified Independent with Lower Body Bathing Routine Modified Independent with Upper Body Dressing Routine Independent Lower Body Dressing Routine Independent Toilet Hygeine and Clothing Modified Independent with Management Routine Toilet Transfer Routine Modified Independent with Step-In Shower Transfer Modified Independent with Routine Tub Transfer Routine Modified Independent with Grooming Routine Independent Feeding Routine Independent Nutrition: Goals Intervention Goals 1. pt will tolerate po intake without s/sx dumping syndrome or other adverse GI effects 2. adequate po intake to maintain lean body mass and hydration without add'l wt gain 3. will tolerate least-restrictive diet texture ( ie: regular) without difficulty chewing or swallowing 4. achieve and maintain serum electrolytes levels WNL 5. achieve and maintain regulated bowel pattern without c/o constipation (or diarrhea) Speech: Goals Speech Goal 1 Motor-speech Goal 1 Comments Motor-speech Long-Term Goal: Pt will use compensatory strategies to I'ly speak with 100% intelligibility . Short-Term Goal 1: Pt will use compensatory strategies to control speech prosody (rate, stress , intonation) and sequencing (clusters, multisyllabic words) to reduce cluttering and increase speech intelligibility to 95% in structured conversation and speech activities, given Moderate cueing. Short-Term Goal 2: Pt will use compensatory articulation strategies to correct resonance and accurate articulation (nasals, labial fricatives, liquids), to increase speech intelligibility to 95 % in structured conversation and speech activities , given Moderate cueing. Status: Progressing. Pt exhibits carryover knowledge of speaking strategies to increase intelligibility. Pt utilized speaking strategies ( slow rate, over articulation, stress) during structured conversational tasks and during a 5-7 word sentence task requiring verbal cues about 50% of the time. Pt 90% intelligible while reading 5- 7 word sentences with use of strategies and about 80% intelligible during structured conversational tasks. Pt required cues to over-articulation words beginning with bilabials and fricatives. Social Work: Goals Discharge Plan return home with home care svs and family support Potential for Family Training pt's is involved and supportive Anticipated Discharge Home Destination Discharge With home care svs and family support Care Plan: Care Plan Cardiovascular- Improve/Maintain Start: 10/23/18 12:53 Freq: QSHIFT Status: Active Target: Protocol: Activity Type Activity Date Activity User E-Sign Co-Sign Detail Recorded Client Recorded Date Recorded By Document 10/26/18 10:30 [id number] 10/26/18 10:31 [id number] 10/26/18 10:30 PMRU Outcome: Cardiovascular Vital Signs q Shift for 48hrs Then BID Yes Daily Weight Ordered No Current Cardiovascular Outcome/Goal Maintain/ Achieve Baseline HR, BP , Perfusion Maintain/ Improve Perfusion Maintain/ Achieve Hemodynamic Stability Free of Abnormal Cardiac Symptoms Progression Toward Outcome/Goal Progressing Communication-Improve/Maintain Start: 10/23/18 12:53 Freq: DAILY Status: Active Target: Protocol: Activity Type Activity Date Activity User E-Sign Co-Sign Detail Recorded Client Recorded Date Recorded By Document 10/26/18 01:00 [id number] [id number] 10/26/18 03:10 [id number] 10/26/18 01:00 PMRU Outcome: Communication/Cognitive Status Outcome/Goals Makes Needs Known Effectively Progression Toward Outcomes/Goals Progressing Coping/Psych-Improve/Maintain Start: 10/23/18 12:53 Freq: QSHIFT Status: Active Target: Protocol: Activity Type Activity Date Activity User E-Sign Co-Sign Detail Recorded Client Recorded Date Recorded By Document 10/26/18 10:30 [id number] 10/26/18 10:31 [id number] 10/26/18 10:30 PMRU Outcome: Coping/Psychosocial Coping Outcome/Goals Verbalization of Acceptance of Rehab Admit Verbalization of Sense of Control Over Health Status Utilization of Appropriate Problem Solving Techniques Willingness to Participate in Treatment Plan and Basic Needs Utilization of Available Support Systems Psychosocial Outcome/Goals Demonstrates Knowledge of Healthy Coping Mechanisms Available Cooperate/ Participate in Plan Progression Toward Outcome/Goals - Progressing Coping Progression Toward Outcome/Goals - Progressing Psychosocial DVT Prophylaxis- Improve/Maintain Start: 10/23/18 12:53 Freq: QSHIFT Status: Active Target: Protocol: Activity Type Activity Date Activity User E-Sign Co-Sign Detail Recorded Client Recorded Date Recorded By Document 10/26/18 10:30 [id number] 10/26/18 10:31 [id number] 10/26/18 10:30 PMRU Outcome: DVT Prophylaxis Outcome/Goals Remains Free of DVT Complies with DVT Prophylaxis /Treatment Demonstrates Knowledge of DVT Prevention/ Treatment TEDS Stockings on Every AM, Off at HS Progression Toward Outcome/Goals Progressing Discharge Planning - Improve/Maintain Start: 10/23/18 12:53 Freq: DAILY Status: Active Target: Protocol: Activity Type Activity Date Activity User E-Sign Co-Sign Detail Recorded Client Recorded Date Recorded By Document 10/26/18 01:00 [id number] 10/26/18 03:10 [id number] 10/26/18 01:00 PMRU Outcome: Discharge Planning Update Patient Family No Outcome/Goals Demonstrates Understanding of Discharge Plan Education-Improve/Maintain Start: 10/23/18 12:53 Freq: QSHIFT Status: Active Target: Protocol: Activity Type Activity Date Activity User E-Sign Co-Sign Detail Recorded Client Recorded Date Recorded By Document 10/26/18 10:30 [id number] 10/26/18 10:31 [id number] 10/26/18 10:30 PMRU Outcome: Education Outcome/Goals Demonstrates Skills Encourage Questions Progression Toward Outcome/Goals Progressing Medication Administration Start: 10/23/18 12:53 Freq: QSHIFT Status: Active Target: Protocol: Activity Type Activity Date Activity User E-Sign Co-Sign Detail Recorded Client Recorded Date Recorded By Document 10/26/18 10:30 [id number] [id number] 10/26/18 10:31 [id number] 10/26/18 10:30 PMRU Outcome: Medication Administration Assess Patient Knowledge/Teach Med Yes Education for all Meds Outcome/Goals Patient Independent with Medication Administration at Home Demonstrates Understanding Progression Towards Outcome/Goals Progressing Is Patient Going Home on Lovenox? No Neurological- Improve/Maintain Start: 10/23/18 12:53 Freq: QSHIFT Status: Active Target: Protocol: Activity Type Activity Date Activity User E-Sign Co-Sign Detail Recorded Client Recorded Date Recorded By Document 10/26/18 10:30 [id number] 10/26/18 10:31 [id number] 10/26/18 10:30 PMRU Outcome: Neurological Weakness/Aphasia Weakness Right Side Outcome/Goals Improve Neurological Status Prevent Avoidable Neurological Decline Demonstrate Knowledge of Prevention/Tx of Neuro Disorders/ Complication Maintain/ Improve Strength/ROM Progression Toward Outcome/Goals Progressing Nutrition/Swallowing- Improve/Maintain Start: 10/23/18 12:53 Freq: QSHIFT Status: Active Target: Protocol: Activity Type Activity Date Activity User E-Sign Co-Sign Detail Recorded Client Recorded Date Recorded By Document 10/26/18 10:30 [id number] 10/26/18 10:31 [id number] 10/26/18 10:30 PMRU Outcome: Nutrition/Swallowing Outcome/Goals Demonstrates Adequate Hydration/ Prevents Dehydration Maintain/ Improve Nutritional Status Progression Toward Outcome/Goals Progressing Safety- Improve/Maintain Start: 10/23/18 12:53 Freq: QSHIFT Status: Active Target: Protocol: Activity Type Activity Date Activity User E-Sign Co-Sign Detail Recorded Client Recorded Date Recorded By Document 10/26/18 10:30 [id number] 10/26/18 10:31 [id number] 10/26/18 10:30 PMRU Outcome: Safety Outcome/Goals Remain Free of Injury or Harm Cooperates with Safety Measures for Least Restrictive Environment Prevent Falls/ Injury Progression Toward Outcome/Goals Progressing Medicine Note: Length of Stay: 15 days Anticipated Discharge Destination: Home Tentative Discharge Date: November 10, 2018 Discharged to: Home
[2018-10-26] MEDS: Rivaroxaban TAB(*) 20 MG TAB PO SCH (17:23)
[2018-10-26] MEDS: Atorvastatin* 20 MG TAB PO SCH (17:23)
--- NOTE | 2018-10-26 17:55 | PN ---
Progress Note Date of Service: 10/26/18 Note: ELIZABETH SOLORZANO was visited. Therapy notes read and reviewed. He was discussed in interdisciplinary plan of care rounds. He seems to have no complaints. While working with OT he had some transient weakness in the right hand that got better after lying supine. Current Medications: Active Medications Generic Name Dose Route Start Last Admin Trade Name Freq PRN Reason Stop Dose Admin Acetaminophen 650 mg 10/23/18 11:10 Tylenol Tab* PO Q6H PRN FEVER > 101 Atorvastatin Calcium 20 mg 10/23/18 17:00 10/26/18 17:23 Lipitor* PO 20 mg 1700 GUIDO Administration Bisacodyl 10 mg 10/23/18 11:10 Dulcolax Supp* [place] DAILY PRN CONSTIPATION Clopidogrel Bisulfate 75 mg 10/24/18 09:00 10/26/18 09:01 Plavix Tab* PO 75 mg DAILY GUIDO Administration Docusate Sodium 100 mg 10/23/18 21:00 10/26/18 09:01 Colace Cap* PO Not Given BID GUIDO Melatonin 3 mg 10/23/18 11:21 10/25/18 20:56 Melatonin PO 3 mg BEDTIME PRN Administration SLEEP Midodrine 5 mg 10/26/18 12:00 10/26/18 17:23 Midodrine (Nf) PO 5 mg 0700,1200,1700 GUIDO Administration Protocol Pantoprazole Sodium 40 mg 10/24/18 09:00 10/26/18 09:01 Protonix Tab* PO 40 mg DAILY GUIDO Administration Polyethylene Glycol/Electrolytes 17 gm 10/23/18 11:22 Miralax* PO DAILY PRN CONSTIPATION Rivaroxaban 20 mg 10/23/18 17:00 10/26/18 17:23 Xarelto(*) PO 20 mg 1700 GUIDO Administration Senna 2 tab 10/23/18 11:10 Senokot Tab* PO BEDTIME PRN CONSTIPATION Trazodone HCl 50 mg 10/23/18 11:20 10/25/18 20:58 Desyrel Tab* PO 50 mg BEDTIME PRN Administration INSOMNIA Vital Signs: Vital Signs Temp Pulse Resp BP Pulse Ox 98.2 F 79 18 141/70 99 10/26/18 16:03 10/26/18 16:03 10/26/18 16:03 10/26/18 16:03 10/26/18 16:03 Exam: GENERAL: no acute distress. alert and appropriate. dysarthria LUNGS: clear to auscultation bilaterally HEART: regular rate and rhythm ABDOMEN: + bowel sounds, soft, non-tender, non-distended. EXTREMITIES: no edema NEUROLOGIC: Right facial droop. RUE/RLE motor 4+/5 throughout with normal sensation. 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 Left CVA: PT/OT/COMPTOMETRIST. On regular diet. 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 Lipitor. Trying to keep SBP 140-180's, but this may be becoming less important as he gets further out from the acute event. . 2. 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 Midodrine 5mg tid. Thigh high hose/marichuy wrap legs/abdominal binder. Had trouble tolerating binder. If BP still an issue consider role of Florinef. 3. h/o PE and DVT ppx: Xarelto 20mg qday (higher than pre-admit dose) 4. Insomnia: melatonin and trazodone prn. 5. Advanced Directives: is hcp. Full code 10/26/18 17:56
[2018-10-26] MEDS: Melatonin 3 MG TAB PO PRN (21:06)
[2018-10-26] MEDS: traZODone TAB* 50 MG TAB PO PRN (22:22)
[2018-10-27] MEDS: Acetaminophen TAB* 325 MG PO PRN (00:10)
[2018-10-27] MEDS: CMCS: Midodrine (NF) 5 MG TAB PO SCH ×3 (05:19→16:39)
[2018-10-27] MEDS: Docusate CAP* 100 MG PO SCH ×2 (08:42→21:32)
[2018-10-27] MEDS: Pantoprazole TAB * 40 MG TAB PO SCH (08:42)
[2018-10-27] MEDS: Clopidogrel TAB* 75 MG PO SCH (08:42)
--- NOTE | 2018-10-27 12:37 | PMRUTEAM ---
PMRU: Team Meeting Current Status: Nursing: Current Status Skin Deviations [Right Knee] Abrasion Skin Deviation Description [ healing, scabbed Right Knee] Drain Type [Right Knee] None Bladder Current Status uses urinal independently no episodes of incontinence Bowel Current Status uses bedside commode with set-up last bowel mvmt 10/26 receives bowel medications as needed Nutrition Current Status good appetite pt ingests small amts independently s/p hx dumping syndrome Medication Current Status pt takes all medications as prescribed Pt verbalizes understanding of interventions Physical Therapy: Current Status Bed Mobility Assistance Independent Transfer Mobility Assistance Independent Transfer/Bed Mobility Rolling Walker Recommended Devices Ambulation Assistance Independent Ambulation Assistive Devices Rolling Walker Stairs Assistance Supervision Stairs Recommended Devices Two Rails Number of Stairs 5 Occupational Therapy: Current Status Upper Body Dressing Supervision Lower Body Dressing Min Assist Bathing Min Assist Toileting Contact Guard Assist,Min Assist Toilet Transfer Contact Guard Assist,2 Person Assist Shower Transfer Contact Guard Assist Eating Supervision Rec Therapy: Current Status Summary of Assessment and Recreation Therapy services introduced and Clinical Impression assessment is complete. Pt. has been very social and interactive during leisure visits. Treatment Goals Pt. will engage in leisure activities while on the unit. Treatment Plan Provide recreation therapy and encourage involvement. Social Work: Current Status Discharge Plan return home with home care svs and family support Potential for Family Training pt's is involved and supportive Anticipated Discharge Home Destination Discharge With home care svs and family support Nutrition: Current Status Monitoring Pt with hx esophageal cancer s/p esophagectomy. Generally consumes small, frequent meals per H&P. PO intake good: eating a minimum of 50% of meals, with intake 90 to 100% of most meals. No evidence difficulty chewing/swallowing per nursing assessments. BMP unremarkable 10/26. Daily BMs noted ; on bowel regimen. Full nutrition assessment to follow per protocol. Speech: Current Status Assessment Progressing as expected Goals: Physical Therapy: Initial Goals Bed Mobility Assistance Independent Transfer Mobility Assistance Independent Transfer/Bed Mobility Rolling Walker Recommended Devices Ambulation Independent Ambulation Recommended Devices Rolling Walker Ambulation Distance 300 Stairs Assistance Independent Stair Recommended Devices Two Rails Number of Stairs 12 Home Exercise Program Independent Assistance Physical Therapy: Updated Goals Transfer/Bed Mobility Rolling Walker Recommended Devices Occupational Therapy: Initial Goals Goals to be Completed in (Days 10-14 days ) Upper Body Bathing Routine Modified Independent with Lower Body Bathing Routine Modified Independent with Upper Body Dressing Routine Independent Lower Body Dressing Routine Independent Toilet Hygeine and Clothing Modified Independent with Management Routine Toilet Transfer Routine Modified Independent with Step-In Shower Transfer Modified Independent with Routine Tub Transfer Routine Modified Independent with Grooming Routine Independent Feeding Routine Independent Nursing: Goals Bladder Goal independent use of urinal remain continent Bowel Goal prevent constipation maintain regular schedule Nutrition Goal maintain adequate intake prevent dumping syndrome Medication Goal independent medication management Nutrition: Goals Intervention Goals 1. pt will tolerate po intake without s/sx dumping syndrome or other adverse GI effects 2. adequate po intake to maintain lean body mass and hydration without add'l wt gain 3. will tolerate least-restrictive diet texture ( ie: regular) without difficulty chewing or swallowing 4. achieve and maintain serum electrolytes levels WNL 5. achieve and maintain regulated bowel pattern without c/o constipation (or diarrhea) Speech: Goals Speech Goal 1 Motor-speech Goal 1 Comments Motor-speech Long-Term Goal: Pt will use compensatory strategies to I'ly speak with 100% intelligibility . Short-Term Goal 1: Pt will use compensatory strategies to control speech prosody (rate, stress , intonation) and sequencing (clusters, multisyllabic words) to reduce cluttering and increase speech intelligibility to 95% in structured conversation and speech activities, given Moderate cueing. Short-Term Goal 2: Pt will use compensatory articulation strategies to correct resonance and accurate articulation (nasals, labial fricatives, liquids), to increase speech intelligibility to 95 % in structured conversation and speech activities , given Moderate cueing. Status: Progressing. Pt exhibits carryover knowledge of speaking strategies to increase intelligibility. Pt utilized speaking strategies ( slow rate, over articulation, stress) during structured conversational tasks and during a 5-7 word sentence task requiring verbal cues about 50% of the time. Pt 90% intelligible while reading 5- 7 word sentences with use of strategies and about 80% intelligible during structured conversational tasks. Pt required cues to over-articulation words beginning with bilabials and fricatives. Social Work: Goals Discharge Plan return home with home care svs and family support Potential for Family Training pt's is involved and supportive Anticipated Discharge Home Destination Discharge With home care svs and family support Care Plan: Care Plan Cardiovascular- Improve/Maintain Start: 10/23/18 12:53 Freq: QSHIFT Status: Active Target: Protocol: Activity Type Activity Date Activity User E-Sign Co-Sign Detail Recorded Client Recorded Date Recorded By Document 10/27/18 02:09 [id number] [email or web address] 10/27/18 02:09 [id number] 10/27/18 02:09 PMRU Outcome: Cardiovascular Vital Signs q Shift for 48hrs Then BID Yes Daily Weight Ordered No Current Cardiovascular Outcome/Goal Maintain/ Achieve Baseline HR, BP , Perfusion Maintain/ Improve Perfusion Maintain/ Achieve Hemodynamic Stability Free of Abnormal Cardiac Symptoms Progression Toward Outcome/Goal Progressing Communication-Improve/Maintain Start: 10/23/18 12:53 Freq: DAILY Status: Active Target: Protocol: Activity Type Activity Date Activity User E-Sign Co-Sign Detail Recorded Client Recorded Date Recorded By Document 10/27/18 02:09 [id number] [id number] 10/27/18 02:09 [id number] 10/27/18 02:09 PMRU Outcome: Communication/Cognitive Status Outcome/Goals Makes Needs Known Effectively Progression Toward Outcomes/Goals Progressing Coping/Psych-Improve/Maintain Start: 10/23/18 12:53 Freq: QSHIFT Status: Active Target: Protocol: Activity Type Activity Date Activity User E-Sign Co-Sign Detail Recorded Client Recorded Date Recorded By Document 10/27/18 02:09 [id number] [email or web address] 10/27/18 02:09 [id number] 10/27/18 02:09 PMRU Outcome: Coping/Psychosocial Coping Outcome/Goals Verbalization of Acceptance of Rehab Admit Verbalization of Sense of Control Over Health Status Utilization of Appropriate Problem Solving Techniques Willingness to Participate in Treatment Plan and Basic Needs Utilization of Available Support Systems Psychosocial Outcome/Goals Demonstrates Knowledge of Healthy Coping Mechanisms Available Cooperate/ Participate in Plan Progression Toward Outcome/Goals - Progressing Coping Progression Toward Outcome/Goals - Progressing Psychosocial DVT Prophylaxis- Improve/Maintain Start: 10/23/18 12:53 Freq: QSHIFT Status: Active Target: Protocol: Activity Type Activity Date Activity User E-Sign Co-Sign Detail Recorded Client Recorded Date Recorded By Document 10/27/18 02:09 [id number] [email or web address] 10/27/18 02:09 [id number] 10/27/18 02:09 PMRU Outcome: DVT Prophylaxis Outcome/Goals Remains Free of DVT Complies with DVT Prophylaxis /Treatment Demonstrates Knowledge of DVT Prevention/ Treatment TEDS Stockings on Every AM, Off at HS Progression Toward Outcome/Goals Progressing Discharge Planning - Improve/Maintain Start: 10/23/18 12:53 Freq: DAILY Status: Active Target: Protocol: Activity Type Activity Date Activity User E-Sign Co-Sign Detail Recorded Client Recorded Date Recorded By Document 10/27/18 02:09 [id number] [email or web address] 10/27/18 02:09 [id number] 10/27/18 02:09 PMRU Outcome: Discharge Planning Update Patient Family No Outcome/Goals Demonstrates Understanding of Discharge Plan Progression Toward Outcome/Goals Progressing Education-Improve/Maintain Start: 10/23/18 12:53 Freq: QSHIFT Status: Active Target: Protocol: Activity Type Activity Date Activity User E-Sign Co-Sign Detail Recorded Client Recorded Date Recorded By Document 10/27/18 02:09 [id number] [email or web address] 10/27/18 02:09 [id number] 10/27/18 02:09 PMRU Outcome: Education Outcome/Goals Demonstrates Skills Encourage Questions Progression Toward Outcome/Goals Progressing Medication Administration Start: 10/23/18 12:53 Freq: QSHIFT Status: Active Target: Protocol: Activity Type Activity Date Activity User E-Sign Co-Sign Detail Recorded Client Recorded Date Recorded By Document 10/27/18 02:09 [id number] [email or web address] 10/27/18 02:09 [id number] 10/27/18 02:09 PMRU Outcome: Medication Administration Assess Patient Knowledge/Teach Med Yes Education for all Meds Outcome/Goals Patient Independent with Medication Administration at Home Demonstrates Understanding Progression Towards Outcome/Goals Progressing Is Patient Going Home on Lovenox? No Neurological- Improve/Maintain Start: 10/23/18 12:53 Freq: QSHIFT Status: Active Target: Protocol: Activity Type Activity Date Activity User E-Sign Co-Sign Detail Recorded Client Recorded Date Recorded By Document 10/27/18 02:09 [id number] [email or web address] 10/27/18 02:09 [id number] 10/27/18 02:09 PMRU Outcome: Neurological Weakness/Aphasia Weakness Right Side Outcome/Goals Improve Neurological Status Prevent Avoidable Neurological Decline Demonstrate Knowledge of Prevention/Tx of Neuro Disorders/ Complication Maintain/ Improve Strength/ROM Progression Toward Outcome/Goals Progressing Nutrition/Swallowing- Improve/Maintain Start: 10/23/18 12:53 Freq: QSHIFT Status: Active Target: Protocol: Activity Type Activity Date Activity User E-Sign Co-Sign Detail Recorded Client Recorded Date Recorded By Document 10/27/18 02:09 [id number] [email or web address] 10/27/18 02:09 [id number] 10/27/18 02:09 PMRU Outcome: Nutrition/Swallowing Outcome/Goals Demonstrates Adequate Hydration/ Prevents Dehydration Maintain/ Improve Nutritional Status Progression Toward Outcome/Goals Progressing Safety- Improve/Maintain Start: 10/23/18 12:53 Freq: QSHIFT Status: Active Target: Protocol: Activity Type Activity Date Activity User E-Sign Co-Sign Detail Recorded Client Recorded Date Recorded By Document 10/27/18 02:09 [id number] [email or web address] 10/27/18 02:09 [id number] 10/27/18 02:09 PMRU Outcome: Safety Outcome/Goals Remain Free of Injury or Harm Cooperates with Safety Measures for Least Restrictive Environment Prevent Falls/ Injury Progression Toward Outcome/Goals Progressing Outcome/Goals Met Comment BA armed Medicine Note: Length of Stay: 15 days Anticipated Discharge Destination: Home Tentative Discharge Date: 11/11/18 Discharged to: Home
[2018-10-27] MEDS: Atorvastatin* 20 MG TAB PO SCH (16:39)
[2018-10-27] MEDS: Rivaroxaban TAB(*) 20 MG TAB PO SCH (16:39)
--- NOTE | 2018-10-27 17:32 | PN ---
Progress Note Date of Service: 10/27/18 Note: ELIZABETH SOLORZANO was visited. Therapy notes read and reviewed. He was discussed in interdisciplinary team rounds. He is making gains but had an episode of low BP and increased weakness that resolved with rest Current Medications: Active Medications Generic Name Dose Route Start Last Admin Trade Name Freq PRN Reason Stop Dose Admin Acetaminophen 650 mg 10/23/18 11:10 10/27/18 00:10 Tylenol Tab* PO 650 mg Q6H PRN Administration FEVER > 101 Atorvastatin Calcium 20 mg 10/23/18 17:00 10/27/18 16:39 Lipitor* PO 20 mg 1700 GUIDO Administration Bisacodyl 10 mg 10/23/18 11:10 Dulcolax Supp* DE DAILY PRN CONSTIPATION Clopidogrel Bisulfate 75 mg 10/24/18 09:00 10/27/18 08:42 Plavix Tab* PO 75 mg DAILY GUIDO Administration Docusate Sodium 100 mg 10/23/18 21:00 10/27/18 08:42 Colace Cap* PO 100 mg BID GUIDO Administration Melatonin 3 mg 10/23/18 11:21 10/26/18 21:06 Melatonin PO 3 mg BEDTIME PRN Administration SLEEP Midodrine 5 mg 10/26/18 12:00 10/27/18 16:39 Midodrine (Nf) PO 5 mg 0700,1200,1700 GUIDO Administration Protocol Pantoprazole Sodium 40 mg 10/24/18 09:00 10/27/18 08:42 Protonix Tab* PO 40 mg DAILY GUIDO Administration Polyethylene Glycol/Electrolytes 17 gm 10/23/18 11:22 Miralax* PO DAILY PRN CONSTIPATION Rivaroxaban 20 mg 10/23/18 17:00 10/27/18 16:39 Xarelto(*) PO 20 mg 1700 GUIDO Administration Senna 2 tab 10/23/18 11:10 Senokot Tab* PO BEDTIME PRN CONSTIPATION Trazodone HCl 50 mg 10/23/18 11:20 10/26/18 22:22 Desyrel Tab* PO 50 mg BEDTIME PRN Administration INSOMNIA Vital Signs: Vital Signs Temp Pulse Resp BP Pulse Ox 98.0 F 67 18 152/74 100 10/27/18 08:43 10/27/18 16:03 10/27/18 08:43 10/27/18 16:03 10/27/18 16:03 Exam: GENERAL: no acute distress. alert and appropriate. dysarthria LUNGS: clear to auscultation bilaterally HEART: regular rate and rhythm ABDOMEN: + bowel sounds, soft, non-tender, non-distended. EXTREMITIES: no edema NEUROLOGIC: Right facial droop. RUE/RLE motor 4+/5 throughout with normal sensation. 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 On regular diet. 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 Lipitor. Try to keep SBP 140-180's 2. 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 Midodrine 5mg tid. Thigh high hose/marichuy wrap legs/abdominal binder. Had trouble tolerating binder. If BP still an issue consider role of Florinef. 3. h/o PE and DVT ppx: Xarelto 20mg qday (higher than pre-admit dose) 4. Insomnia: melatonin and trazodone prn. 5. Advanced Directives: is hcp. Full code 10/27/18 17:33
[2018-10-27] MEDS: Melatonin 3 MG TAB PO PRN (21:18)
[2018-10-27] MEDS: traZODone TAB* 50 MG TAB PO PRN (22:39)
[2018-10-28] MEDS: Acetaminophen TAB* 325 MG PO PRN (01:35)
[2018-10-28] MEDS: CMCS: Midodrine (NF) 5 MG TAB PO SCH ×3 (06:36→17:09)
[2018-10-28 07:09] LABS: ABS Basophils 0.1 10^3/ul (0-0.2); ABS Eosinophils 0.2 10^3/ul (0-0.6); ABS Lymphocytes 1.7 10^3/ul (1.0-4.8); ABS Neutrophils 3.9 10^3/ul (1.5-7.7); ABS Nucleated RBC 0 10^3/ul; Eosinophil % 2.3 %; Hematocrit 44 % (36-46); Hemoglobin 14.3 g/dL (14.0-18.0); Lymphocyte % 24.6 %; Mean Corpuscular HGB Conc 32 g/dL (31-36); Mean Corpuscular Hemoglobin 28 pg (27-31); Mean Corpuscular Volume 86 fL (80-94); Mean Platelet Volume 7.3 fL (7.4-10.4); Nucleated Red Blood Cells % 0.1; Platelet Count 399 10^3/uL (150-450); Red Blood Count 5.16 10^6 /uL (4.18-5.48); Red Cell Distribution Width 17 % (10.5-15); White Blood Count 6.9 10^3/uL (3.5-10.8)
[2018-10-28 07:21] LABS: Albumin 3.9 g/dL (3.2-5.2); Albumin/Globulin Ratio 1.2 (1-3); Calcium 9.6 mg/dL (8.6-10.3); EGFR African American 105.6 (>60); EGFR Non-African American 87.3 (>60); Globulin 3.3 g/dL (2-4); Potassium 4.4 mmol/L (3.5-5.0); Total Bilirubin 0.6 mg/dL (0.2-1.0); Total Protein 7.2 g/dL (6.4-8.9)
[2018-10-28] MEDS: Pantoprazole TAB * 40 MG TAB PO SCH (08:36)
[2018-10-28] MEDS: Clopidogrel TAB* 75 MG PO SCH (08:36)
[2018-10-28] MEDS: Docusate CAP* 100 MG PO SCH ×2 (08:37→20:51)
[2018-10-28] MEDS: Atorvastatin* 20 MG TAB PO SCH (17:09)
[2018-10-28] MEDS: Rivaroxaban TAB(*) 20 MG TAB PO SCH (17:09)
--- NOTE | 2018-10-28 17:43 | PN ---
Progress Note Date of Service: 10/28/18 Note: ELIZABETH SOLORZANO was visited. Therapy notes read and reviewed. Had a very fine day in therapy today. No episodes and feels good overall. Remains dysarthric Current Medications: Active Medications Generic Name Dose Route Start Last Admin Trade Name Freq PRN Reason Stop Dose Admin Acetaminophen 650 mg 10/23/18 11:10 10/28/18 01:35 Tylenol Tab* PO 650 mg Q6H PRN Administration FEVER > 101 Atorvastatin Calcium 20 mg 10/23/18 17:00 10/28/18 17:09 Lipitor* PO 20 mg 1700 GIUDO Administration Bisacodyl 10 mg 10/23/18 11:10 Dulcolax Supp* [place] DAILY PRN CONSTIPATION Clopidogrel Bisulfate 75 mg 10/24/18 09:00 10/28/18 08:36 Plavix Tab* PO 75 mg DAILY GUIDO Administration Docusate Sodium 100 mg 10/23/18 21:00 10/28/18 08:37 Colace Cap* PO Not Given BID GUIDO Melatonin 3 mg 10/23/18 11:21 10/27/18 21:18 Melatonin PO 3 mg BEDTIME PRN Administration SLEEP Midodrine 5 mg 10/26/18 12:00 10/28/18 17:09 Midodrine (Nf) PO 5 mg 0700,1200,1700 GUIDO Administration Protocol Pantoprazole Sodium 40 mg 10/24/18 09:00 10/28/18 08:36 Protonix Tab* PO 40 mg DAILY GUIDO Administration Polyethylene Glycol/Electrolytes 17 gm 10/23/18 11:22 Miralax* PO DAILY PRN CONSTIPATION Rivaroxaban 20 mg 10/23/18 17:00 10/28/18 17:09 Xarelto(*) PO 20 mg 1700 GUIDO Administration Senna 2 tab 10/23/18 11:10 Senokot Tab* PO BEDTIME PRN CONSTIPATION Trazodone HCl 50 mg 10/23/18 11:20 10/27/18 22:39 Desyrel Tab* PO 50 mg BEDTIME PRN Administration INSOMNIA Vital Signs: Vital Signs Temp Pulse Resp BP Pulse Ox 97.7 F 69 24 160/80 100 10/28/18 15:59 10/28/18 15:59 10/28/18 15:59 10/28/18 15:59 10/28/18 15:59 Lab Results: Laboratory Results - last 24 hr 10/28/18 10/28/18 06:42 06:42 WBC 6.9 RBC 5.16 Hgb 14.3 Hct 44 MCV 86 MCH 28 MCHC 32 RDW 17 H Plt Count 399 MPV 7.3 L Neut % (Auto) 57.5 Lymph % (Auto) 24.6 Gulf % (Auto) 14.2 Eos % (Auto) 2.3 Baso % (Auto) 1.4 Absolute Neuts (auto) 3.9 Absolute Lymphs (auto) 1.7 Absolute Monos (auto) 1.0 H Absolute Eos (auto) 0.2 Absolute Basos (auto) 0.1 Absolute Nucleated RBC 0 Nucleated RBC % 0.1 Sodium 137 Potassium 4.4 Chloride 104 Carbon Dioxide 27 Anion Gap 6 BUN 20 Creatinine 0.87 Est GFR ( Amer) 105.6 Est GFR (Non-Af Amer) 87.3 BUN/Creatinine Ratio 23.0 H Glucose 87 Calcium 9.6 Total Bilirubin 0.60 AST 27 ALT 22 Alkaline Phosphatase 76 Total Protein 7.2 Albumin 3.9 Globulin 3.3 Albumin/Globulin Ratio 1.2 Exam: GENERAL: no acute distress. alert and appropriate. Dysarthria LUNGS: clear to auscultation bilaterally HEART: regular rate and rhythm ABDOMEN: + bowel sounds, soft, non-tender, non-distended. EXTREMITIES: no edema NEUROLOGIC: Right facial droop. RUE/RLE motor 4+/5 throughout with normal sensation. 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 Lipitor. Try to keep SBP 140-180's. Regular diet. 2. 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 Midodrine 5mg tid. Thigh high hose/marichuy wrap legs/abdominal binder. Had trouble tolerating binder. If BP still an issue consider role of Florinef. 3. History of PE and DVT prophylaxis: Xarelto 20mg qday 4. Insomnia: melatonin and trazodone prn. 5. Advanced Directives: is hcp. Full code 10/28/18 17:44
[2018-10-28] MEDS: Melatonin 3 MG TAB PO PRN (20:55)
[2018-10-28] MEDS: traZODone TAB* 50 MG TAB PO PRN (22:46)
[2018-10-29] MEDS: Acetaminophen TAB* 325 MG PO PRN ×2 (01:06→21:49)
[2018-10-29] MEDS: CMCS: Midodrine (NF) 5 MG TAB PO SCH ×3 (06:20→17:20)
[2018-10-29] MEDS: Pantoprazole TAB * 40 MG TAB PO SCH (08:30)
[2018-10-29] MEDS: Clopidogrel TAB* 75 MG PO SCH (08:30)
[2018-10-29] MEDS: Docusate CAP* 100 MG PO SCH ×2 (08:31→20:55)
[2018-10-29] MEDS: Atorvastatin* 20 MG TAB PO SCH (17:20)
[2018-10-29] MEDS: Rivaroxaban TAB(*) 20 MG TAB PO SCH (17:20)
--- NOTE | 2018-10-29 18:32 | PN ---
Progress Note Date of Service: 10/29/18 Note: ELIZABETH SOLORZANO was visited. Therapy notes read and reviewed. He had very little hypotension related weakness today and his BP seemed stable with therapy Current Medications: Active Medications Generic Name Dose Route Start Last Admin Trade Name Freq PRN Reason Stop Dose Admin Acetaminophen 650 mg 10/23/18 11:10 10/29/18 01:06 Tylenol Tab* PO 650 mg Q6H PRN Administration FEVER > 101 Atorvastatin Calcium 20 mg 10/23/18 17:00 10/29/18 17:20 Lipitor* PO 20 mg 1700 GUIDO Administration Bisacodyl 10 mg 10/23/18 11:10 Dulcolax Supp* [place] DAILY PRN CONSTIPATION Clopidogrel Bisulfate 75 mg 10/24/18 09:00 10/29/18 08:30 Plavix Tab* PO 75 mg DAILY GUIDO Administration Docusate Sodium 100 mg 10/23/18 21:00 10/29/18 08:31 Colace Cap* PO 100 mg BID GUIDO Administration Melatonin 3 mg 10/23/18 11:21 10/28/18 20:55 Melatonin PO 3 mg BEDTIME PRN Administration SLEEP Midodrine 5 mg 10/26/18 12:00 10/29/18 17:20 Midodrine (Nf) PO 5 mg 0700,1200,1700 GUIDO Administration Protocol Pantoprazole Sodium 40 mg 10/24/18 09:00 10/29/18 08:30 Protonix Tab* PO 40 mg DAILY GUIDO Administration Polyethylene Glycol/Electrolytes 17 gm 10/23/18 11:22 Miralax* PO DAILY PRN CONSTIPATION Rivaroxaban 20 mg 10/23/18 17:00 10/29/18 17:20 Xarelto(*) PO 20 mg 1700 GUIDO Administration Senna 2 tab 10/23/18 11:10 10/28/18 20:56 Senokot Tab* PO 2 tab BEDTIME PRN Administration CONSTIPATION Trazodone HCl 50 mg 10/23/18 11:20 10/28/18 22:46 Desyrel Tab* PO 50 mg BEDTIME PRN Administration INSOMNIA Vital Signs: Vital Signs Temp Pulse Resp BP Pulse Ox 98.3 F 66 16 130/78 98 10/29/18 16:05 10/29/18 16:05 10/29/18 16:05 10/29/18 16:05 10/29/18 16:05 Exam: GENERAL: no acute distress. alert and appropriate. Dysarthria LUNGS: clear to auscultation bilaterally HEART: regular rate and rhythm ABDOMEN: + bowel sounds, soft, non-tender, non-distended. EXTREMITIES: no edema NEUROLOGIC: Right facial droop. RUE/RLE motor 4+/5 throughout with normal sensation. 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 Lipitor. Try to keep SBP 140-180's. Regular diet. 2. 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 Midodrine 5mg tid. Thigh high hose/marichuy wrap legs/abdominal binder. Had trouble tolerating binder. If BP still an issue consider role of Florinef. 3. History of PE and DVT prophylaxis: Xarelto 20mg qday 4. Insomnia: melatonin and trazodone prn. 5. Advanced Directives: is hcp. Full code 10/29/18 18:32
[2018-10-29] MEDS: Melatonin 3 MG TAB PO PRN (21:49)
[2018-10-29] MEDS: traZODone TAB* 50 MG TAB PO PRN (22:34)
[2018-10-30] MEDS: CMCS: Midodrine (NF) 5 MG TAB PO SCH ×3 (06:38→16:30)
[2018-10-30] MEDS: Pantoprazole TAB * 40 MG TAB PO SCH (07:53)
[2018-10-30] MEDS: Clopidogrel TAB* 75 MG PO SCH (07:53)
[2018-10-30] MEDS: Docusate CAP* 100 MG PO SCH ×2 (07:53→19:05)
--- NOTE | 2018-10-30 16:08 | PN ---
Progress Note Date of Service: 10/30/18 Note: ELIZABETH SOLORZANO was visited. Therapy notes read and reviewed. He again ahd a good day with therapy and is moving better. BP stable Current Medications: Active Medications Generic Name Dose Route Start Last Admin Trade Name Freq PRN Reason Stop Dose Admin Acetaminophen 650 mg 10/23/18 11:10 10/29/18 21:49 Tylenol Tab* PO 650 mg Q6H PRN Administration FEVER > 101 Atorvastatin Calcium 20 mg 10/23/18 17:00 10/29/18 17:20 Lipitor* PO 20 mg 1700 GUIDO Administration Bisacodyl 10 mg 10/23/18 11:10 Dulcolax Supp* [place] DAILY PRN CONSTIPATION Clopidogrel Bisulfate 75 mg 10/24/18 09:00 10/30/18 07:53 Plavix Tab* PO 75 mg DAILY GUIDO Administration Docusate Sodium 100 mg 10/23/18 21:00 10/30/18 07:53 Colace Cap* PO Not Given BID GUIDO Melatonin 3 mg 10/23/18 11:21 10/29/18 21:49 Melatonin PO 3 mg BEDTIME PRN Administration SLEEP Midodrine 5 mg 10/26/18 12:00 10/30/18 11:40 Midodrine (Nf) PO 5 mg 0700,1200,1700 GUIDO Administration Protocol Pantoprazole Sodium 40 mg 10/24/18 09:00 10/30/18 07:53 Protonix Tab* PO 40 mg DAILY GUIDO Administration Polyethylene Glycol/Electrolytes 17 gm 10/23/18 11:22 Miralax* PO DAILY PRN CONSTIPATION Rivaroxaban 20 mg 10/23/18 17:00 10/29/18 17:20 Xarelto(*) PO 20 mg 1700 GUIDO Administration Senna 2 tab 10/23/18 11:10 10/28/18 20:56 Senokot Tab* PO 2 tab BEDTIME PRN Administration CONSTIPATION Trazodone HCl 50 mg 10/23/18 11:20 10/29/18 22:34 Desyrel Tab* PO 50 mg BEDTIME PRN Administration INSOMNIA Vital Signs: Vital Signs Temp Pulse Resp BP Pulse Ox 97.4 F 69 16 117/75 98 10/30/18 05:16 10/30/18 05:16 10/30/18 05:16 10/30/18 05:16 10/30/18 05:16 Exam: GENERAL: no acute distress. alert and appropriate. Dysarthria LUNGS: clear to auscultation bilaterally HEART: regular rate and rhythm ABDOMEN: + bowel sounds, soft, non-tender, non-distended. EXTREMITIES: no edema NEUROLOGIC: Right facial droop. RUE/RLE motor 4+/5 throughout with normal sensation. 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 Lipitor. Try to keep SBP 140-180's. Regular diet. 2. 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 Midodrine 5mg tid. Thigh high hose/marichuy wrap legs. 3. History of PE and DVT prophylaxis: Xarelto 20mg qday 4. Insomnia: melatonin and trazodone prn. 5. Advanced Directives: is hcp. Full code 10/30/18 16:08
[2018-10-30] MEDS: Atorvastatin* 20 MG TAB PO SCH (16:30)
[2018-10-30] MEDS: Rivaroxaban TAB(*) 20 MG TAB PO SCH (16:30)
[2018-10-30] MEDS: Melatonin 3 MG TAB PO PRN (20:58)
[2018-10-30] MEDS: traZODone TAB* 50 MG TAB PO PRN (22:12)
[2018-10-31] MEDS: CMCS: Midodrine (NF) 5 MG TAB PO SCH ×3 (06:26→16:53)
[2018-10-31] MEDS: Pantoprazole TAB * 40 MG TAB PO SCH (09:25)
[2018-10-31] MEDS: Clopidogrel TAB* 75 MG PO SCH (09:25)
[2018-10-31] MEDS: Docusate CAP* 100 MG PO SCH ×2 (09:25→21:01)
--- NOTE | 2018-10-31 13:46 | PN ---
Progress Note Date of Service: 10/31/18 Note: ELIZABETH SOLORZANO was visited. Therapy notes read and reviewed. He has no complaints today and is feeling well. Current Medications: Active Medications Generic Name Dose Route Start Last Admin Trade Name Freq PRN Reason Stop Dose Admin Acetaminophen 650 mg 10/23/18 11:10 10/29/18 21:49 Tylenol Tab* PO 650 mg Q6H PRN Administration FEVER > 101 Atorvastatin Calcium 20 mg 10/23/18 17:00 10/30/18 16:30 Lipitor* PO 20 mg 1700 GUIDO Administration Bisacodyl 10 mg 10/23/18 11:10 Dulcolax Supp* [place] DAILY PRN CONSTIPATION Clopidogrel Bisulfate 75 mg 10/24/18 09:00 10/31/18 09:25 Plavix Tab* PO 75 mg DAILY GUIDO Administration Docusate Sodium 100 mg 10/23/18 21:00 10/31/18 09:25 Colace Cap* PO Not Given BID GUIDO Melatonin 3 mg 10/23/18 11:21 10/30/18 20:58 Melatonin PO 3 mg BEDTIME PRN Administration SLEEP Midodrine 5 mg 10/26/18 12:00 10/31/18 12:21 Midodrine (Nf) PO 5 mg 0700,1200,1700 GUIDO Administration Protocol Pantoprazole Sodium 40 mg 10/24/18 09:00 10/31/18 09:25 Protonix Tab* PO 40 mg DAILY GUIDO Administration Polyethylene Glycol/Electrolytes 17 gm 10/23/18 11:22 Miralax* PO DAILY PRN CONSTIPATION Rivaroxaban 20 mg 10/23/18 17:00 10/30/18 16:30 Xarelto(*) PO 20 mg 1700 GUIDO Administration Senna 2 tab 10/23/18 11:10 10/28/18 20:56 Senokot Tab* PO 2 tab BEDTIME PRN Administration CONSTIPATION Trazodone HCl 50 mg 10/23/18 11:20 10/30/18 22:12 Desyrel Tab* PO 50 mg BEDTIME PRN Administration INSOMNIA Vital Signs: Vital Signs Temp Pulse Resp BP Pulse Ox 97.4 F 65 18 126/74 99 10/31/18 05:06 10/31/18 05:06 10/31/18 08:00 10/31/18 05:06 10/31/18 08:00 Exam: GENERAL: no acute distress. alert and appropriate. Dysarthria LUNGS: clear to auscultation bilaterally HEART: regular rate and rhythm ABDOMEN: + bowel sounds, soft, non-tender, non-distended. EXTREMITIES: no edema NEUROLOGIC: Right facial droop. RUE/RLE motor 4+/5 throughout with normal sensation. 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 Lipitor. Try to keep SBP 140-180's. Definitely improving. Regular diet. 2. Orthostatic and postprandial hypotension with h/o dumping syndrome: small frequent meals. Midodrine 5mg tid. Thigh high hose/marichuy wrap legs. 3. History of PE and DVT prophylaxis: Xarelto 20mg qday 4. Insomnia: melatonin and trazodone prn. 5. Advanced Directives: is hcp. Full code 10/31/18 13:46
[2018-10-31] MEDS: Rivaroxaban TAB(*) 20 MG TAB PO SCH (16:53)
[2018-10-31] MEDS: Atorvastatin* 20 MG TAB PO SCH (16:53)
[2018-10-31] MEDS: Melatonin 3 MG TAB PO PRN (21:03)
[2018-10-31] MEDS: Acetaminophen TAB* 325 MG PO PRN (21:06)
[2018-10-31] MEDS: traZODone TAB* 50 MG TAB PO PRN (22:08)
[2018-11-01] MEDS: CMCS: Midodrine (NF) 5 MG TAB PO SCH ×3 (06:33→17:07)
[2018-11-01] MEDS: Docusate CAP* 100 MG PO SCH ×2 (08:32→21:59)
[2018-11-01] MEDS: Pantoprazole TAB * 40 MG TAB PO SCH (08:32)
[2018-11-01] MEDS: Clopidogrel TAB* 75 MG PO SCH (08:32)
--- NOTE | 2018-11-01 16:33 | PN ---
Progress Note Date of Service: 11/01/18 Note: ELIZABETH SOLORZANO was visited. Nursing notes read and reviewed. He has no complaints. No real symptomatic drops in BP today Current Medications: Active Medications Generic Name Dose Route Start Last Admin Trade Name Freq PRN Reason Stop Dose Admin Acetaminophen 650 mg 10/23/18 11:10 10/31/18 21:06 Tylenol Tab* PO 650 mg Q6H PRN Administration FEVER > 101 Atorvastatin Calcium 20 mg 10/23/18 17:00 10/31/18 16:53 Lipitor* PO 20 mg 1700 GUIDO Administration Bisacodyl 10 mg 10/23/18 11:10 Dulcolax Supp* [place] DAILY PRN CONSTIPATION Clopidogrel Bisulfate 75 mg 10/24/18 09:00 11/01/18 08:32 Plavix Tab* PO 75 mg DAILY GUIDO Administration Docusate Sodium 100 mg 10/23/18 21:00 11/01/18 08:32 Colace Cap* PO 100 mg BID GUIDO Administration Melatonin 3 mg 10/23/18 11:21 10/31/18 21:03 Melatonin PO 3 mg BEDTIME PRN Administration SLEEP Midodrine 5 mg 10/26/18 12:00 11/01/18 12:08 Midodrine (Nf) PO 5 mg 0700,1200,1700 GUIDO Administration Protocol Pantoprazole Sodium 40 mg 10/24/18 09:00 11/01/18 08:32 Protonix Tab* PO 40 mg DAILY GUIDO Administration Polyethylene Glycol/Electrolytes 17 gm 10/23/18 11:22 Miralax* PO DAILY PRN CONSTIPATION Rivaroxaban 20 mg 10/23/18 17:00 10/31/18 16:53 Xarelto(*) PO 20 mg 1700 GUIDO Administration Senna 2 tab 10/23/18 11:10 10/28/18 20:56 Senokot Tab* PO 2 tab BEDTIME PRN Administration CONSTIPATION Trazodone HCl 50 mg 10/23/18 11:20 10/31/18 22:08 Desyrel Tab* PO 50 mg BEDTIME PRN Administration INSOMNIA Vital Signs: Vital Signs Temp Pulse Resp BP Pulse Ox 98.0 F 76 20 125/64 97 11/01/18 15:00 11/01/18 15:00 11/01/18 15:00 11/01/18 15:00 11/01/18 15:00 Exam: GENERAL: no acute distress. alert and appropriate. Dysarthria LUNGS: clear to auscultation bilaterally HEART: regular rate and rhythm ABDOMEN: + bowel sounds, soft, non-tender, non-distended. EXTREMITIES: no edema NEUROLOGIC: Right facial droop. RUE/RLE motor 4+/5 throughout with normal sensation. 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 Lipitor. Try to keep SBP 140-180's. Definitely improving. Regular diet. 2. Orthostatic and postprandial hypotension with h/o dumping syndrome: small frequent meals. Midodrine 5mg tid. Thigh high hose/marichuy wrap legs. 3. History of PE and DVT prophylaxis: Xarelto 20mg qday 4. Insomnia: melatonin and trazodone prn. 5. Advanced Directives: is hcp. Full code 11/01/18 16:34
[2018-11-01] MEDS: Atorvastatin* 20 MG TAB PO SCH (17:08)
[2018-11-01] MEDS: Rivaroxaban TAB(*) 20 MG TAB PO SCH (17:08)
[2018-11-01] MEDS: Melatonin 3 MG TAB PO PRN (21:34)
[2018-11-01] MEDS: Acetaminophen TAB* 325 MG PO PRN (21:34)
[2018-11-01] MEDS: traZODone TAB* 50 MG TAB PO PRN (22:32)
[2018-11-02] MEDS: CMCS: Midodrine (NF) 5 MG TAB PO SCH ×3 (06:16→17:10)
[2018-11-02] MEDS: Docusate CAP* 100 MG PO SCH ×2 (09:24→20:18)
[2018-11-02] MEDS: Clopidogrel TAB* 75 MG PO SCH (09:24)
[2018-11-02] MEDS: Pantoprazole TAB * 40 MG TAB PO SCH (09:24)
[2018-11-02] MEDS: Rivaroxaban TAB(*) 20 MG TAB PO SCH (17:11)
[2018-11-02] MEDS: Atorvastatin* 20 MG TAB PO SCH (17:11)
[2018-11-02] MEDS: Polyethylene Glycol 3350* 17 GM PACKET PO PRN (17:14)
--- NOTE | 2018-11-02 18:07 | PN ---
Progress Note Date of Service: 11/02/18 Note: ELIZABETH SOLORZANO was visited. Therapy notes read and reviewed. His BPs were a little low today but he did not have any neurological symptoms like he did before. Current Medications: Active Medications Generic Name Dose Route Start Last Admin Trade Name Freq PRN Reason Stop Dose Admin Acetaminophen 650 mg 10/23/18 11:10 11/01/18 21:34 Tylenol Tab* PO 650 mg Q6H PRN Administration FEVER > 101 Atorvastatin Calcium 20 mg 10/23/18 17:00 11/02/18 17:11 Lipitor* PO 20 mg 1700 GUIDO Administration Bisacodyl 10 mg 10/23/18 11:10 Dulcolax Supp* [place] DAILY PRN CONSTIPATION Clopidogrel Bisulfate 75 mg 10/24/18 09:00 11/02/18 09:24 Plavix Tab* PO 75 mg DAILY GUIDO Administration Docusate Sodium 100 mg 10/23/18 21:00 11/02/18 09:24 Colace Cap* PO 100 mg BID GUIDO Administration Melatonin 3 mg 10/23/18 11:21 11/01/18 21:34 Melatonin PO 3 mg BEDTIME PRN Administration SLEEP Midodrine 5 mg 10/26/18 12:00 11/02/18 17:10 Midodrine (Nf) PO 5 mg 0700,1200,1700 GUIDO Administration Protocol Pantoprazole Sodium 40 mg 10/24/18 09:00 11/02/18 09:24 Protonix Tab* PO 40 mg DAILY GUIDO Administration Polyethylene Glycol/Electrolytes 17 gm 10/23/18 11:22 11/02/18 17:14 Miralax* PO 17 gm DAILY PRN Administration CONSTIPATION Rivaroxaban 20 mg 10/23/18 17:00 11/02/18 17:11 Xarelto(*) PO 20 mg 1700 GUIDO Administration Senna 2 tab 10/23/18 11:10 10/28/18 20:56 Senokot Tab* PO 2 tab BEDTIME PRN Administration CONSTIPATION Trazodone HCl 50 mg 10/23/18 11:20 11/01/18 22:32 Desyrel Tab* PO 50 mg BEDTIME PRN Administration INSOMNIA Vital Signs: Vital Signs Temp Pulse Resp BP Pulse Ox 99 F 88 18 147/75 96 11/02/18 16:22 11/02/18 16:22 11/02/18 16:22 11/02/18 16:22 11/02/18 16:22 Exam: GENERAL: no acute distress. alert and appropriate. Dysarthria LUNGS: clear to auscultation bilaterally HEART: regular rate and rhythm ABDOMEN: + bowel sounds, soft, non-tender, non-distended. EXTREMITIES: no edema NEUROLOGIC: Right facial droop. RUE/RLE motor 4+/5 throughout with normal sensation. 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 Lipitor. Try to keep SBP 140-180's. Definitely improving. Regular diet. 2. Orthostatic and postprandial hypotension with h/o dumping syndrome: small frequent meals. Midodrine 5mg tid. Thigh high hose/marichyu wrap legs. 3. History of PE and DVT prophylaxis: Xarelto 20mg qday 4. Insomnia: melatonin and trazodone prn. 5. Advanced Directives: is hcp. Full code 11/02/18 18:08
[2018-11-02] MEDS: Melatonin 3 MG TAB PO PRN (20:42)
[2018-11-02] MEDS: traZODone TAB* 50 MG TAB PO PRN (21:24)
[2018-11-03] MEDS: Acetaminophen TAB* 325 MG PO PRN (00:30)
[2018-11-03] MEDS: CMCS: Midodrine (NF) 5 MG TAB PO SCH ×3 (06:32→17:21)
[2018-11-03] MEDS: Clopidogrel TAB* 75 MG PO SCH (08:22)
[2018-11-03] MEDS: Docusate CAP* 100 MG PO SCH ×2 (08:22→21:03)
[2018-11-03] MEDS: Pantoprazole TAB * 40 MG TAB PO SCH (08:22)
--- NOTE | 2018-11-03 12:42 | PMRUTEAM ---
PMRU: Team Meeting Current Status: Nursing: Current Status Skin Deviations [Right Knee] Abrasion Skin Deviation Description [ - Right Knee] Drain Type [Right Knee] None Bladder Current Status uses urinal independently no episodes of incontinence Bowel Current Status uses bedside commode with set-up last bowel mvmt 10/26 receives bowel medications as needed Nutrition Current Status good appetite pt ingests small amts independently s/p hx dumping syndrome Medication Current Status pt takes all medications as prescribed Pt verbalizes understanding of interventions Physical Therapy: Current Status Bed Mobility Assistance Supervision Transfer Mobility Assistance Contact Guard Assist Transfer/Bed Mobility Rolling Walker Recommended Devices Ambulation Assistance Contact Guard Assist Ambulation Assistive Devices Rolling Walker Number of Feet Patient 100, 150 Ambulated Stairs Assistance Supervision Stairs Recommended Devices Two Rails Number of Stairs 5 Manual Wheelchair Control/ Bilateral UE's Technique Wheelchair Propulsion Ability Standby Assistance Wheelchair Distance (ft) 50 Occupational Therapy: Current Status Upper Body Dressing Supervision Lower Body Dressing Min Assist Bathing Supervision Toileting Supervision Toilet Transfer Supervision Shower Transfer Supervision Eating Supervision Rec Therapy: Current Status Summary of Assessment and Recreation Therapy services introduced and Clinical Impression assessment is complete. Pt. has been very social and interactive during leisure visits. Treatment Goals Pt. will engage in leisure activities while on the unit. Treatment Plan Provide recreation therapy and encourage involvement. Social Work: Current Status Discharge Plan return home with home care svs and family support Potential for Family Training pt's is involved and supportive Anticipated Discharge Home Destination Discharge With home care svs and family support Nutrition: Current Status Monitoring Eating well (95-100%) and meeting needs. Takes precautions to avoid dumping symptoms by continuing with small frequent meals. Last BM - had previously been constipated then resolved . Receiving appropriate bowel meds. Monitor for improvement - otherwise no specific further intervention since meeting other goals. Speech: Current Status Assessment Patient is progressing as expected. Patient demonstrated the ability to balance betwewen overly slowing and overarticulating target sentences, and speaking with normal conversational articulation at a moderate pace. Patient self- corrected many speech sounds, and reponded to instruction by correcting specific coarticulation distortions in difficult contexts. Goals: Physical Therapy: Initial Goals Bed Mobility Assistance Independent Transfer Mobility Assistance Independent Transfer/Bed Mobility Rolling Walker Recommended Devices Ambulation Independent Ambulation Recommended Devices Rolling Walker Ambulation Distance 300 Stairs Assistance Independent Stair Recommended Devices Two Rails Number of Stairs 12 Home Exercise Program Independent Assistance Physical Therapy: Updated Goals Transfer/Bed Mobility Rolling Walker Recommended Devices Occupational Therapy: Initial Goals Goals to be Completed in (Days 10-14 days ) Upper Body Bathing Routine Modified Independent with Lower Body Bathing Routine Modified Independent with Upper Body Dressing Routine Independent Lower Body Dressing Routine Independent Toilet Hygeine and Clothing Modified Independent with Management Routine Toilet Transfer Routine Modified Independent with Step-In Shower Transfer Modified Independent with Routine Tub Transfer Routine Modified Independent with Grooming Routine Independent Feeding Routine Independent Nursing: Goals Bladder Goal independent use of urinal remain continent Bowel Goal prevent constipation maintain regular schedule Nutrition Goal maintain adequate intake prevent dumping syndrome Medication Goal independent medication management Nutrition: Goals Intervention Goals 1. pt will tolerate po intake without s/sx dumping syndrome or other adverse GI effects 2. adequate po intake to maintain lean body mass and hydration without add'l wt gain 3. will tolerate least-restrictive diet texture ( ie: regular) without difficulty chewing or swallowing 4. achieve and maintain serum electrolytes levels WNL 5. achieve and maintain regulated bowel pattern without c/o constipation (or diarrhea) Speech: Goals Speech Goal 1 Motor-speech Goal 1 Comments Motor-speech Long-Term Goal: Pt will use compensatory strategies to I'ly speak with 100% intelligibility . Short-Term Goal 1: Pt will use compensatory strategies to control speech prosody (rate, stress , intonation) and sequencing (clusters, multisyllabic words) to reduce cluttering and increase speech intelligibility to 95% in structured conversation and speech activities, given Moderate cueing. Short-Term Goal 2: Pt will use compensatory articulation strategies to correct resonance and accurate articulation (nasals, labial fricatives, liquids), to increase speech intelligibility to 95 % in structured conversation and speech activities , given Moderate cueing. Status: Progressing. DENTAL PATIENT COORDINATOR probed current articulation by imitation of pairs of words that covered all phonemes, and provided specific feedback to correct mild distortions and words that patient found to be difficulty. DENTAL PATIENT COORDINATOR modeled phrases and sentences loaded with target phonemes j, s , and s-clusters, and patient modified his production to connected but articulate. Production of S was 85% accurate and J was 90%. Social Work: Goals Discharge Plan return home with home care svs and family support Potential for Family Training pt's is involved and supportive Anticipated Discharge Home Destination Discharge With home care svs and family support Care Plan: Care Plan ADL's - Improve/Maintain Start: 11/02/18 15:05 Freq: DAILY Status: Active Target: Protocol: Activity Type Activity Date Activity User E-Sign Co-Sign Detail Recorded Client Recorded Date Recorded By Document 11/02/18 15:05 [id number] 11/02/18 15:05 [id number] 11/02/18 15:05 PMRU Outcome: ADL's/ADL Transfers Orders/Interventions Occupational Therapy Evaluation & Treatment Communication Tool in Patient Room Patient to receive OT 5x/wk for 60-120 Therex min/day Self Care Management Group Therapy Neuromuscular ReEducation UE/LE ADL's with Assist Yes: mod I ADL Transfers with Assist Yes: mod I Toileting: Transfers,Clothing Management Yes: mod I ,Hygeine w/Assist Light Kitchen/Laundry w/Assist Yes Outcome/Goals Met Pt imporoving his ability to complete lower body dressing and is improving his ability to write and trace lines. Cardiovascular- Improve/Maintain Start: 10/23/18 12:53 Freq: QSHIFT Status: Active Target: Protocol: Activity Type Activity Date Activity User E-Sign Co-Sign Detail Recorded Client Recorded Date Recorded By Document 11/02/18 20:00 [id number] 11/02/18 22:02 [id number] 11/02/18 20:00 PMRU Outcome: Cardiovascular Vital Signs q Shift for 48hrs Then BID Yes Daily Weight Ordered No Current Cardiovascular Outcome/Goal Maintain/ Achieve Baseline HR, BP , Perfusion Maintain/ Improve Perfusion Maintain/ Achieve Hemodynamic Stability Free of Abnormal Cardiac Symptoms Progression Toward Outcome/Goal Progressing Communication-Improve/Maintain Start: 10/23/18 12:53 Freq: DAILY Status: Active Target: Protocol: Activity Type Activity Date Activity User E-Sign Co-Sign Detail Recorded Client Recorded Date Recorded By Document 11/03/18 11:39 [id number] 11/03/18 11:40 [id number] 11/03/18 11:39 PMRU Outcome: Communication/Cognitive Status Outcome/Goals Makes Needs Known Effectively Other Outcomes/Goals Motor-speech Long-Term Goal: Pt will use compensatory strategies to I 'ly speak with 100% intelligibility . Short-Term Goal 1: Pt will use compensatory strategies to control speech prosody (rate, stress, intonation) and sequencing ( clusters, multisyllabic words) to reduce cluttering and increase speech intelligibility to 95% in structured conversation and speech activities, given Moderate cueing. Short-Term Goal 2: Pt will use compensatory articulation strategies to correct resonance and accurate articulation ( nasals, labial fricatives, liquids), to increase speech intelligibility to 95% in structured conversation and speech activities, given Moderate cueing. Status: Progressing as expected. Progression Toward Outcomes/Goals Progressing Outcome/Goals Met Comment Patient is progressing as expected. Patient demonstrated the ability to balance betwewen overly slowing and overarticulatin g target sentences, and speaking with normal conversational articulation at a moderate pace. Patient self-corrected many speech sounds, and reponded to instruction by correcting specific coarticulation distortions in difficult contexts. DENTAL PATIENT COORDINATOR probed current articulation by imitation of pairs of words that covered all phonemes, and provided specific feedback to correct mild distortions and words that patient found to be difficulty. DENTAL PATIENT COORDINATOR modeled phrases and sentences loaded with target phonemes j, s , and s- clusters, and patient modified his production to connected but articulate. Production of S was 85% accurate and J was 90%. Coping/Psych-Improve/Maintain Start: 10/23/18 12:53 Freq: QSHIFT Status: Complete Target: Protocol: Activity Type Activity Date Activity User E-Sign Co-Sign Detail Recorded Client Recorded Date Recorded By Document 10/28/18 15:51 [id number] [id number] 10/28/18 15:52 [id number] 10/28/18 15:51 PMRU Outcome: Coping/Psychosocial Coping Outcome/Goals Verbalization of Acceptance of Rehab Admit Verbalization of Sense of Control Over Health Status Utilization of Appropriate Problem Solving Techniques Willingness to Participate in Treatment Plan and Basic Needs Utilization of Available Support Systems Psychosocial Outcome/Goals Demonstrates Knowledge of Healthy Coping Mechanisms Available Cooperate/ Participate in Plan Coping Outcome/Goals Met Demonstrates Understanding of Rehab Admit and Goal Setting Process Psychosocial Outcome/Goals Met Maintain/ Improved Emotional Health DVT Prophylaxis- Improve/Maintain Start: 10/23/18 12:53 Freq: QSHIFT Status: Active Target: Protocol: Activity Type Activity Date Activity User E-Sign Co-Sign Detail Recorded Client Recorded Date Recorded By Document 11/02/18 20:00 [id number] 11/02/18 22:02 [id number] 11/02/18 20:00 PMRU Outcome: DVT Prophylaxis Outcome/Goals Remains Free of DVT Complies with DVT Prophylaxis /Treatment Demonstrates Knowledge of DVT Prevention/ Treatment TEDS Stockings on Every AM, Off at HS Progression Toward Outcome/Goals Progressing Discharge Planning - Improve/Maintain Start: 10/23/18 12:53 Freq: DAILY Status: Active Target: Protocol: Activity Type Activity Date Activity User E-Sign Co-Sign Detail Recorded Client Recorded Date Recorded By Document 11/02/18 23:53 [id number] [id number] 11/02/18 23:54 [id number] 11/02/18 23:53 PMRU Outcome: Discharge Planning Update Patient Family No Outcome/Goals Demonstrates Understanding of Discharge Plan Progression Toward Outcome/Goals Progressing Education-Improve/Maintain Start: 10/23/18 12:53 Freq: QSHIFT Status: Active Target: Protocol: Activity Type Activity Date Activity User E-Sign Co-Sign Detail Recorded Client Recorded Date Recorded By Document 11/02/18 20:00 [id number] 11/02/18 22:02 [id number] 11/02/18 20:00 PMRU Outcome: Education Outcome/Goals Demonstrates Skills Encourage Questions Progression Toward Outcome/Goals Progressing Medication Administration Start: 10/23/18 12:53 Freq: QSHIFT Status: Active Target: Protocol: Activity Type Activity Date Activity User E-Sign Co-Sign Detail Recorded Client Recorded Date Recorded By Document 11/02/18 20:00 [id number] 11/02/18 22:02 [id number] 11/02/18 20:00 PMRU Outcome: Medication Administration Assess Patient Knowledge/Teach Med Yes Education for all Meds Outcome/Goals Patient Independent with Medication Administration at Home Demonstrates Understanding Progression Towards Outcome/Goals Progressing Is Patient Going Home on Lovenox? No Neurological- Improve/Maintain Start: 10/23/18 12:53 Freq: QSHIFT Status: Active Target: Protocol: Activity Type Activity Date Activity User E-Sign Co-Sign Detail Recorded Client Recorded Date Recorded By Document 11/02/18 20:00 [id number] 11/02/18 22:02 [id number] 11/02/18 20:00 PMRU Outcome: Neurological Weakness/Aphasia Weakness Right Side Outcome/Goals Improve Neurological Status Prevent Avoidable Neurological Decline Demonstrate Knowledge of Prevention/Tx of Neuro Disorders/ Complication Maintain/ Improve Strength/ROM Progression Toward Outcome/Goals Progressing Nutrition/Swallowing- Improve/Maintain Start: 10/23/18 12:53 Freq: QSHIFT Status: Complete Target: Protocol: Activity Type Activity Date Activity User E-Sign Co-Sign Detail Recorded Client Recorded Date Recorded By Document 10/28/18 15:51 [id number] [email or web address] 10/28/18 15:52 [id number] 10/28/18 15:51 PMRU Outcome: Nutrition/Swallowing Outcome/Goals Demonstrates Adequate Hydration/ Prevents Dehydration Maintain/ Improve Nutritional Status Outcome/Goals Met Demonstrates Adequate Hydration/ Prevents Dehydration Maintain/ Improve Nutritional Status Safety- Improve/Maintain Start: 10/23/18 12:53 Freq: QSHIFT Status: Active Target: Protocol: Activity Type Activity Date Activity User E-Sign Co-Sign Detail Recorded Client Recorded Date Recorded By Document 11/02/18 20:00 [id number] 11/02/18 22:02 [id number] 11/02/18 20:00 PMRU Outcome: Safety Outcome/Goals Remain Free of Injury or Harm Cooperates with Safety Measures for Least Restrictive Environment Prevent Falls/ Injury Progression Toward Outcome/Goals Progressing Medicine Note: Length of Stay: 8 days Anticipated Discharge Destination: Home Tentative Discharge Date: 11/11/18 Discharged to: Home
[2018-11-03] MEDS: Polyethylene Glycol 3350* 17 GM PACKET PO PRN (17:17)
[2018-11-03] MEDS: Atorvastatin* 20 MG TAB PO SCH (17:20)
[2018-11-03] MEDS: Rivaroxaban TAB(*) 20 MG TAB PO SCH (17:21)
[2018-11-03] MEDS: Melatonin 3 MG TAB PO PRN (21:03)
[2018-11-03] MEDS: traZODone TAB* 50 MG TAB PO PRN (22:26)
[2018-11-04] MEDS: CMCS: Midodrine (NF) 5 MG TAB PO SCH ×3 (06:11→16:32)
[2018-11-04 06:22] LABS: ABS Basophils 0.1 10^3/ul (0-0.2); ABS Eosinophils 0.2 10^3/ul (0-0.6); ABS Lymphocytes 1.6 10^3/ul (1.0-4.8); ABS Monocytes 0.9 10^3/ul (0-0.8); ABS Neutrophils 6.3 10^3/ul (1.5-7.7); ABS Nucleated RBC 0 10^3/ul; Eosinophil % 2.1 %; Hematocrit 43 % (36-46); Hemoglobin 14.1 g/dL (14.0-18.0); Lymphocyte % 17.3 %; Mean Corpuscular HGB Conc 33 g/dL (31-36); Mean Corpuscular Hemoglobin 28 pg (27-31); Mean Corpuscular Volume 85 fL (80-94); Mean Platelet Volume 7.5 fL (7.4-10.4); Nucleated Red Blood Cells % 0; Platelet Count 435 10^3/uL (150-450); Red Blood Count 5.01 10^6 /uL (4.18-5.48); Red Cell Distribution Width 17 % (10.5-15); White Blood Count 9.2 10^3/uL (3.5-10.8)
[2018-11-04 06:39] LABS: Albumin 3.6 g/dL (3.2-5.2); Albumin/Globulin Ratio 1.1 (1-3); BUN/Creatinine Ratio 20.2 (8-20); Calcium 9.3 mg/dL (8.6-10.3); EGFR African American 102.9 (>60); Globulin 3.4 g/dL (2-4); Potassium 4.2 mmol/L (3.5-5.0); Total Bilirubin 0.6 mg/dL (0.2-1.0)
[2018-11-04] MEDS: Pantoprazole TAB * 40 MG TAB PO SCH (09:59)
[2018-11-04] MEDS: Docusate CAP* 100 MG PO SCH ×2 (09:59→20:11)
[2018-11-04] MEDS: Clopidogrel TAB* 75 MG PO SCH (09:59)
[2018-11-04] MEDS: Rivaroxaban TAB(*) 20 MG TAB PO SCH (16:30)
[2018-11-04] MEDS: Atorvastatin* 20 MG TAB PO SCH (16:33)
--- NOTE | 2018-11-04 18:48 | PN ---
Progress Note Date of Service: 11/04/18 Note: ELIZABETH SOLORZANO was visited. Therapy notes read and reviewed. He seems to be doing well, with his BP and symptoms. Will d/c abdominal binder. He does not like it and it rides up on him. Current Medications: Active Medications Generic Name Dose Route Start Last Admin Trade Name Freq PRN Reason Stop Dose Admin Acetaminophen 650 mg 10/23/18 11:10 11/03/18 00:30 Tylenol Tab* PO 650 mg Q6H PRN Administration FEVER > 101 Atorvastatin Calcium 20 mg 10/23/18 17:00 11/04/18 16:33 Lipitor* PO 20 mg 1700 GUIDO Administration Bisacodyl 10 mg 10/23/18 11:10 Dulcolax Supp* [place] DAILY PRN CONSTIPATION Clopidogrel Bisulfate 75 mg 10/24/18 09:00 11/04/18 09:59 Plavix Tab* PO 75 mg DAILY GUIDO Administration Docusate Sodium 100 mg 10/23/18 21:00 11/04/18 09:59 Colace Cap* PO 100 mg BID GUIDO Administration Melatonin 3 mg 10/23/18 11:21 11/03/18 21:03 Melatonin PO 3 mg BEDTIME PRN Administration SLEEP Midodrine 5 mg 10/26/18 12:00 11/04/18 16:32 Midodrine (Nf) PO 5 mg 0700,1200,1700 GUIDO Administration Protocol Pantoprazole Sodium 40 mg 10/24/18 09:00 11/04/18 09:59 Protonix Tab* PO 40 mg DAILY GUIDO Administration Polyethylene Glycol/Electrolytes 17 gm 10/23/18 11:22 11/03/18 17:17 Miralax* PO 17 gm DAILY PRN Administration CONSTIPATION Rivaroxaban 20 mg 10/23/18 17:00 11/04/18 16:30 Xarelto(*) PO 20 mg 1700 GUIDO Administration Senna 2 tab 10/23/18 11:10 10/28/18 20:56 Senokot Tab* PO 2 tab BEDTIME PRN Administration CONSTIPATION Trazodone HCl 50 mg 10/23/18 11:20 11/03/18 22:26 Desyrel Tab* PO 50 mg BEDTIME PRN Administration INSOMNIA Vital Signs: Vital Signs Temp Pulse Resp BP Pulse Ox 97.2 F 75 16 132/96 97 11/04/18 14:55 11/04/18 14:55 11/04/18 14:55 11/04/18 14:55 11/04/18 14:55 Lab Results: Laboratory Results - last 24 hr 11/04/18 11/04/18 06:10 06:10 WBC 9.2 RBC 5.01 Hgb 14.1 Hct 43 MCV 85 MCH 28 MCHC 33 RDW 17 H Plt Count 435 MPV 7.5 Neut % (Auto) 69.3 Lymph % (Auto) 17.3 Craven % (Auto) 10.2 Eos % (Auto) 2.1 Baso % (Auto) 1.1 Absolute Neuts (auto) 6.3 Absolute Lymphs (auto) 1.6 Absolute Monos (auto) 0.9 H Absolute Eos (auto) 0.2 Absolute Basos (auto) 0.1 Absolute Nucleated RBC 0 Nucleated RBC % 0 Sodium 138 Potassium 4.2 Chloride 104 Carbon Dioxide 27 Anion Gap 7 BUN 18 Creatinine 0.89 Est GFR ( Amer) 102.9 Est GFR (Non-Af Amer) 85.0 BUN/Creatinine Ratio 20.2 H Glucose 89 Calcium 9.3 Total Bilirubin 0.60 AST 17 ALT 15 Alkaline Phosphatase 66 Total Protein 7.0 Albumin 3.6 Globulin 3.4 Albumin/Globulin Ratio 1.1 Exam: GENERAL: no acute distress. alert and appropriate. Dysarthria LUNGS: clear to auscultation bilaterally HEART: regular rate and rhythm ABDOMEN: + bowel sounds, soft, non-tender, non-distended. EXTREMITIES: no edema NEUROLOGIC: Right facial droop. RUE/RLE motor 4+/5 throughout with normal sensation. 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 Lipitor. Try to keep SBP 140-180's. Definitely improving. Regular diet. 2. Orthostatic and postprandial hypotension with h/o dumping syndrome: small frequent meals. Midodrine 5mg tid. Thigh high hose/marichuy wrap legs. 3. History of PE and DVT prophylaxis: Xarelto 20mg qday 4. Insomnia: melatonin and trazodone prn. 5. Advanced Directives: is hcp. Full code 11/04/18 18:48
--- NOTE | 2018-11-04 18:50 | PN ---
Progress Note Date of Service: 11/03/18 Note: ELIZABETH SOLORZANO was visited. Therapy notes read and reviewed. He was discussed in interdisciplinary team rounds. Doing well with all therapies. Has not had an episode in 2 days Current Medications: Active Medications Generic Name Dose Route Start Last Admin Trade Name Freq PRN Reason Stop Dose Admin Acetaminophen 650 mg 10/23/18 11:10 11/03/18 00:30 Tylenol Tab* PO 650 mg Q6H PRN Administration FEVER > 101 Atorvastatin Calcium 20 mg 10/23/18 17:00 11/04/18 16:33 Lipitor* PO 20 mg 1700 GUIDO Administration Bisacodyl 10 mg 10/23/18 11:10 Dulcolax Supp* [place] DAILY PRN CONSTIPATION Clopidogrel Bisulfate 75 mg 10/24/18 09:00 11/04/18 09:59 Plavix Tab* PO 75 mg DAILY GUIDO Administration Docusate Sodium 100 mg 10/23/18 21:00 11/04/18 09:59 Colace Cap* PO 100 mg BID GUIDO Administration Melatonin 3 mg 10/23/18 11:21 11/03/18 21:03 Melatonin PO 3 mg BEDTIME PRN Administration SLEEP Midodrine 5 mg 10/26/18 12:00 11/04/18 16:32 Midodrine (Nf) PO 5 mg 0700,1200,1700 GUIDO Administration Protocol Pantoprazole Sodium 40 mg 10/24/18 09:00 11/04/18 09:59 Protonix Tab* PO 40 mg DAILY GUIDO Administration Polyethylene Glycol/Electrolytes 17 gm 10/23/18 11:22 11/03/18 17:17 Miralax* PO 17 gm DAILY PRN Administration CONSTIPATION Rivaroxaban 20 mg 10/23/18 17:00 11/04/18 16:30 Xarelto(*) PO 20 mg 1700 GUIDO Administration Senna 2 tab 10/23/18 11:10 10/28/18 20:56 Senokot Tab* PO 2 tab BEDTIME PRN Administration CONSTIPATION Trazodone HCl 50 mg 10/23/18 11:20 11/03/18 22:26 Desyrel Tab* PO 50 mg BEDTIME PRN Administration INSOMNIA Vital Signs: Vital Signs Temp Pulse Resp BP Pulse Ox 97.2 F 75 16 132/96 97 11/04/18 14:55 11/04/18 14:55 11/04/18 14:55 11/04/18 14:55 11/04/18 14:55 Lab Results: Laboratory Results - last 24 hr 11/04/18 11/04/18 06:10 06:10 WBC 9.2 RBC 5.01 Hgb 14.1 Hct 43 MCV 85 MCH 28 MCHC 33 RDW 17 H Plt Count 435 MPV 7.5 Neut % (Auto) 69.3 Lymph % (Auto) 17.3 Caroline % (Auto) 10.2 Eos % (Auto) 2.1 Baso % (Auto) 1.1 Absolute Neuts (auto) 6.3 Absolute Lymphs (auto) 1.6 Absolute Monos (auto) 0.9 H Absolute Eos (auto) 0.2 Absolute Basos (auto) 0.1 Absolute Nucleated RBC 0 Nucleated RBC % 0 Sodium 138 Potassium 4.2 Chloride 104 Carbon Dioxide 27 Anion Gap 7 BUN 18 Creatinine 0.89 Est GFR ( Amer) 102.9 Est GFR (Non-Af Amer) 85.0 BUN/Creatinine Ratio 20.2 H Glucose 89 Calcium 9.3 Total Bilirubin 0.60 AST 17 ALT 15 Alkaline Phosphatase 66 Total Protein 7.0 Albumin 3.6 Globulin 3.4 Albumin/Globulin Ratio 1.1 Exam: GENERAL: no acute distress. alert and appropriate. Dysarthria LUNGS: clear to auscultation bilaterally HEART: regular rate and rhythm ABDOMEN: + bowel sounds, soft, non-tender, non-distended. EXTREMITIES: no edema NEUROLOGIC: Right facial droop. RUE/RLE motor 4+/5 throughout with normal sensation. 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 Lipitor. Try to keep SBP 140-180's. Definitely improving. Regular diet. 2. Orthostatic and postprandial hypotension with h/o dumping syndrome: small frequent meals. Midodrine 5mg tid. Thigh high hose/marichuy wrap legs. 3. History of PE and DVT prophylaxis: Xarelto 20mg qday 4. Insomnia: melatonin and trazodone prn. 5. Advanced Directives: is hcp. Full code 11/03/18 18:50
[2018-11-04] MEDS: Melatonin 3 MG TAB PO PRN (20:08)
[2018-11-04] MEDS: traZODone TAB* 50 MG TAB PO PRN (21:46)
[2018-11-04] MEDS: Acetaminophen TAB* 325 MG PO PRN (23:58)
[2018-11-05] MEDS: CMCS: Midodrine (NF) 5 MG TAB PO SCH ×3 (05:43→18:14)
[2018-11-05] MEDS: Clopidogrel TAB* 75 MG PO SCH (08:36)
[2018-11-05] MEDS: Docusate CAP* 100 MG PO SCH ×2 (08:36→20:43)
[2018-11-05] MEDS: Pantoprazole TAB * 40 MG TAB PO SCH (08:36)
[2018-11-05] MEDS: Atorvastatin* 20 MG TAB PO SCH (18:14)
[2018-11-05] MEDS: Rivaroxaban TAB(*) 20 MG TAB PO SCH (18:14)
[2018-11-05] MEDS: Acetaminophen TAB* 325 MG PO PRN (20:43)
[2018-11-05] MEDS: Melatonin 3 MG TAB PO PRN (20:43)
--- NOTE | 2018-11-05 21:58 | PN ---
Progress Note Date of Service: 11/05/18 Note: ELIZABETH SOLORZANO was visited. Therapy notes read and reviewed. He has no complaints and had no episodes again today. BP has been stable; have eliminated binder, may get rid of marichuy wraps Current Medications: Active Medications Generic Name Dose Route Start Last Admin Trade Name Freq PRN Reason Stop Dose Admin Acetaminophen 650 mg 10/23/18 11:10 11/05/18 20:43 Tylenol Tab* PO 650 mg Q6H PRN Administration FEVER > 101 Atorvastatin Calcium 20 mg 10/23/18 17:00 11/05/18 18:14 Lipitor* PO 20 mg 1700 GUIDO Administration Bisacodyl 10 mg 10/23/18 11:10 Dulcolax Supp* [place] DAILY PRN CONSTIPATION Clopidogrel Bisulfate 75 mg 10/24/18 09:00 11/05/18 08:36 Plavix Tab* PO 75 mg DAILY GUIDO Administration Docusate Sodium 100 mg 10/23/18 21:00 11/05/18 20:43 Colace Cap* PO 100 mg BID GUIDO Administration Melatonin 3 mg 10/23/18 11:21 11/05/18 20:43 Melatonin PO 3 mg BEDTIME PRN Administration SLEEP Midodrine 5 mg 10/26/18 12:00 11/05/18 18:14 Midodrine (Nf) PO 5 mg 0700,1200,1700 GUIDO Administration Protocol Pantoprazole Sodium 40 mg 10/24/18 09:00 11/05/18 08:36 Protonix Tab* PO 40 mg DAILY GUIDO Administration Polyethylene Glycol/Electrolytes 17 gm 10/23/18 11:22 11/03/18 17:17 Miralax* PO 17 gm DAILY PRN Administration CONSTIPATION Rivaroxaban 20 mg 10/23/18 17:00 11/05/18 18:14 Xarelto(*) PO 20 mg 1700 GUIDO Administration Senna 2 tab 10/23/18 11:10 10/28/18 20:56 Senokot Tab* PO 2 tab BEDTIME PRN Administration CONSTIPATION Trazodone HCl 50 mg 10/23/18 11:20 11/04/18 21:46 Desyrel Tab* PO 50 mg BEDTIME PRN Administration INSOMNIA Vital Signs: Vital Signs Temp Pulse Resp BP Pulse Ox 98.9 F 70 16 123/61 99 11/05/18 14:40 11/05/18 14:40 11/05/18 18:51 11/05/18 14:40 11/05/18 18:51 Exam: GENERAL: no acute distress. alert and appropriate. Dysarthria LUNGS: clear to auscultation bilaterally HEART: regular rate and rhythm ABDOMEN: + bowel sounds, soft, non-tender, non-distended. EXTREMITIES: no edema NEUROLOGIC: Right facial droop. RUE/RLE motor 4+/5 throughout with normal sensation. 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 Lipitor. Try to keep SBP 140-180's. Definitely improving. Regular diet. 2. Orthostatic and postprandial hypotension with h/o dumping syndrome: small frequent meals. Midodrine 5mg tid. Thigh high hose/marichuy wrap legs. 3. History of PE and DVT prophylaxis: Xarelto 20mg qday 4. Insomnia: melatonin and trazodone prn. 5. Advanced Directives: is hcp. Full code 11/05/18 21:59
[2018-11-05] MEDS: traZODone TAB* 50 MG TAB PO PRN (22:35)
[2018-11-06] MEDS: CMCS: Midodrine (NF) 5 MG TAB PO SCH ×3 (06:41→17:08)
[2018-11-06] MEDS: Docusate CAP* 100 MG PO SCH ×2 (08:51→20:35)
[2018-11-06] MEDS: Clopidogrel TAB* 75 MG PO SCH (08:51)
[2018-11-06] MEDS: Pantoprazole TAB * 40 MG TAB PO SCH (08:51)
--- NOTE | 2018-11-06 14:01 | PN ---
Progress Note Date of Service: 11/06/18 Note: ELIZABETH SOLORZANO was visited. Nursing and therapy notes read and reviewed. No chest pain, shortness of breath or abdominal pain. He is pleased with his progress. Current Medications: Active Medications Generic Name Dose Route Start Last Admin Trade Name Freq PRN Reason Stop Dose Admin Acetaminophen 650 mg 10/23/18 11:10 11/05/18 20:43 Tylenol Tab* PO 650 mg Q6H PRN Administration FEVER > 101 Atorvastatin Calcium 20 mg 10/23/18 17:00 11/05/18 18:14 Lipitor* PO 20 mg 1700 GUIDO Administration Bisacodyl 10 mg 10/23/18 11:10 Dulcolax Supp* [place] DAILY PRN CONSTIPATION Clopidogrel Bisulfate 75 mg 10/24/18 09:00 11/06/18 08:51 Plavix Tab* PO 75 mg DAILY GUIDO Administration Docusate Sodium 100 mg 10/23/18 21:00 11/06/18 08:51 Colace Cap* PO 100 mg BID GUIDO Administration Melatonin 3 mg 10/23/18 11:21 11/05/18 20:43 Melatonin PO 3 mg BEDTIME PRN Administration SLEEP Midodrine 5 mg 10/26/18 12:00 11/06/18 11:56 Midodrine (Nf) PO 5 mg 0700,1200,1700 GUIDO Administration Protocol Pantoprazole Sodium 40 mg 10/24/18 09:00 11/06/18 08:51 Protonix Tab* PO 40 mg DAILY GIUDO Administration Polyethylene Glycol/Electrolytes 17 gm 10/23/18 11:22 11/03/18 17:17 Miralax* PO 17 gm DAILY PRN Administration CONSTIPATION Rivaroxaban 20 mg 10/23/18 17:00 11/05/18 18:14 Xarelto(*) PO 20 mg 1700 GUIDO Administration Senna 2 tab 10/23/18 11:10 10/28/18 20:56 Senokot Tab* PO 2 tab BEDTIME PRN Administration CONSTIPATION Trazodone HCl 50 mg 10/23/18 11:20 11/05/18 22:35 Desyrel Tab* PO 50 mg BEDTIME PRN Administration INSOMNIA Vital Signs: Vital Signs Temp Pulse Resp BP Pulse Ox 97.6 F 56 12 120/75 97 11/06/18 06:35 11/06/18 06:35 11/06/18 06:35 11/06/18 06:35 11/06/18 06:35 Exam: GENERAL: no acute distress. alert and appropriate. Dysarthria LUNGS: clear to auscultation bilaterally HEART: regular rate and rhythm ABDOMEN: + bowel sounds, soft, non-tender, non-distended. EXTREMITIES: no edema NEUROLOGIC: Right facial droop. RUE/RLE motor 4+/5 throughout with normal sensation. 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 Lipitor. Now tolerating lower BPs without additional symptoms. Regular diet. 2. Orthostatic and postprandial hypotension with h/o dumping syndrome: small frequent meals. Midodrine 5mg tid. Thigh high hose. 3. History of PE and DVT prophylaxis: Xarelto 20mg qday 4. Insomnia: melatonin and trazodone prn. 5. Advanced Directives: is hcp. Full code 11/06/18 14:00
[2018-11-06] MEDS: Rivaroxaban TAB(*) 20 MG TAB PO SCH (17:08)
[2018-11-06] MEDS: Atorvastatin* 20 MG TAB PO SCH (17:08)
[2018-11-06] MEDS: Melatonin 3 MG TAB PO PRN (20:35)
[2018-11-06] MEDS: Acetaminophen TAB* 325 MG PO PRN (20:44)
[2018-11-06] MEDS: traZODone TAB* 50 MG TAB PO PRN (22:17)
[2018-11-07] MEDS: CMCS: Midodrine (NF) 5 MG TAB PO SCH (05:53)
[2018-11-07] MEDS: Clopidogrel TAB* 75 MG PO SCH (09:49)
[2018-11-07] MEDS: Pantoprazole TAB * 40 MG TAB PO SCH (09:49)
[2018-11-07] MEDS: Docusate CAP* 100 MG PO SCH ×2 (09:49→21:12)
--- NOTE | 2018-11-07 10:55 | PN ---
Progress Note Date of Service: 11/07/18 Note: ELIZABETH SOLORZANO was visited. Nursing and therapy notes read and reviewed. No chest pain, shortness of breath or abdominal pain. SBP this AM 113 and he was without new symptoms. Current Medications: Active Medications Generic Name Dose Route Start Last Admin Trade Name Freq PRN Reason Stop Dose Admin Acetaminophen 650 mg 10/23/18 11:10 11/06/18 20:44 Tylenol Tab* PO 650 mg Q6H PRN Administration FEVER > 101 Atorvastatin Calcium 20 mg 10/23/18 17:00 11/06/18 17:08 Lipitor* PO 20 mg 1700 GUIDO Administration Bisacodyl 10 mg 10/23/18 11:10 Dulcolax Supp* [place] DAILY PRN CONSTIPATION Clopidogrel Bisulfate 75 mg 10/24/18 09:00 11/07/18 09:49 Plavix Tab* PO 75 mg DAILY GUIDO Administration Docusate Sodium 100 mg 10/23/18 21:00 11/07/18 09:49 Colace Cap* PO Not Given BID GUIDO Melatonin 3 mg 10/23/18 11:21 11/06/18 20:35 Melatonin PO 3 mg BEDTIME PRN Administration SLEEP Midodrine 5 mg 10/26/18 12:00 11/07/18 05:53 Midodrine (Nf) PO 5 mg 0700,1200,1700 GUIDO Administration Protocol Pantoprazole Sodium 40 mg 10/24/18 09:00 11/07/18 09:49 Protonix Tab* PO 40 mg DAILY GUIDO Administration Polyethylene Glycol/Electrolytes 17 gm 10/23/18 11:22 11/03/18 17:17 Miralax* PO 17 gm DAILY PRN Administration CONSTIPATION Rivaroxaban 20 mg 10/23/18 17:00 11/06/18 17:08 Xarelto(*) PO 20 mg 1700 GUIDO Administration Senna 2 tab 10/23/18 11:10 10/28/18 20:56 Senokot Tab* PO 2 tab BEDTIME PRN Administration CONSTIPATION Trazodone HCl 50 mg 10/23/18 11:20 11/06/18 22:17 Desyrel Tab* PO 50 mg BEDTIME PRN Administration INSOMNIA Vital Signs: Vital Signs Temp Pulse Resp BP Pulse Ox 97.5 F 64 16 113/65 98 11/07/18 05:55 11/07/18 05:55 11/07/18 06:00 11/07/18 05:55 11/07/18 06:00 Exam: GENERAL: no acute distress. alert and appropriate. Dysarthria LUNGS: clear to auscultation bilaterally HEART: regular rate and rhythm ABDOMEN: + bowel sounds, soft, non-tender, non-distended. EXTREMITIES: no edema NEUROLOGIC: Right facial droop. RUE/RLE motor 4+/5 throughout with normal sensation. 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 Lipitor. Now tolerating lower BPs without additional symptoms so will change midodrine to prn. Regular diet. 2. Orthostatic and postprandial hypotension with h/o dumping syndrome: small frequent meals. Midodrine 5mg tid prn. 3. History of PE and DVT prophylaxis: Xarelto 20mg qday 4. Insomnia: melatonin and trazodone prn. 5. Advanced Directives: is hcp. Full code 11/07/18 10:54
[2018-11-07] MEDS ORDERED: CMC:Midodrine (NF) 5 MG TAB PO PRN (16:00)
[2018-11-07] MEDS: CMC:Midodrine (NF) 5 MG TAB PO SCH (16:17)
[2018-11-07] MEDS: Rivaroxaban TAB(*) 20 MG TAB PO SCH (17:13)
[2018-11-07] MEDS: Atorvastatin* 20 MG TAB PO SCH (17:13)
[2018-11-07] MEDS: Melatonin 3 MG TAB PO PRN (21:12)
[2018-11-07] MEDS: traZODone TAB* 50 MG TAB PO PRN (22:03)
[2018-11-08] MEDS: Pantoprazole TAB * 40 MG TAB PO SCH (08:47)
[2018-11-08] MEDS: Clopidogrel TAB* 75 MG PO SCH (08:47)
[2018-11-08] MEDS: Docusate CAP* 100 MG PO SCH ×2 (08:47→21:03)
--- NOTE | 2018-11-08 09:33 | PN ---
Progress Note Date of Service: 11/08/18 Note: ELIZABETH SOLORZANO was visited. Nursing notes read and reviewed. He did not need any prn midodrine yesterday. Feels good. No chest pain, shortness of breath or abdominal pain. Current Medications: Active Medications Generic Name Dose Route Start Last Admin Trade Name Freq PRN Reason Stop Dose Admin Acetaminophen 650 mg 10/23/18 11:10 11/06/18 20:44 Tylenol Tab* PO 650 mg Q6H PRN Administration FEVER > 101 Atorvastatin Calcium 20 mg 10/23/18 17:00 11/07/18 17:13 Lipitor* PO 20 mg 1700 GUIDO Administration Bisacodyl 10 mg 10/23/18 11:10 Dulcolax Supp* [place] DAILY PRN CONSTIPATION Clopidogrel Bisulfate 75 mg 10/24/18 09:00 11/08/18 08:47 Plavix Tab* PO 75 mg DAILY GUIDO Administration Docusate Sodium 100 mg 10/23/18 21:00 11/08/18 08:47 Colace Cap* PO 100 mg BID GUIDO Administration Melatonin 3 mg 10/23/18 11:21 11/07/18 21:12 Melatonin PO 3 mg BEDTIME PRN Administration SLEEP Midodrine 5 mg 11/07/18 16:00 Midodrine (Nf) PO TID PRN SPB < 100 Protocol Pantoprazole Sodium 40 mg 10/24/18 09:00 11/08/18 08:47 Protonix Tab* PO 40 mg DAILY GUIDO Administration Polyethylene Glycol/Electrolytes 17 gm 10/23/18 11:22 11/03/18 17:17 Miralax* PO 17 gm DAILY PRN Administration CONSTIPATION Rivaroxaban 20 mg 10/23/18 17:00 11/07/18 17:13 Xarelto(*) PO 20 mg 1700 GUIDO Administration Senna 2 tab 10/23/18 11:10 10/28/18 20:56 Senokot Tab* PO 2 tab BEDTIME PRN Administration CONSTIPATION Trazodone HCl 50 mg 10/23/18 11:20 11/07/18 22:03 Desyrel Tab* PO 50 mg BEDTIME PRN Administration INSOMNIA Vital Signs: Vital Signs Temp Pulse Resp BP Pulse Ox 97.6 F 59 16 114/69 99 11/08/18 05:04 11/08/18 05:04 11/08/18 05:04 11/08/18 05:04 11/08/18 05:04 Exam: GENERAL: no acute distress. alert and appropriate. Dysarthria LUNGS: clear to auscultation bilaterally HEART: regular rate and rhythm ABDOMEN: + bowel sounds, soft, non-tender, non-distended. EXTREMITIES: no edema NEUROLOGIC: Right facial droop. RUE/RLE motor 4+/5 throughout with normal sensation. 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 Lipitor. Now tolerating lower BPs without additional symptoms. No longer needing scheduled midodrine. 2. Orthostatic and postprandial hypotension with h/o dumping syndrome: small frequent meals. Midodrine 5mg tid prn. May not need at d/c. 3. History of PE and DVT prophylaxis: Xarelto 20mg qday 4. Insomnia: melatonin and trazodone prn. 5. Advanced Directives: is hcp. Full code 11/08/18 09:32
[2018-11-08] MEDS: Atorvastatin* 20 MG TAB PO SCH (17:11)
[2018-11-08] MEDS: Rivaroxaban TAB(*) 20 MG TAB PO SCH (17:11)
[2018-11-08] MEDS: Acetaminophen TAB* 325 MG PO PRN (21:03)
[2018-11-08] MEDS: Melatonin 3 MG TAB PO PRN (21:03)
[2018-11-09] MEDS: Pantoprazole TAB * 40 MG TAB PO SCH (09:17)
[2018-11-09] MEDS: Clopidogrel TAB* 75 MG PO SCH (09:17)
[2018-11-09] MEDS: Docusate CAP* 100 MG PO SCH ×2 (09:18→21:14)
[2018-11-09] MEDS: Atorvastatin* 20 MG TAB PO SCH (17:17)
[2018-11-09] MEDS: Rivaroxaban TAB(*) 20 MG TAB PO SCH (17:17)
--- NOTE | 2018-11-09 17:18 | PN ---
Progress Note Date of Service: 11/09/18 Note: ELIZABETH SOLORZANO was visited. Therapy notes read and reviewed. He feels like he is doing well. Midodrine is now PRN, no episodes today Current Medications: Active Medications Generic Name Dose Route Start Last Admin Trade Name Freq PRN Reason Stop Dose Admin Acetaminophen 650 mg 10/23/18 11:10 11/08/18 21:03 Tylenol Tab* PO 650 mg Q6H PRN Administration FEVER > 101 Atorvastatin Calcium 20 mg 10/23/18 17:00 11/08/18 17:11 Lipitor* PO 20 mg 1700 GUIDO Administration Bisacodyl 10 mg 10/23/18 11:10 Dulcolax Supp* [place] DAILY PRN CONSTIPATION Clopidogrel Bisulfate 75 mg 10/24/18 09:00 11/09/18 09:17 Plavix Tab* PO 75 mg DAILY GUIDO Administration Docusate Sodium 100 mg 10/23/18 21:00 11/09/18 09:18 Colace Cap* PO Not Given BID GUIDO Melatonin 3 mg 10/23/18 11:21 11/08/18 21:03 Melatonin PO 3 mg BEDTIME PRN Administration SLEEP Midodrine 5 mg 11/07/18 16:00 Midodrine (Nf) PO TID PRN SPB < 100 Protocol Pantoprazole Sodium 40 mg 10/24/18 09:00 11/09/18 09:17 Protonix Tab* PO 40 mg DAILY GUIDO Administration Polyethylene Glycol/Electrolytes 17 gm 10/23/18 11:22 11/03/18 17:17 Miralax* PO 17 gm DAILY PRN Administration CONSTIPATION Rivaroxaban 20 mg 10/23/18 17:00 11/08/18 17:11 Xarelto(*) PO 20 mg 1700 GUIDO Administration Senna 2 tab 10/23/18 11:10 10/28/18 20:56 Senokot Tab* PO 2 tab BEDTIME PRN Administration CONSTIPATION Trazodone HCl 50 mg 10/23/18 11:20 11/07/18 22:03 Desyrel Tab* PO 50 mg BEDTIME PRN Administration INSOMNIA Vital Signs: Vital Signs Temp Pulse Resp BP Pulse Ox 97.7 F 72 18 137/68 100 11/09/18 16:12 11/09/18 16:12 11/09/18 16:12 11/09/18 16:12 11/09/18 16:12 Exam: GENERAL: no acute distress. alert and appropriate. Dysarthria LUNGS: clear to auscultation bilaterally HEART: regular rate and rhythm ABDOMEN: + bowel sounds, soft, non-tender, non-distended. EXTREMITIES: no edema NEUROLOGIC: Right facial droop. RUE/RLE motor 4+/5 throughout with normal sensation. 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 Lipitor. Now tolerating lower BPs without additional symptoms. 2. Orthostatic and postprandial hypotension with h/o dumping syndrome: small frequent meals. Midodrine 5mg tid prn. May not need at d/c. 3. History of PE and DVT prophylaxis: Xarelto 20mg qday 4. Insomnia: melatonin and trazodone prn. 5. Advanced Directives: is hcp. Full code 11/09/18 17:18
[2018-11-09] MEDS: Melatonin 3 MG TAB PO PRN (21:14)
[2018-11-09] MEDS: traZODone TAB* 50 MG TAB PO PRN (22:12)
[2018-11-09] MEDS: Acetaminophen TAB* 325 MG PO PRN (22:12)
[2018-11-10] MEDS: Clopidogrel TAB* 75 MG PO SCH (09:25)
[2018-11-10] MEDS: Pantoprazole TAB * 40 MG TAB PO SCH (09:26)
[2018-11-10] MEDS: Docusate CAP* 100 MG PO SCH ×2 (09:26→20:41)
--- NOTE | 2018-11-10 12:19 | PMRUTEAM ---
PMRU: Team Meeting Current Status: Nursing: Current Status Skin Deviations [Right Knee] Abrasion Skin Deviation Description [ - Right Knee] Drain Type [Right Knee] None Bladder Current Status uses urinal independently no episodes of incontinence Bowel Current Status uses bedside commode with set-up last bowel mvmt 10/26 receives bowel medications as needed Nutrition Current Status good appetite pt ingests small amts independently s/p hx dumping syndrome Medication Current Status pt takes all medications as prescribed Pt verbalizes understanding of interventions Physical Therapy: Current Status Bed Mobility Assistance Supervision Transfer Mobility Assistance Supervision Transfer/Bed Mobility Rolling Walker Recommended Devices Ambulation Assistance Supervision Ambulation Assistive Devices Rolling Walker Number of Feet Patient 300 Ambulated Stairs Assistance Supervision Stairs Recommended Devices Two Rails Number of Stairs flight Curb Not Tested Manual Wheelchair Control/ Bilateral UE's Technique Wheelchair Propulsion Ability Standby Assistance Wheelchair Distance (ft) 50 Objective Comments step to pattern ascend/descending stairs Occupational Therapy: Current Status Upper Body Dressing Supervision Lower Body Dressing Supervision Bathing Supervision Toileting Ind with Adaptive Equip Toilet Transfer Supervision Shower Transfer Supervision Eating Independent Rec Therapy: Current Status Summary of Assessment and Pt. has been watching TV and utilizing his laptop Clinical Impression for entertainment while in his room. Pt. has been open to conversation with t/w and expressed gratitude for the visits. Treatment Goals Pt. will continue to engage in leisure while on the unit Treatment Plan Continue providing recreation services Social Work: Current Status Discharge Plan Return home with home care svs and family support Potential for Family Training family training was Monday 11/06 Anticipated Discharge Home Destination Discharge With home care svs and family support Nutrition: Current Status Monitoring Continues to eat well/meeting needs. Continues to take precautions to avoid dumping symptoms by taking small frequent meals. Receiving between meal snacks. BMs 11/09, 11/07. Receiving appropriate bowel meds as indicated. No changes in intervention. Speech: Current Status Assessment Patient is progressing as expected. After previous instruction, patient retained clear R in initial/ prevocalic position. Given further instructio to advanvce tongue slightly and avoid lip rounding, patient corrected vocalized ("w") intervocalic R to fully rhotic R. Goals: Physical Therapy: Initial Goals Bed Mobility Assistance Independent Transfer Mobility Assistance Independent Transfer/Bed Mobility Rolling Walker Recommended Devices Ambulation Independent Ambulation Recommended Devices Rolling Walker Ambulation Distance 300 Stairs Assistance Independent Stair Recommended Devices Two Rails Number of Stairs 12 Home Exercise Program Independent Assistance Physical Therapy: Updated Goals Transfer/Bed Mobility Rolling Walker Recommended Devices Occupational Therapy: Initial Goals Goals to be Completed in (Days 10-14 days ) Upper Body Bathing Routine Modified Independent with Lower Body Bathing Routine Modified Independent with Upper Body Dressing Routine Independent Lower Body Dressing Routine Independent Toilet Hygeine and Clothing Modified Independent with Management Routine Toilet Transfer Routine Modified Independent with Step-In Shower Transfer Modified Independent with Routine Tub Transfer Routine Modified Independent with Grooming Routine Independent Feeding Routine Independent Nursing: Goals Bladder Goal independent use of urinal remain continent Bowel Goal prevent constipation maintain regular schedule Nutrition Goal maintain adequate intake prevent dumping syndrome Medication Goal independent medication management Nutrition: Goals Intervention Goals 1. pt will tolerate po intake without s/sx dumping syndrome or other adverse GI effects 2. adequate po intake to maintain lean body mass and hydration without add'l wt gain 3. will tolerate least-restrictive diet texture ( ie: regular) without difficulty chewing or swallowing 4. achieve and maintain serum electrolytes levels WNL 5. achieve and maintain regulated bowel pattern without c/o constipation (or diarrhea) Speech: Goals Speech Goal 1 Motor-speech Goal 1 Comments Motor-speech Long-Term Goal: Pt will use compensatory strategies to I'ly speak with 100% intelligibility . Status: Progressing as expected. Short-Term Goal 1: Pt will use compensatory strategies to control speech prosody (rate, stress , intonation) and sequencing (clusters, multisyllabic words) to reduce cluttering and increase speech intelligibility to 95% in structured conversation and speech activities, given Moderate cueing. Status: Progressing as expected. Short-Term Goal 2: Pt will use compensatory articulation strategies to correct resonance and accurate articulation (nasals, labial fricatives, liquids), to increase speech intelligibility to 95 % in structured conversation and speech activities , given Moderate cueing. Status: Progressing as expected. PROSTHETIC AIDES TEACHER instructed patient in tongue placement and provided contrasting environments to target intervocalic R. Patient continued to intermittently vocalize to "w" unless he broke the phonemes and isolated a prolonged R. PROSTHETIC AIDES TEACHER modified instruction, to have patient smile to avoid lip rounding, and to advance tongue elevation from molar to bicuspid region (further forward than the target 3/5ths point in oral tract to better differentiate R from W at 2/3rds point), and patient dramatically improved intervocalic R. Social Work: Goals Discharge Plan Return home with home care svs and family support Potential for Family Training family training was Monday 11/06 Anticipated Discharge Home Destination Discharge With home care svs and family support Care Plan: Care Plan ADL's - Improve/Maintain Start: 11/02/18 15:05 Freq: DAILY Status: Active Target: Protocol: Activity Type Activity Date Activity User E-Sign Co-Sign Detail Recorded Client Recorded Date Recorded By Document 11/09/18 14:54 [id number] 11/09/18 14:54 [id number] 11/09/18 14:54 PMRU Outcome: ADL's/ADL Transfers Orders/Interventions Occupational Therapy Evaluation & Treatment Communication Tool in Patient Room Patient to receive OT 5x/wk for 60-120 Therex min/day Self Care Management Group Therapy Neuromuscular ReEducation UE/LE ADL's with Assist Yes: mod I ADL Transfers with Assist Yes: mod I Toileting: Transfers,Clothing Management Yes: mod I ,Hygeine w/Assist Light Kitchen/Laundry w/Assist Yes Outcome/Goals Met 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 Pt's dynamic standing balance and endurance show significant improvement from last week. Pt able to perform several standing activities in addition to walking to/from his room without c/o fatigue or LOB. Cardiovascular- Improve/Maintain Start: 10/23/18 12:53 Freq: QSHIFT Status: Active Target: Protocol: Activity Type Activity Date Activity User E-Sign Co-Sign Detail Recorded Client Recorded Date Recorded By Document 11/10/18 02:42 [id number] 11/10/18 02:42 [id number] 11/10/18 02:42 PMRU Outcome: Cardiovascular Vital Signs q Shift for 48hrs Then BID Yes Daily Weight Ordered No Current Cardiovascular Outcome/Goal Maintain/ Achieve Baseline HR, BP , Perfusion Maintain/ Improve Perfusion Maintain/ Achieve Hemodynamic Stability Progression Toward Outcome/Goal Progressing Communication-Improve/Maintain Start: 10/23/18 12:53 Freq: DAILY Status: Active Target: Protocol: Activity Type Activity Date Activity User E-Sign Co-Sign Detail Recorded Client Recorded Date Recorded By Document 11/10/18 02:42 [id number] 11/10/18 02:42 [id number] 11/10/18 02:42 PMRU Outcome: Communication/Cognitive Status Outcome/Goals Makes Needs Known Effectively Other Outcomes/Goals Motor-speech Long-Term Goal: Pt will use compensatory strategies to I 'ly speak with 100% intelligibility . Status: Progressing as expected. Short-Term Goal 1: Pt will use compensatory strategies to control speech prosody (rate, stress, intonation) and sequencing ( clusters, multisyllabic words) to reduce cluttering and increase speech intelligibility to 95% in structured conversation and speech activities, given Moderate cueing. Status: Progressing as expected. Short-Term Goal 2: Pt will use compensatory articulation strategies to correct resonance and accurate articulation ( nasals, labial fricatives, liquids), to increase speech intelligibility to 95% in structured conversation and speech activities, given Moderate cueing. Status: Progressing as expected. Progression Toward Outcomes/Goals Progressing Coping/Psych-Improve/Maintain Start: 10/23/18 12:53 Freq: QSHIFT Status: Complete Target: Protocol: Activity Type Activity Date Activity User E-Sign Co-Sign Detail Recorded Client Recorded Date Recorded By Document 10/28/18 15:51 [id number] 10/28/18 15:52 [id number] 10/28/18 15:51 PMRU Outcome: Coping/Psychosocial Coping Outcome/Goals Verbalization of Acceptance of Rehab Admit Verbalization of Sense of Control Over Health Status Utilization of Appropriate Problem Solving Techniques Willingness to Participate in Treatment Plan and Basic Needs Utilization of Available Support Systems Psychosocial Outcome/Goals Demonstrates Knowledge of Healthy Coping Mechanisms Available Cooperate/ Participate in Plan Coping Outcome/Goals Met Demonstrates Understanding of Rehab Admit and Goal Setting Process Psychosocial Outcome/Goals Met Maintain/ Improved Emotional Health DVT Prophylaxis- Improve/Maintain Start: 10/23/18 12:53 Freq: QSHIFT Status: Active Target: Protocol: Activity Type Activity Date Activity User E-Sign Co-Sign Detail Recorded Client Recorded Date Recorded By Document 11/10/18 02:42 [id number] 11/10/18 02:42 [id number] 11/10/18 02:42 PMRU Outcome: DVT Prophylaxis Outcome/Goals Remains Free of DVT Complies with DVT Prophylaxis /Treatment TEDS Stockings on Every AM, Off at HS Progression Toward Outcome/Goals Progressing Discharge Planning - Improve/Maintain Start: 10/23/18 12:53 Freq: DAILY Status: Active Target: Protocol: Activity Type Activity Date Activity User E-Sign Co-Sign Detail Recorded Client Recorded Date Recorded By Document 11/10/18 02:42 [id number] 11/10/18 02:42 [id number] 11/10/18 02:42 PMRU Outcome: Discharge Planning Update Patient Family No Outcome/Goals Demonstrates Understanding of Discharge Plan Progression Toward Outcome/Goals Progressing Education-Improve/Maintain Start: 10/23/18 12:53 Freq: QSHIFT Status: Active Target: Protocol: Activity Type Activity Date Activity User E-Sign Co-Sign Detail Recorded Client Recorded Date Recorded By Document 11/10/18 02:42 [id number] 11/10/18 02:42 [id number] 11/10/18 02:42 PMRU Outcome: Education Outcome/Goals Encourage Questions Progression Toward Outcome/Goals Progressing Medication Administration Start: 10/23/18 12:53 Freq: QSHIFT Status: Active Target: Protocol: Activity Type Activity Date Activity User E-Sign Co-Sign Detail Recorded Client Recorded Date Recorded By Document 11/10/18 02:42 [id number] 11/10/18 02:42 [id number] 11/10/18 02:42 PMRU Outcome: Medication Administration Assess Patient Knowledge/Teach Med Yes Education for all Meds Outcome/Goals Patient Independent with Medication Administration at Home Demonstrates Understanding Progression Towards Outcome/Goals Progressing Is Patient Going Home on Lovenox? No Neurological- Improve/Maintain Start: 10/23/18 12:53 Freq: QSHIFT Status: Active Target: Protocol: Activity Type Activity Date Activity User E-Sign Co-Sign Detail Recorded Client Recorded Date Recorded By Document 11/10/18 02:42 [id number] [id number] 11/10/18 02:42 [id number] 11/10/18 02:42 PMRU Outcome: Neurological Weakness/Aphasia Weakness Right Side Outcome/Goals Improve Neurological Status Prevent Avoidable Neurological Decline Demonstrate Knowledge of Prevention/Tx of Neuro Disorders/ Complication Maintain/ Improve Strength/ROM Progression Toward Outcome/Goals Progressing Nutrition/Swallowing- Improve/Maintain Start: 10/23/18 12:53 Freq: QSHIFT Status: Complete Target: Protocol: Activity Type Activity Date Activity User E-Sign Co-Sign Detail Recorded Client Recorded Date Recorded By Document 10/28/18 15:51 [id number] 10/28/18 15:52 [id number] 10/28/18 15:51 PMRU Outcome: Nutrition/Swallowing Outcome/Goals Demonstrates Adequate Hydration/ Prevents Dehydration Maintain/ Improve Nutritional Status Outcome/Goals Met Demonstrates Adequate Hydration/ Prevents Dehydration Maintain/ Improve Nutritional Status Safety- Improve/Maintain Start: 10/23/18 12:53 Freq: QSHIFT Status: Active Target: Protocol: Activity Type Activity Date Activity User E-Sign Co-Sign Detail Recorded Client Recorded Date Recorded By Document 11/10/18 02:42 [id number] [email or web address] 11/10/18 02:42 [id number] 11/10/18 02:42 PMRU Outcome: Safety Outcome/Goals Remain Free of Injury or Harm Cooperates with Safety Measures for Least Restrictive Environment Prevent Falls/ Injury Progression Toward Outcome/Goals Progressing Medicine Note: Length of Stay: 1 day Anticipated Discharge Destination: Home Tentative Discharge Date: 11/11/18 Discharged to: Home
[2018-11-10] MEDS: Rivaroxaban TAB(*) 20 MG TAB PO SCH (17:45)
[2018-11-10] MEDS: Atorvastatin* 20 MG TAB PO SCH (17:46)
--- NOTE | 2018-11-10 19:15 | PN ---
Progress Note Date of Service: 11/10/18 Note: ELIZABETH SOLORZANO was visited. Therapy notes read and reviewed. He was discussed in interdisciplinary team rounds. Ready for discharge in the morning. Current Medications: Active Medications Generic Name Dose Route Start Last Admin Trade Name Freq PRN Reason Stop Dose Admin Acetaminophen 650 mg 10/23/18 11:10 11/09/18 22:12 Tylenol Tab* PO 650 mg Q6H PRN Administration FEVER > 101 Atorvastatin Calcium 20 mg 10/23/18 17:00 11/10/18 17:46 Lipitor* PO 20 mg 1700 GUIDO Administration Bisacodyl 10 mg 10/23/18 11:10 Dulcolax Supp* [place] DAILY PRN CONSTIPATION Clopidogrel Bisulfate 75 mg 10/24/18 09:00 11/10/18 09:25 Plavix Tab* PO 75 mg DAILY GUIDO Administration Docusate Sodium 100 mg 10/23/18 21:00 11/10/18 09:26 Colace Cap* PO Not Given BID GUIDO Melatonin 3 mg 10/23/18 11:21 11/09/18 21:14 Melatonin PO 3 mg BEDTIME PRN Administration SLEEP Midodrine 5 mg 11/07/18 16:00 Midodrine (Nf) PO TID PRN SPB < 100 Protocol Pantoprazole Sodium 40 mg 10/24/18 09:00 11/10/18 09:26 Protonix Tab* PO 40 mg DAILY GUIDO Administration Polyethylene Glycol/Electrolytes 17 gm 10/23/18 11:22 11/03/18 17:17 Miralax* PO 17 gm DAILY PRN Administration CONSTIPATION Rivaroxaban 20 mg 10/23/18 17:00 11/10/18 17:45 Xarelto(*) PO 20 mg 1700 GUIDO Administration Senna 2 tab 10/23/18 11:10 10/28/18 20:56 Senokot Tab* PO 2 tab BEDTIME PRN Administration CONSTIPATION Trazodone HCl 50 mg 10/23/18 11:20 11/09/18 22:12 Desyrel Tab* PO 50 mg BEDTIME PRN Administration INSOMNIA Vital Signs: Vital Signs Temp Pulse Resp BP Pulse Ox 97.8 F 76 20 135/72 100 11/10/18 16:18 11/10/18 16:18 11/10/18 17:01 11/10/18 16:18 11/10/18 17:01 Exam: GENERAL: no acute distress. alert and appropriate. Dysarthria LUNGS: clear to auscultation bilaterally HEART: regular rate and rhythm ABDOMEN: + bowel sounds, soft, non-tender, non-distended. EXTREMITIES: no edema NEUROLOGIC: Right facial droop. RUE/RLE motor 4+/5 throughout with normal sensation. 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 Left CVA: PT/OT/DREDGE CAPTAIN. 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 Lipitor. Now tolerating lower BPs without additional symptoms. 2. Orthostatic and postprandial hypotension with h/o dumping syndrome: small frequent meals. Midodrine 5mg prn. Will not give at d/c as he hasn't used. 3. History of PE and DVT prophylaxis: Xarelto 20mg qday 4. Insomnia: melatonin and trazodone prn. 5. Advanced Directives: is hcp. Full code 11/10/18 19:15 11/10/18 19:16
[2018-11-10] MEDS: Melatonin 3 MG TAB PO PRN (20:41)
[2018-11-10] MEDS: Acetaminophen TAB* 325 MG PO PRN (20:41)
[2018-11-10] MEDS: traZODone TAB* 50 MG TAB PO PRN (22:14)
[2018-11-11 05:22] LABS: ABS Basophils 0.1 10^3/ul (0-0.2); ABS Eosinophils 0.2 10^3/ul (0-0.6); ABS Lymphocytes 1.6 10^3/ul (1.0-4.8); ABS Monocytes 0.7 10^3/ul (0-0.8); ABS Nucleated RBC 0 10^3/ul; Eosinophil % 2.4 %; Hematocrit 43 % (36-46); Hemoglobin 14.1 g/dL (14.0-18.0); Lymphocyte % 24.2 %; Mean Corpuscular HGB Conc 33 g/dL (31-36); Mean Corpuscular Hemoglobin 28 pg (27-31); Mean Corpuscular Volume 86 fL (80-94); Mean Platelet Volume 7.5 fL (7.4-10.4); Nucleated Red Blood Cells % 0.1; Platelet Count 498 10^3/uL (150-450); Red Blood Count 5.02 10^6 /uL (4.18-5.48); Red Cell Distribution Width 16 % (10.5-15); White Blood Count 6.6 10^3/uL (3.5-10.8)
[2018-11-11 05:41] LABS: Albumin 3.6 g/dL (3.2-5.2); Albumin/Globulin Ratio 1.1 (1-3); BUN/Creatinine Ratio 18.8 (8-20); Calcium 9.2 mg/dL (8.6-10.3); EGFR African American 94.3 (>60); EGFR Non-African American 77.9 (>60); Globulin 3.2 g/dL (2-4); Potassium 4.1 mmol/L (3.5-5.0); Total Bilirubin 0.4 mg/dL (0.2-1.0); Total Protein 6.8 g/dL (6.4-8.9)
[2018-11-11 06:15] VITALS: BP 106/63
[2018-11-11] MEDS: Clopidogrel TAB* 75 MG PO SCH (09:41)
[2018-11-11] MEDS: Docusate CAP* 100 MG PO SCH (09:41)
[2018-11-11] MEDS: Pantoprazole TAB * 40 MG TAB PO SCH (09:41)
--- NOTE | 2018-11-12 02:14 | DS ---
CC: Dr. Adrian Carbajal* DISCHARGE SUMMARY: DATE OF ADMISSION: 10/23/18 DATE OF DISCHARGE: 11/11/18 DISCHARGE DIAGNOSES: 1. 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 2. Postprandial hypotension with worsening of stroke symptoms. 3. Possible dumping syndrome after esophagectomy for esophageal cancer. 4. History of pulmonary embolus. 5. History of esophageal cancer. 6. Insomnia. HISTORY OF ILLNESS AND HOSPITAL COURSE: For complete history of the events leading up to his rehab stay, please see the history and physical dictated by Dr. Vita Diaz on 10/23/18. While on the rehab unit, to avoid episodes of hypotension, the patient's legs were Sathya wrapped and he was given an abdominal binder. As he spent more time upright, however, his symptomatology became less and less severe with lower blood pressure and he began to tolerate having blood pressures without worsening of his stroke symptoms. The patient's abdominal binder and later his Sathya wraps were discontinued. He was kept on Xarelto and Plavix for secondary stroke prevention. This was to continue for 30 days and then he will change to Xarelto and aspirin. He was on midodrine for his orthostatic hypotension and this eventually was discontinued. The patient otherwise was medically stable. He was seen by Physical Therapy and Occupational Therapy while on the rehab unit. He was also seen by Speech Therapy. He made good gains with all 3 disciplines. With physical therapy, at the time of admission, the patient required minimum assist to do a transfer, he was unable to ambulate. With occupational therapy, at the time of admission, the patient required moderate assist for toilet transfers, minimum assist for lower body dressing, supervision for upper body dressing. By the time of discharge, the patient was independent in his activities of daily living. He was independent toileting, independent toilet transfers, independent transferring with physical therapy, independent ambulating over 1000 feet. The patient was also seen by Speech Therapy. He has a significant dysarthria noted when he first came to Rehab. He was able to tolerate a regular diet. By the time of discharge, the patient was 98% intelligible with speech therapy. The patient was discharged home on 11/11/18. DISCHARGE DIET: Regular. DISCHARGE MEDICATIONS: 1. Lipitor 20 mg daily. 2. Plavix 75 mg daily for 12 days. After the Plavix is discontinued, he should go back on a baby aspirin daily. 3. Protonix 40 mg daily. 4. Xarelto 20 mg daily. SERVICES AFTER DISCHARGE: Through [facility]. He will have home nursing, home physical therapy, and a home health aide. Follow up with Dr. Villanueva from Neurology as well as with Dr. Adrian Carbajal. [id number]/[facility] #: [id number] SANDRITA
== END 2018-11-11 12:00 | disposition home health service (06) | DRG 57 ==
LOC: PMRU 12:08
PROVIDERS: ADMIT Physical Medicine & Rehabilitation; ATTEND Physical Medicine & Rehabilitation
PROC: F07Z5ZZ Bed Mobility Treatment (ICD-10-PCS; principal; 2018-10-23)
PROC: F07Z9ZZ Gait Training/Functional Ambulation Treatment (ICD-10-PCS; 2018-10-23)
PROC: F07Z8ZZ Transfer Training Treatment (ICD-10-PCS; 2018-10-23)
PROC: F07Z4ZZ Wheelchair Mobility Treatment (ICD-10-PCS; 2018-10-23)
PROC: F08Z0ZZ Bathing/Showering Techniques Treatment (ICD-10-PCS; 2018-10-23)
PROC: F08Z1ZZ Dressing Techniques Treatment (ICD-10-PCS; 2018-10-23)
PROC: F08Z3ZZ Feeding/Eating Treatment (ICD-10-PCS; 2018-10-23)
PROC: F06Z8ZZ Motor Speech Treatment (ICD-10-PCS; 2018-10-23)
DX: I69.351 Hemiplegia and hemiparesis following cerebral infarction affecting right dominant side (principal); I95.89 Other hypotension; K91.1 Postgastric surgery syndromes; G47.00 Insomnia, unspecified; I95.1 Orthostatic hypotension; Z86.711 Personal history of pulmonary embolism; Z85.01 Personal history of malignant neoplasm of esophagus; I69.322 Dysarthria following cerebral infarction; Z79.01 Long term (current) use of anticoagulants; Z79.1 Long term (current) use of non-steroidal anti-inflammatories (NSAID); Z79.02 Long term (current) use of antithrombotics/antiplatelets; Z79.899 Other long term (current) drug therapy; Z85.528 Personal history of other malignant neoplasm of kidney; Z87.81 Personal history of (healed) traumatic fracture; Z80.1 Family history of malignant neoplasm of trachea, bronchus and lung; Z80.0 Family history of malignant neoplasm of digestive organs; I69.392 Facial weakness following cerebral infarction
CPT/HCPCS: 36415; 80053; 85025; A9270-GY; G0515-GO

== ENCOUNTER 2019-07-28 09:08 | Emergency (ER) | payer MEDICARE ==
[2019-07-28] MEDS ORDERED: Nitroglycerin TAB 0.4 MG* 0.4 MG TAB SL ONE (09:17)
[2019-07-28] MEDS ORDERED: Aspirin 81 mg CHEW TAB* 81 MG TAB.CHEW PO ONE (09:18)
--- NOTE | 2019-07-28 09:20 | UC ---
Cardiac HPI - HPI Summary HPI Summary: 68 yo man with past esophageal cancer and past stroke, awoke at 6 am with chest pain and mild shortness of breath. States no previous cardiac history. Stroke occurred when he stopped xarelto, and he has mild right sided weakness as a result of this. He gets occasional reflux following esophagectomy, but does not feel that is active today. He did sleep in a bad position on a couch today. - History of Current Complaint Stated Complaint: CHESTPAIN Hx Obtained From: Patient Onset/Duration: Sudden Onset, Lasting Hours Initial Severity: Moderate Current Severity: Moderate Chest Pain Location: Mid Sternal, Upper Sternal Character: Tightness, Pressure/Squeezing Aggravating Factor(s): Exertion, Position Alleviating Factor(s): Rest, NTG 123 - first ntg at [facility] gave some relief. Associated Signs & Symptoms: Positive: Chest Pain - Risk Factors Pulmonary Embolism Risk Factors: Previous PE Atrial Fibrillation: Pulmonary Embolism - Allergy/Home Medications Allergies/Adverse Reactions: Allergies Allergy/AdvReac Type Severity Reaction Status Date / Time Sulfa (Sulfonamide Allergy Swelling Verified 02/18/19 08:10 Antibiotics) Of Face,Lips,& Throat PMH/Surg Hx/FS Hx/Imm Hx Endocrine History: Dyslipidemia Neurological History: CVA Cancer History: Other - esophageal cancer 10 years ago. - Surgical History Surgical History: Yes Surgery Procedure, Year, and Place: Esophageal removed (2004) Right kidney tumor removed, partial nechrectomy (2007), excision of skin lesion (2016), DVT filter 10 years ago - Family History Known Family History: Positive: Hypertension, Other - Esophageal Cancer - Social History Occupation: Retired Alcohol Use: Occasionally Alcohol Amount: 2-3 beers/day Substance Use Type: Marijuana Substance Use Comment - Amount & Last Used: 3 months ago marijuana Smoking Status (MU): Never Smoked Tobacco Have You Smoked in the Last Year: No - Immunization History Most Recent Influenza Vaccination: 2018 Most Recent Pneumonia Vaccination: patient states 2018 Review of Systems All Other Systems Reviewed And Are Negative: Yes Constitutional: Positive: Fatigue Skin: Positive: Negative Eyes: Positive: Negative ENT: Positive: Negative Respiratory: Positive: Shortness Of Breath Cardiovascular: Positive: Chest Pain Gastrointestinal: Positive: Negative. Negative: Nausea Genitourinary: Positive: Negative Motor: Positive: Negative Neurovascular: Positive: Negative Musculoskeletal: Positive: Negative Neurological: Positive: Negative Psychological: Positive: Negative Is Patient Immunocompromised?: No Physical Exam Triage Information Reviewed: Yes Appearance: Ill-Appearing - looks chronically unwell, older than age., Pain Distress - moderate initially. Eyes: Positive: Conjunctiva Clear ENT: Positive: Pharynx normal Neck: Positive: Supple, Nontender, No Lymphadenopathy Respiratory: Positive: Lungs clear, Normal breath sounds Cardiovascular: Positive: RRR, No Murmur Abdomen Description: Positive: Nontender, No Organomegaly, Soft Musculoskeletal Exam: Normal Musculoskeletal: Positive: Edema @ - trace edema both lower legs Neurological Exam: Normal Neurological: Positive: Alert, Muscle Tone Normal Psychological Exam: Normal Skin Exam: Normal Diagnostics - EKG Cardiac Rate: NL Cardiac Rhythm: Sinus: Normal Ectopy: None ST Segment: Non-Specific EKG Comparison: No Significant Change - compared to EKG 2017. - Assessment/Plan Course Of Treatment: Given nitroglycerine and aspirin with some relief of pain. Remains short of breath and given oxygen when saturations decreased to 90 to 92T. Will transfer to ER. - Differential Diagnoses - Chest Pain Differential Diagnosis/HQI/PQRI: Acute ME, ACS, Angina, Pulmonary Embolism - Clinical Impression Provider Diagnosis: Chest pain Discharge ED - Sign-Out/Discharge Documenting (check all that apply): Patient Departure All imaging exams completed and their final reports reviewed: No Studies - Discharge Plan Condition: Stable Disposition: TRANS HIGHER LVL OF CARE FAC Referrals: Adrian Carbajal MD [Primary Care Provider] - - Billing Disposition and Condition Condition: STABLE Disposition: Trans Higher Lvl of Care Fac
[2019-07-28 09:43] VITALS: BP 134/76
== END 2019-07-28 09:55 | disposition short-term general hospital (02) ==
LOC: UCEAST 09:08
DX: R07.9 Chest pain, unspecified (principal); Z85.01 Personal history of malignant neoplasm of esophagus; Z88.2 Allergy status to sulfonamides; Z86.73 Personal history of transient ischemic attack (TIA), and cerebral infarction without residual deficits; R06.02 Shortness of breath; R53.83 Other fatigue
CPT/HCPCS: 93005; 99204; A9270-GY; G0463

== ENCOUNTER 2019-07-28 10:18 | Observation (INO) | payer MEDICARE ==
--- NOTE | 2019-07-28 10:30 | ED ---
HPI Chest Pain - HPI Summary HPI Summary: This patient is a 68 year old male with a Hx of CVA brought in by EMS from [facility] presenting to [facility] with a chief complaint of chest pain and SOB. He states he woke up with the pain 6 hours ago and figured he had slept wrong, then realized he could not take a breath without having pain and it became more difficult to breath. He states the pain was constant but was given Aspirin and Nitro at [facility] and this helped relieve the pain. He states he takes Xarelto for DVTs and had his CVA after he stopped taking it at one point in time. Medications reviewed, allergies noted. - History of Current Complaint Hx Obtained From: Patient Onset/Duration: Started Hours Ago Chest Pain Location: Right Anterior - Additional Pertinent History Primary Care Physician: VANESSA - Allergy/Home Medications Allergies/Adverse Reactions: Allergies Allergy/AdvReac Type Severity Reaction Status Date / Time Sulfa (Sulfonamide Allergy Swelling Verified 07/28/19 10:35 Antibiotics) Of Face,Lips,& Throat Home Medications: Home Medications Atorvastatin* [Lipitor 20 MG*] 20 mg PO DAILY 07/28/19 [History Confirmed ] Rivaroxaban TAB(*) [Xarelto 20 mg] 20 mg PO DAILY 07/28/19 [History Confirmed ] Sertraline* [Zoloft*] 100 mg PO DAILY 07/28/19 [History Confirmed 07/28/19] PMH/Surg Hx/FS Hx/Imm Hx Endocrine/Hematology History: Denies: Hx Diabetes, Hx Thyroid Disease Cardiovascular History: Reports: Hx Hypotension - orthostatic, Other Cardiovascular Problems/Disorders - 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 Denies: Hx Hypertension Respiratory History: Reports: Hx Pulmonary Embolism - history of blood clots 8 years ago, Other Respiratory Problems/Disorders - lung nodules Denies: Hx Asthma, Hx Chronic Obstructive Pulmonary Disease (COPD) GI History: Reports: Hx Gastroesophageal Reflux Disease, Other GI Disorders - esophageal cancer Denies: Hx Ulcer History: Reports: Other Problems/Disorders - kidney cancer Musculoskeletal History: Reports: Hx Back Problems, Hx Orthopedic Injury - r tib /fib, ankle fracture Sensory History: Denies: Hx Cataracts, Hx Contacts or Glasses, Hx Hearing Aid Opthamlomology History: Denies: Hx Cataracts, Hx Contacts or Glasses Neurological History: Reports: Hx Transient Ischemic Attacks (TIA) Denies: Hx Headaches, Hx Migraine, Hx Nerve Disease, Hx Seizures Psychiatric History: Reports: Hx Anxiety - over present situation, Hx Depression - occasional - Cancer History Cancer Type, Location and Year: hx esophageal cancer-12 years ago. kidney-10 years ago. Hx of CVA Hx Chemotherapy: Yes Hx Radiation Therapy: Yes - Surgical History Surgery Procedure, Year, and Place: Esophageal removed (2004) Right kidney tumor removed, partial nechrectomy (2007), excision of skin lesion (2016), DVT filter 10 years ago Hx Anesthesia Reactions: No Infectious Disease History: Denies: Hx Hepatitis, Hx Human Immunodeficiency Virus (HIV) - Family History Known Family History: Positive: Hypertension, Other - Esophageal Cancer - Social History Alcohol Use: Occasionally Alcohol Amount: 2-3 beers/day Substance Use Type: Reports: Marijuana Substance Use Comment - Amount & Last Used: 3 months ago marijuana Smoking Status (MU): Never Smoked Tobacco Have You Smoked in the Last Year: No Review of Systems Positive: Chest Pain Positive: Shortness Of Breath All Other Systems Reviewed And Are Negative: Yes Physical Exam - Summary Physical Exam Summary: Constitutional: Well-developed, Well-nourished, Alert. (-) Distressed Skin: Warm, Dry HENT: Normocephalic; Atraumatic Eyes: Conjunctiva normal Neck: Musculoskeletal ROM normal neck. (-) JVD, (-) Stridor, (-) Tracheal deviation Cardio: Rhythm regular, rate normal, Heart sounds normal; Intact distal pulses; Radial pulses are 2+ and symmetric. (-) Murmur Pulmonary/Chest wall: Effort normal. (-) Respiratory distress, (-) Wheezes, (-) Rales Abd: Soft, (-) tenderness, (-) Distension, (-) Guarding, (-) Rebound Musculoskeletal: (-) Edema; Good pulses bilaterally in radius, No calf tenderness, No venous cords, No pain with dorsiflexion of foot Lymph: (-) Cervical adenopathy Neuro: Alert, Oriented x3 Psych: Mood and affect Normal Triage Information Reviewed: Yes Vital Signs On Initial Exam: Temp Pulse Resp BP Pulse Ox 98.2 F 92 26 153/87 96 07/28/19 10:30 07/28/19 11:05 07/28/19 11:05 07/28/19 11:05 07/28/19 11:05 Vital Signs Reviewed: Yes Procedures - Sedation Patient Received Moderate/Deep Sedation with Procedure: No Diagnostics - Laboratory Result Diagrams: 07/28/19 10:46 07/28/19 10:46 Lab Statement: Any lab studies that have been ordered have been reviewed, and results considered in the medical decision making process. - Radiology CXR Radiology Interpretation Completed By: Radiologist Summary of Radiographic Findings: No active cardiopulmonary disease is noted. Postoperative changes are noted. ED Provider has reviewed this report. - EKG 1026 Cardiac Rate: NL - 87 BPM EKG Rhythm: Sinus Rhythm Summary of EKG Findings: RBBB, First Degree Heart Block, No evidence for STEMI. ED Physician has reviewed and interpreted this EKG. Re-Evaluation - Re-Evaluation First Eval Re-Evaluation Time: 12:28 Comment: Chest pain is coming back so we will give him nitroglycerin and admit him to the hospital. Chest Pain Course/Dx - Course Course Of Treatment: Patient is here with chest pain that was relieved by nitroglycerin. Patient received aspirin and [facility]in [facility]. Patient had an EKG which no evidence of ischemic changes. Patient had negative troponin. Patient does have a history of PE but is on xarelto and has an IVC filter in place. Given patient's heart score of 4 and no history of stress test , patient is admitted to the hospital - Diagnoses Provider Diagnoses: Chest pain, SOB (shortness of breath) Discharge ED - Sign-Out/Discharge Documenting (check all that apply): Patient Departure - Admission, accepted by Dr. Madera, Hospitalist - Discharge Plan Condition: Stable Disposition: ADMITTED TO [facility] Referrals: Adrian Carbajal MD [Primary Care Provider] - - Billing Disposition and Condition Condition: STABLE Disposition: Admitted to [facility] - Attestation Statements Document Initiated by Korina: Yes Documenting Scribe: Doug Jara Provider For Whom Korina is Documenting (Include Credential): Ashkan Quinteros MD Scribe Attestation: Dogu Machado, scribed for Ashkan Quinteros MD on 07/28/19 at 1558. Scribe Documentation Reviewed: Yes Provider Attestation: The documentation as recorded by the Doug guajardo accurately reflects the service I personally performed and the decisions made by , Ashkan Quinteros MD Status of Scribe Document: Viewed
[2019-07-28 11:02] LABS: ABS Lymphocytes 0.7 10^3/ul (1.0-4.8); ABS Monocytes 1.4 10^3/ul (0-0.8); ABS Neutrophils 10.6 10^3/ul (1.5-7.7); Eosinophil % 0.1 %; Hematocrit 42 % (42-52); Hemoglobin 13.9 g/dL (14.0-18.0); Lymphocyte % 5.5 %; Mean Corpuscular HGB Conc 33 g/dL (31-36); Mean Corpuscular Hemoglobin 29 pg (27-31); Mean Corpuscular Volume 88 fL (80-94); Mean Platelet Volume 6.8 fL (7.4-10.4); Nucleated Red Blood Cells % 0.1; Platelet Count 392 10^3/uL (150-450); Red Blood Count 4.74 10^6 /uL (4.18-5.48); Red Cell Distribution Width 15 % (10-15); White Blood Count 12.8 10^3/uL (3.5-10.8)
[2019-07-28 11:10] LABS: Activated Partial Thrombo Time 31.5 seconds (26.0-38.0); INR 1.03 (0.82-1.09)
[2019-07-28 11:26] LABS: Albumin/Globulin Ratio 1.4 (1-3); Calcium 8.7 mg/dL (8.6-10.3); EGFR African American 116.3 (>60); EGFR Non-African American 96.1 (>60); Globulin 2.8 g/dL (2-4); Potassium 4.9 mmol/L (3.5-5.0); Total Bilirubin 0.5 mg/dL (0.2-1.0); Total Protein 6.8 g/dL (6.4-8.9)
[2019-07-28 11:28] LABS: Troponin I 0.01 ng/mL (<0.03)
[2019-07-28] MEDS ORDERED: Nitroglycerin TAB 0.4 MG* 0.4 MG TAB SL ONE (12:28)
[2019-07-28] MEDS ORDERED: Iodixanol* (CONTRAST) 320 MG/ML 100 ML SDV IV ONE (14:44)
[2019-07-28 15:11] LABS: Magnesium 1.6 mg/dL (1.9-2.7)
[2019-07-28 15:12] LABS: TSH (Thyroid Stimulating Horm) 0.39 mcIU/mL (0.34-5.60)
[2019-07-28] MEDS ORDERED: Magnesium Sulfate 2 GM IV* 2 GM/50 ML BAG IVPB ONE (15:24)
[2019-07-28] MEDS ORDERED: Al Hydrox/Mg Hydrox/Simet LIQ* 30 ML UDC PO PRN (15:47)
[2019-07-28] MEDS ORDERED: Nitro 2% OINT* (Nitroglycerin) 1 INCH/PAK PAK TOPICAL ONE (15:57)
[2019-07-28 18:26] LABS: Troponin I 0.02 ng/mL (<0.03)
[2019-07-28] MEDS ORDERED: Melatonin 3 MG TAB PO PRN (20:25)
[2019-07-28] MEDS ORDERED: Atorvastatin* 20 MG TAB PO SCH (21:00)
--- NOTE | 2019-07-28 21:37 | HP ---
CC: Dr. Carbajal * HISTORY AND PHYSICAL: DATE OF ADMISSION: 07/28/19. PROVIDER: Vita Acosta NP. PRIMARY CARE PROVIDER: Dr. Carbajal. ATTENDING PHYSICIAN WHILE IN THE HOSPITAL: Dr. Joanna Madera * (dictated by Vita Acosta NP). CHIEF COMPLAINT: Chest pain. HISTORY OF PRESENT ILLNESS: Mr. Chambers is a 68-year-old male with a past medical history significant for pulmonary embolism, esophageal cancer, status post esophagectomy, history of kidney cancer, status post partial nephrectomy, hypertension, history of CVA, who presented to the emergency room with complaints of chest pain. The patient reports that he woke up this morning at 4 a.m., complaining of chest pain. He reports that it hurts to take a deep breath. The patient reports that he was eventually able to get comfortable, went back to bed, again woke at 7 o'clock this morning. Continued to have chest pain in his upper chest that radiated between the shoulder blades. He reports the pain as a pressure in his chest that initially rated at 7, decreased to 5 with nitroglycerin. He denied any associated nausea, vomiting, shortness of breath, or diaphoresis. The patient reports that it felt like he had been hit in the chest. Reports that the pain was worse with deep breath. He denies any cough, hemoptysis. Denies any recent fever or chills. Denies any nausea, vomiting, diarrhea, abdominal pain, hematuria, dysuria. Denies any focal weakness, sensory loss, visual complaints, dysphagia, arthralgias, myalgias, rashes, lesions, open sores, psychosis, or anxiety. While in the emergency room, the patient had routine lab work drawn. His initially troponin was 0.01. He continued to have chest pain. He did receive nitroglycerin, which improved his chest pain. He also prior to arrival received 324 mg of aspirin. Due to his chest pain, hospital Medicine was asked to see and evaluate him for admission. PAST MEDICAL HISTORY: Significant for: 1. Pulmonary embolism. 2. Esophageal cancer, status post esophagectomy. 3. Kidney cancer, status post partial nephrectomy. 4. Hypertension. 5. CVA. PAST SURGICAL HISTORY: 1. IVC filter placement. 2. Esophagectomy, 11 years ago. 3. Partial nephrectomy. HOME MEDICATIONS: Include: 1. Zoloft 100 mg p.o. daily. 2. Xarelto 20 mg p.o. daily. 3. Atorvastatin 20 mg p.o. daily. ALLERGIES: SULFA. FAMILY HISTORY: No reported history of coronary artery disease or diabetes. Mother of lung cancer at the age of 76. Father from esophageal cancer at the age of 74. SOCIAL HISTORY: The patient denies any tobacco. He does report he drinks approximately 2 beers daily. Does report occasional marijuana use. He is . He lives with his . Surrogate decision maker in the event he is unable to make his own decisions is his . He is a full code. REVIEW OF SYSTEMS: A 14-point review of systems was completed. All pertinent positives were mentioned in the HPI. PHYSICAL EXAMINATION GENERAL: At this time, Mr. Chambers is alert and oriented, resting on the stretcher in the emergency room. He is in no acute distress. VITAL SIGNS: Blood pressure 153/94, heart rate 103, respirations 16, O2 saturation 97% on room air, temperature was 97.1. HEENT: Head is atraumatic, normocephalic. Eyes: EOMs are intact. Sclerae are anicteric, not pale. Oral mucosa is moist. NECK: Supple. LUNGS: Clear to auscultation bilaterally. No wheezes, rales, or rhonchi. CARDIAC: S1, S2. Regular rate and rhythm. No murmurs, rubs, or gallops. ABDOMEN: Soft and nontender. Bowel sounds are present x4. EXTREMITIES: He is able to move all 4 extremities. There is no clubbing or cyanosis. NEUROLOGIC: He is awake, alert, oriented x3. Speech is clear. Thought process is intact. There are no gross focal deficits. DIAGNOSTIC STUDIES/LAB DATA: WBCs are 12.8, RBCs 4.74, hemoglobin 13.9, platelet count was 393. INR 1.03, aPTT was 31.5. Sodium 138, potassium 4.9, chloride 106, carbon dioxide is 23, anion gap was 9. BUN was 12, creatinine 0.80, glucose was 113, magnesium 1.6. ASTs were 18, ALTs were 12, alkaline phosphatase was 72. Troponin was 0.01 x2 and 0.02. TSH was 0.39. He had a chest x-ray, radiologist's impression: No active cardiopulmonary disease, postoperative changes. He had a CTA of the chest and thorax. Negative for aneurysm or dissection of the thoracic aorta. Coronary artery calcification, no evidence of local esophageal tumor, recurrence of thoracic metastasis. No evidence of acute intrathoracic disease. He had an electrocardiogram, which showed sinus rhythm at a rate of 87 with the right bundle-branch block. T wave inversions in V1. He had a repeat EKG that showed sinus tachycardia at a rate of 100, the right bundle-branch block with ST changes in V1, V2, and V3. Mild ST elevation in lead 3. ST depression and biphasic T's in V2 and V3. ASSESSMENT AND PLAN: Mr. Chambers is a 68-year-old male, who presented to the emergency room with complaints of chest pain, history of pulmonary embolism, esophageal cancer, kidney cancer, hypertension, and a history of cerebrovascular accident. He will be admitted under observation for: 1. Chest pain. HEART score is a 5 giving him 12-16.6 risk of adverse cardiac event. I will get a nuclear stress test. The patient has received aspirin 324 mg prior to arrival. We will continue him on aspirin 81 mg p.o. daily. The patient did have chest pain in the emergency room. I placed Nitro paste half an inch to his chest wall with complete resolution of his chest pain. We will continue to trend his troponins and monitor on telemetry . I repeat an EKG in the a.m. If his troponin should become positive, we will have a formal Cardiology consult in the a.m. Will also continue statin. Addendum: Spoke to Dr. Sauh about EKG changes, will continue to trend troponins and repeat EKG in the AM. Will give 1 dose of metoprolol. 2. History of pulmonary embolism. The patient did have a CT of the chest, which showed no acute dissection or aneurysm. We will continue the patient on Xarelto 20 mg p.o. daily. 3. History of depression. He will continue on Zoloft for 100 mg p.o. daily. 4. History of cerebrovascular accident. The patient will continue on Xarelto and atorvastatin as previously prescribed. 5. FEN: He could have a heart healthy. No caffeine diet. 6. Code status: He is a full code. 7. DVT prophylaxis: We will continue him on Xarelto. TIME SPENT: Time spent on this admission was 60 minutes, greater than half that time was spent at the bedside reviewing events leading thus far to his hospitalization, performing physical exam, and reviewing my plan of care. I have discussed this with my attending, Dr. Joanna Madera, she is in agreement with my plan. VITA ACOSTA, KRISTEN [id number]/[facility] #: [id number] SANDRITA
[2019-07-28] MEDS: Acetaminophen TAB* 325 MG PO PRN (21:50)
[2019-07-28] MEDS ORDERED: Metoprolol Tartrate TAB* 25 MG PO ONE (22:05)
[2019-07-29] MEDS: Acetaminophen TAB* 325 MG PO PRN (04:28)
[2019-07-29 07:32] LABS: Calcium 9.3 mg/dL (8.6-10.3); Potassium 4.5 mmol/L (3.5-5.0)
[2019-07-29 07:38] LABS: BUN/Creatinine Ratio 14.1 (8-20); EGFR African American 119.8 (>60); HDL Cholesterol 84.9 mg/dL
[2019-07-29] MEDS ORDERED: Regadenoson* 0.4 MG/5 ML SYRINGE ONE (08:25)
[2019-07-29] MEDS ORDERED: Rivaroxaban TAB(*) 20 MG TAB PO SCH (08:30)
[2019-07-29] MEDS ORDERED: Aminophylline IV* 25 MG/ML 10 ML VIAL ONE (08:34)
[2019-07-29] MEDS ORDERED: Aspirin EC TAB* 81 MG TAB.EC PO SCH (09:00)
[2019-07-29] MEDS ORDERED: Sertraline* 100 MG TAB PO SCH (09:00)
[2019-07-29] MEDS ORDERED: Magnesium Sulfate 2 GM IV* 2 GM/50 ML BAG IVPB ONE (09:28)
[2019-07-29 12:10] LABS: Hematocrit 40 % (42-52); Hemoglobin 13.5 g/dL (14.0-18.0); Mean Corpuscular HGB Conc 34 g/dL (31-36); Mean Corpuscular Hemoglobin 30 pg (27-31); Mean Corpuscular Volume 87 fL (80-94); Platelet Count 414 10^3/uL (150-450); Red Blood Count 4.56 10^6 /uL (4.18-5.48); Red Cell Distribution Width 15 % (10-15); White Blood Count 8.5 10^3/uL (3.5-10.8)
[2019-07-29 12:20] VITALS: BP 168/96
[2019-07-29 12:39] LABS: ABS Basophils 0.1 10^3/ul (0-0.2); ABS Lymphocytes 1.3 10^3/ul (1.0-4.8); ABS Monocytes 1.2 10^3/ul (0-0.8); ABS Neutrophils 5.9 10^3/ul (1.5-7.7); Eosinophil % 0.3 %; Lymphocyte % 14.8 %
[2019-07-29 15:39] LABS: Urine Appearance Clear; Urine Bilirubin Negative (Negative); Urine Blood 1+ (Negative); Urine Color Yellow; Urine Glucose Negative (Negative); Urine Ketones Negative (Negative); Urine Nitrite Negative (Negative); Urine Protein Negative (Negative); Urine Specific Gravity 1.012 (1.010-1.030); Urine Urobilinogen Negative (Negative)
[2019-07-29 16:00] LABS: Urine Bacteria Absent (Absent); Urine Red Blood Cell 1+(3-5/hpf) (Absent); Urine White Blood Cell Trace(0-5/hpf) (Absent)
--- NOTE | 2019-07-29 20:19 | DS ---
DISCHARGE SUMMARY: DATE OF ADMISSION: 07/28/19 DATE OF DISCHARGE: 07/29/19 PROVIDER: Ezra Carlisle NP ATTENDING PHYSICIAN: Dr. Vigil.* (DICTATED BY EZRA CARLISLE NP) PRIMARY CARE PHYSICIAN: Dr. Carbajal. PRIMARY DIAGNOSIS: Chest pain. SECONDARY DIAGNOSES: 1. Esophageal cancer, status post esophagectomy. 2. Kidney cancer, status post partial nephrectomy. 3. Hypertension. 4. Cerebrovascular accident. PROCEDURES: On 07/29/19, underwent nuclear cardiac stress test. STUDIES: Chest x-ray showed no active cardiopulmonary disease. Chest CTA was negative for aneurysm or dissection of the thoracic aorta. Coronary artery calcifications present. No evidence for local esophageal tumor, recurrence, or thoracic metastasis and no evidence for acute intrathoracic disease. Nuclear stress test showed the patient was low risk with no fixed or reversible perfusion defects. PERTINENT LAB DATA: Hemoglobin 13.5, hematocrit 40. Magnesium 1.8. Triglyceride 61, cholesterol 145, LDL cholesterol 48, HDL cholesterol 84.9. Troponin 0.02. HISTORY OF PRESENT ILLNESS/HOSPITAL COURSE: This is a 68-year-old male with a past medical history significant for esophageal cancer, kidney cancer, hypertension, and CVA who presented to the emergency room on 07/28/19 with complaints of chest pain. He had woken up at 4 in the morning with chest pain, worsening with deep breath, but was persistent. The pain radiated between his shoulder blades. In the emergency room, his pain responded well to nitro patch. Labs were drawn. Imaging was taken. EKG had shown sinus rhythm with right bundle-branch block. The patient was tachycardic and remained so through to about 6 o'clock last night when heart rate dropped down into the 70s and 80s and has remained there since. The patient has had 1 report of chest pain with deep breath in the middle of the night though has had none since then. It had been relieved by Tylenol. Denies any chest pressure, squeezing, or radiating pain at this time. The patient has gone to his nuclear stress test. They were unable to complete the exercise portion of it due to intolerance; however, nuclear portion revealed that he was a low risk. No transthoracic echocardiogram was done this admission as he has had one in September of this past year, which showed an ejection fraction of 50% to 55%. The patient was eager to go home today after resulting stress test stated that he felt fine, was having no additional chest pain. It sounded more musculoskeletal in nature, was not able to elicit any tenderness on palpation of the anterior chest wall. The patient states it may have correlated with the fact that his had left to go visit a family member the previous day even though he was not actively feeling anxious about it. REVIEW OF SYSTEMS: An 11-point system review was performed. It was negative for any fever, chills, chest pain, shortness of breath, palpitations, abdominal pain, nausea, vomiting, or issues moving his bowel or bladder. PHYSICAL EXAMINATION: Vital Signs: 98.1, 80 pulse, 20 resps, 100% oxygen on room air, 168/96 blood pressure. General: This is a well-developed gentleman seen sitting in the bed, in no acute distress. HEENT: Conjunctivae pink and moist. PERRLA. EOMs intact. Oropharynx clear. Mucous membranes moist. Neck is supple. Cardiac: S1, S2 present. Heart rate regular. No murmurs, gallops, or rubs appreciated. Respiratory: Lung sounds clear throughout bilaterally on room air. No accessory muscle use noted. Abdomen is soft, nontender, nondistended with positive bowel sounds x4. Musculoskeletal: Able to move all extremities. No clubbing or cyanosis of the digits. Neurologic: No focal deficits appreciated. Sensation intact to light touch. Skin is intact with no rashes or open areas appreciated. Psych: He is alert and oriented x4. Thought content organized. DISCHARGE PLAN: Diet is regular diet. Activity is as tolerated. Encourage that he go back to his cardio and weight-lifting as tolerated though to return to the hospital if should he develop any increasing shortness of breath or chest pain, particularly with chest pain provoked by activity and unimproved with rest. PLAN FOR EACH CONDITION: 1. Chest pain. The patient is to continue with 81 mg of aspirin daily. To follow up with PCP within a week. 2. Hypertension. Noted that during his stay, his blood pressure was slightly elevated. The patient admitted to feeling anxiety about having had chest pain. Would like him to follow up with his PCP for additional blood pressure control monitoring. He is to continue with metoprolol. 3. History of CVA. He is to continue his Xarelto and atorvastatin. 4. Anxiety. He is to continue his sertraline. MEDICATIONS TO CONTINUE UPON DISCHARGE: 1. Sertraline 100 mg p.o. daily. 2. Rivaroxaban 20 mg p.o. daily. 3. Atorvastatin 20 mg p.o. daily. 4. Aspirin 81 mg p.o. daily. CONDITION UPON DISCHARGE: Stable. DISPOSITION: To home. TIME SPENT: Time spent on the patient is about 60 minutes with half of that spent [id number]. EZRA CARLISLE, NURSE CHEMICAL DEPENDENCY [id number]/[facility] #: [id number] MTDD
== END 2019-07-29 14:26 | disposition home or self-care (01) ==
LOC: ED 10:18 → MEDTELE 15:47
PROVIDERS: ADMIT Hospitalist; ATTEND Internal Medicine
DX: R07.9 Chest pain, unspecified (principal); I10 Essential (primary) hypertension; F41.9 Anxiety disorder, unspecified; R94.31 Abnormal electrocardiogram [ECG] [EKG]; Z86.73 Personal history of transient ischemic attack (TIA), and cerebral infarction without residual deficits; Z79.82 Long term (current) use of aspirin; Z85.528 Personal history of other malignant neoplasm of kidney; Z79.899 Other long term (current) drug therapy; Z85.01 Personal history of malignant neoplasm of esophagus; Z79.01 Long term (current) use of anticoagulants; Z86.711 Personal history of pulmonary embolism
CPT/HCPCS: 36415; 71045; 71275; 78452; 80048; 80053; 80061; 81003; 81015; 83735; 84443; 84484; 85025; 85610; 85730; 87086; 93005; 93017; 96365; 96366; 99284; A9270-GY; A9502; G0378; J0280; J2785; J3475; Q9967

== ENCOUNTER 2021-07-18 00:07 | Observation (INO) ==
[2021-07-18] MEDS ORDERED: HYDROcodone/ACETAMIN 5/325 mg TAB PO ONE (02:42)
[2021-07-18] MEDS ORDERED: Ondansetron 4 mg VIAL 2 MG/ML 2 ml VIAL IV ONE (05:39)
[2021-07-18 06:30] LABS: ABS Lymphocytes 0.9 10^3/ul (1.0-4.8); ABS Monocytes 0.9 10^3/ul (0-0.8); ABS Neutrophils 8.5 10^3/ul (1.5-7.7); Hematocrit 43 % (42-52); Lymphocyte % 9.1 %; Mean Corpuscular HGB Conc 33 g/dL (31-36); Mean Corpuscular Hemoglobin 29 pg (27-31); Mean Corpuscular Volume 88 fL (80-94); Mean Platelet Volume 7.3 fL (7.4-10.4); Platelet Count 369 10^3/uL (150-450); Red Blood Count 4.86 10^6 /uL (4.18-5.48); Red Cell Distribution Width 16 % (10-15); White Blood Count 10.3 10^3/uL (3.5-10.8)
[2021-07-18 06:45] LABS: Activated Partial Thrombo Time 26.8 seconds (26.0-38.0); INR 1.16 (0.86-1.15)
[2021-07-18 06:50] LABS: Albumin 4.1 g/dL (3.2-5.2); Albumin/Globulin Ratio 1.3 (1-3); Calcium 9.1 mg/dL (8.6-10.3); Globulin 3.1 g/dL (2-4); Potassium 4.5 mmol/L (3.5-5.0); Total Bilirubin 0.8 mg/dL (0.2-1.0); Total Protein 7.2 g/dL (6.4-8.9); eGFR CKD-EPI 86.1 (>60)
[2021-07-18] MEDS: Aspirin EC 81 mg TAB.EC (enteric coated) PO SCH (09:31)
[2021-07-18] MEDS ORDERED: Morphine 2 MG/ML SYRINGE IV PRN (15:12)
[2021-07-18] MEDS: oxyCODONE/Acetamin 5/325 mg TAB PO PRN ×2 (16:06→20:02)
[2021-07-18] MEDS ORDERED: NS 0.9% 1000 ml BAG 1,000 ML IV SCH (23:59)
[2021-07-19] MEDS: oxyCODONE/Acetamin 5/325 mg TAB PO PRN ×2 (00:02→20:00)
[2021-07-19 06:35] LABS: ABS Basophils 0.1 10^3/ul (0-0.2); ABS Lymphocytes 1.1 10^3/ul (1.0-4.8); ABS Monocytes 1.1 10^3/ul (0-0.8); ABS Neutrophils 4.3 10^3/ul (1.5-7.7); Eosinophil % 0.5 %; Hematocrit 37 % (42-52); Hemoglobin 12.3 g/dL (14.0-18.0); Lymphocyte % 16.9 %; Mean Corpuscular HGB Conc 33 g/dL (31-36); Mean Corpuscular Hemoglobin 29 pg (27-31); Mean Corpuscular Volume 88 fL (80-94); Mean Platelet Volume 7.5 fL (7.4-10.4); Nucleated Red Blood Cells % 0.1; Platelet Count 296 10^3/uL (150-450); Red Blood Count 4.25 10^6 /uL (4.18-5.48); Red Cell Distribution Width 16 % (10-15); White Blood Count 6.6 10^3/uL (3.5-10.8)
[2021-07-19 06:40] LABS: INR 1.17 (0.86-1.15)
[2021-07-19 06:49] LABS: Calcium 8.8 mg/dL (8.6-10.3); Potassium 4.2 mmol/L (3.5-5.0); eGFR CKD-EPI 96.3 (>60)
[2021-07-19] MEDS ORDERED: Bupivacaine 0.5% SDV PF 30ML VIAL ONE ×2 (07:57→08:44)
[2021-07-19] MEDS ORDERED: Lidocaine 1% MPF 5 ML VIAL ONE (07:57)
[2021-07-19] MEDS ORDERED: ceFAZolin 2 GM in NS PREMIX 2 GM/100 ML BAG IVPB ONE (08:00)
[2021-07-19] MEDS ORDERED: Midazolam 5 mg/5 ml VIAL 1 mg/ml 5 ml VIAL (5 mg) ONE (08:05)
[2021-07-19] MEDS ORDERED: Dexamethasone IV 4 MG/ML VIAL 1 ml VIAL ONE ×2 (08:05→09:18)
[2021-07-19] MEDS ORDERED: Lidocaine 2% PF 5 ML VIAL ONE (08:43)
[2021-07-19] MEDS ORDERED: fentaNYL 250 mcg/5 ml 50 MCG/ML 5 ml VIAL (250 MCG) ONE (08:43)
[2021-07-19] MEDS ORDERED: Rocuronium 50 mg VIAL 10 mg/ml 5 ml VIAL (50 mg) ONE (08:43)
[2021-07-19] MEDS ORDERED: Etomidate 20 mg/10 ml 2 MG/ML 10 ml VIAL ONE (08:58)
[2021-07-19] MEDS ORDERED: Ondansetron 4 mg VIAL 2 MG/ML 2 ml VIAL ONE (09:18)
[2021-07-19] MEDS ORDERED: Phenylephrine 40 mcg/mL 10mL (400mcg) SYRINGE ONE (09:21)
[2021-07-19] MEDS ORDERED: EPHEDrine (Pressors) 50 MG/ML VIAL ONE (09:34)
[2021-07-19] MEDS ORDERED: Naloxone 0.4 mg VIAL 0.4 mg/ml 1 ml VIAL IV PRN (10:06)
[2021-07-19] MEDS ORDERED: fentaNYL 100 mcg/2 ml 50 MCG/ML VIAL IV PRN (10:06)
[2021-07-19] MEDS ORDERED: DiMENhydriNATE IV 50 mg/ml 1 ml VIAL IV PUSH PRN (10:06)
[2021-07-19] MEDS ORDERED: Ondansetron 4 mg VIAL 2 MG/ML 2 ml VIAL IV PRN (10:06)
[2021-07-19] MEDS: Aspirin EC 81 mg TAB.EC (enteric coated) PO SCH (13:59)
[2021-07-19] MEDS: ceFAZolin 1 GM X 3 DOSES POST-OP Q8H (AddVan) IVPB SCH (16:31)
[2021-07-19] MEDS: Senna TAB 8.6 mg TAB PO PRN (20:00)
[2021-07-20] MEDS: ceFAZolin 1 GM X 3 DOSES POST-OP Q8H (AddVan) IVPB SCH ×2 (00:08→07:48)
[2021-07-20] MEDS: oxyCODONE/Acetamin 5/325 mg TAB PO PRN ×2 (02:52→21:08)
[2021-07-20 06:17] LABS: ABS Lymphocytes 0.6 10^3/ul (1.0-4.8); Hematocrit 38 % (42-52); Hemoglobin 12.5 g/dL (14.0-18.0); Lymphocyte % 6.4 %; Mean Corpuscular HGB Conc 33 g/dL (31-36); Mean Corpuscular Hemoglobin 29 pg (27-31); Mean Corpuscular Volume 89 fL (80-94); Mean Platelet Volume 7.5 fL (7.4-10.4); Nucleated Red Blood Cells % 0.1; Platelet Count 303 10^3/uL (150-450); Red Blood Count 4.24 10^6 /uL (4.18-5.48); Red Cell Distribution Width 17 % (10-15); White Blood Count 9.7 10^3/uL (3.5-10.8)
[2021-07-20 06:35] LABS: Potassium 4.4 mmol/L (3.5-5.0); eGFR CKD-EPI 91.9 (>60)
[2021-07-20] MEDS: Polyethylene Glycol 3350 17 GM PACKET PO SCH (07:49)
[2021-07-20] MEDS: Aspirin EC 81 mg TAB.EC (enteric coated) PO SCH (07:50)
[2021-07-20] MEDS: Senna TAB 8.6 mg TAB PO PRN (21:08)
[2021-07-21] MEDS: Polyethylene Glycol 3350 17 GM PACKET PO SCH (08:33)
[2021-07-21] MEDS: Aspirin EC 81 mg TAB.EC (enteric coated) PO SCH (08:33)
[2021-07-22 08:47] LABS: Vitamin D Total 25(OH) 9.4 ng/mL (20-50)
[2021-07-22] MEDS: Aspirin EC 81 mg TAB.EC (enteric coated) PO SCH (08:56)
[2021-07-22] MEDS: Polyethylene Glycol 3350 17 GM PACKET PO SCH (08:56)
[2021-07-23] MEDS: Aspirin EC 81 mg TAB.EC (enteric coated) PO SCH (09:42)
[2021-07-23] MEDS: Polyethylene Glycol 3350 17 GM PACKET PO SCH (09:54)
[2021-07-24] MEDS: Polyethylene Glycol 3350 17 GM PACKET PO SCH (09:58)
[2021-07-24] MEDS: Aspirin EC 81 mg TAB.EC (enteric coated) PO SCH (10:17)
[2021-07-24 11:44] VITALS: BP 146/80
== END 2021-07-24 16:42 | disposition home or self-care (01) ==
LOC: ED 00:07 → SUATTDRO 06:30 → INTOOBSV 06:30 → EDHOLD 06:30 → SSU 13:18
PROVIDERS: ADMIT Internal Medicine; ATTEND Hospitalist

== ENCOUNTER 2021-12-21 13:13 | Inpatient (IN) ==
[2021-12-21] MEDS ORDERED: Orphenadrine Citrate INJ 30 mg/ml 2 ml VIAL (60 mg) IV ONE (14:35)
[2021-12-21] MEDS ORDERED: Dexamethasone IV 4 MG/ML VIAL 1 ml VIAL IV SLOW PU ONE (14:35)
[2021-12-21] MEDS ORDERED: oxyCODONE/Acetamin 5/325 mg TAB PO ONE (14:35)
[2021-12-21 17:01] LABS: Hematocrit 40 % (42-52); Hemoglobin 13.2 g/dL (14.0-18.0); Mean Corpuscular HGB Conc 33 g/dL (31-36); Mean Corpuscular Hemoglobin 31 pg (27-31); Mean Corpuscular Volume 93 fL (80-94); Mean Platelet Volume 7.3 fL (7.4-10.4); Platelet Count 348 10^3/uL (150-450); Red Blood Count 4.33 10^6 /uL (4.18-5.48); Red Cell Distribution Width 16 % (10-15); White Blood Count 7.3 10^3/uL (3.5-10.8)
[2021-12-21] MEDS ORDERED: NS 0.9% 1000 ml BAG 1,000 ML IV ONE (17:34)
[2021-12-21 17:42] LABS: Alcohol, S < 13 mg/dL (<13)
[2021-12-21 17:44] LABS: ALT 55 U/L (7-52); AST 74 U/L (13-39); Albumin 3.4 g/dL (3.2-5.2); Albumin/Globulin Ratio 1.5 (1-3); Alkaline Phosphatase 103 U/L (35-149); Anion Gap 16 mmol/L (2-11); Blood Urea Nitrogen 13 mg/dL (6-24); C Reactive Protein 68.33 mg/L (<8.01); CO2 Carbon Dioxide 21 mmol/L (22-32); Calcium 8.8 mg/dL (8.6-10.3); Chloride 87 mmol/L (101-111); Globulin 2.2 g/dL (2-4); Glucose 56 mg/dL (70-100); Lipase < 10 U/L (11.0-82.0); Sodium 124 mmol/L (135-145); Total Protein 5.6 g/dL (6.4-8.9); eGFR CKD-EPI 102.7 (>60)
[2021-12-21 17:51] LABS: RBC Morphology Normal (Normal)
[2021-12-21 17:52] LABS: ABS Lymphocytes 0.4 10^3/ul (1.0-4.8); ABS Monocytes 0.9 10^3/ul (0-0.8); Eosinophil % 0.2 %; Lymphocyte % 5.4 %; Nucleated Red Blood Cells % 0.1
[2021-12-21 19:56] LABS: High Sensitivity Troponin 1 Hr 27 pg/mL (<20)
[2021-12-21 19:59] LABS: Urine Appearance Clear; Urine Bilirubin Negative (Negative); Urine Blood 1+ (Negative); Urine Color Amber; Urine Glucose Negative (Negative); Urine Ketones 1+ (Negative); Urine Nitrite Negative (Negative); Urine Protein Negative (Negative); Urine Specific Gravity 1.011 (1.002-1.030); Urine Urobilinogen Positive (Negative)
[2021-12-21 20:14] LABS: Urine Bacteria 1+ (Absent); Urine Red Blood Cell Trace(0-2/hpf) (Absent); Urine Squamous Epithelial Cell Present (Absent); Urine White Blood Cell Trace(0-5/hpf) (Absent)
[2021-12-21] MEDS ORDERED: Thiamine 100 MG/ML 2 ml VIAL (200 mg) IM ONE (21:21)
[2021-12-21 22:00] LABS: TSH Ultra Thyroid Stim Horm 1.42 mcIU/mL (0.34-5.60)
[2021-12-21 22:09] LABS: Creatine Kinase 383 U/L (10-223)
[2021-12-21 22:12] LABS: Vitamin D Total 25(OH) 19.6 ng/mL (20-50)
[2021-12-21 23:04] LABS: Urine Benzodiazepine Screen None Detected (None Detect); Urine Cannabinoids Screen None Detected (None Detect); Urine Opiates Screen None Detected (None Detect)
[2021-12-21 23:05] LABS: Calcium 8.2 mg/dL (8.6-10.3); Potassium 4.2 mmol/L (3.5-5.0); eGFR CKD-EPI 99.8 (>60)
[2021-12-21 23:23] LABS: Urine Buprenorphine Screen None Detected (None Detect); Urine Fentanyl Screen Presumptive Positive (None Detect); Urine Hydrocodone Screen None Detected (None Detect)
[2021-12-22] MEDS ORDERED: NS 0.9% 1000 ml BAG 1,000 ML IV SCH (03:45)
[2021-12-22 06:30] LABS: Urine Osmo 329 mOsm/kg (150-1150)
[2021-12-22 06:33] LABS: Osmolality Serum 272 mOsm/kg (275-295)
[2021-12-22 07:04] LABS: Hematocrit 39 % (42-52); Hemoglobin 12.9 g/dL (14.0-18.0); Mean Corpuscular HGB Conc 33 g/dL (31-36); Mean Corpuscular Hemoglobin 31 pg (27-31); Mean Corpuscular Volume 94 fL (80-94); Mean Platelet Volume 7.8 fL (7.4-10.4); Platelet Count 393 10^3/uL (150-450); Red Blood Count 4.15 10^6 /uL (4.18-5.48); Red Cell Distribution Width 17 % (10-15); White Blood Count 6.9 10^3/uL (3.5-10.8)
[2021-12-22 07:13] LABS: INR 0.98 (0.86-1.15)
[2021-12-22 07:26] LABS: Albumin 3.2 g/dL (3.2-5.2); Albumin/Globulin Ratio 1.3 (1-3); Calcium 8.7 mg/dL (8.6-10.3); Globulin 2.5 g/dL (2-4); Potassium 4.4 mmol/L (3.5-5.0); Total Bilirubin 1.3 mg/dL (0.2-1.0); Total Protein 5.7 g/dL (6.4-8.9); eGFR CKD-EPI 100.7 (>60)
[2021-12-22 08:33] LABS: ABS Lymphocytes 0.6 10^3/ul (1.0-4.8); ABS Neutrophils 5.3 10^3/ul (1.5-7.7); Nucleated Red Blood Cells % 0.1
[2021-12-22] MEDS: Multivitamins/Minerals TAB PO SCH (08:53)
[2021-12-22] MEDS ORDERED: oxyCODONE/Acetamin 5/325 mg TAB PO PRN (14:47)
[2021-12-22 16:00] LABS: Calcium 8.7 mg/dL (8.6-10.3); Potassium 3.8 mmol/L (3.5-5.0); eGFR CKD-EPI 94.6 (>60)
[2021-12-22] MEDS: Mupirocin 2% OINT TUBE TOPICAL SCH (20:42)
[2021-12-23 06:17] LABS: Hematocrit 35 % (42-52); Hemoglobin 11.6 g/dL (14.0-18.0); Mean Corpuscular HGB Conc 33 g/dL (31-36); Mean Corpuscular Hemoglobin 31 pg (27-31); Mean Corpuscular Volume 93 fL (80-94); Platelet Count 373 10^3/uL (150-450); Red Blood Count 3.76 10^6 /uL (4.18-5.48); Red Cell Distribution Width 17 % (10-15); White Blood Count 5.2 10^3/uL (3.5-10.8)
[2021-12-23 06:21] LABS: ABS Lymphocytes 1.3 10^3/ul (1.0-4.8); ABS Monocytes 1.1 10^3/ul (0-0.8); ABS Neutrophils 2.8 10^3/ul (1.5-7.7); Eosinophil % 0.3 %; Lymphocyte % 24.3 %; Nucleated Red Blood Cells % 0.1
[2021-12-23 06:50] LABS: Albumin 2.9 g/dL (3.2-5.2); Albumin/Globulin Ratio 1.3 (1-3); Calcium 8.8 mg/dL (8.6-10.3); Globulin 2.2 g/dL (2-4); Potassium 3.6 mmol/L (3.5-5.0); Total Bilirubin 1.1 mg/dL (0.2-1.0); Total Protein 5.1 g/dL (6.4-8.9); eGFR CKD-EPI 99.4 (>60)
[2021-12-23] MEDS: Mupirocin 2% OINT TUBE TOPICAL SCH ×2 (09:46→21:37)
[2021-12-23] MEDS: Multivitamins/Minerals TAB PO SCH (10:12)
[2021-12-23 12:18] LABS: Urine Osmo 134 mOsm/kg (150-1150)
[2021-12-24 05:11] LABS: Hematocrit 37 % (42-52); Hemoglobin 12.5 g/dL (14.0-18.0); Mean Corpuscular HGB Conc 33 g/dL (31-36); Mean Corpuscular Hemoglobin 31 pg (27-31); Mean Corpuscular Volume 94 fL (80-94); Platelet Count 419 10^3/uL (150-450); Red Blood Count 3.97 10^6 /uL (4.18-5.48); Red Cell Distribution Width 17 % (10-15); White Blood Count 5.6 10^3/uL (3.5-10.8)
[2021-12-24 05:42] LABS: Albumin 3.1 g/dL (3.2-5.2); Albumin/Globulin Ratio 1.5 (1-3); Calcium 9.2 mg/dL (8.6-10.3); Direct Bilirubin 0.3 mg/dL (0.03-0.18); Globulin 2.1 g/dL (2-4); Indirect Bilirubin 0.7 mg/dL (0.3-1.0); Magnesium 1.3 mg/dL (1.9-2.7); Potassium 3.6 mmol/L (3.5-5.0); Total Protein 5.2 g/dL (6.4-8.9); eGFR CKD-EPI 104.3 (>60)
[2021-12-24 06:21] LABS: ABS Lymphocytes 1.5 10^3/ul (1.0-4.8); Eosinophil % 0.5 %; Lymphocyte % 26.7 %
[2021-12-24] MEDS ORDERED: Magnesium Sulfate IV 3 GM in NS 0.9% 100 ml BAG 100 ML IVPB ONE (07:33)
[2021-12-24] MEDS: Mupirocin 2% OINT TUBE TOPICAL SCH ×2 (08:37→22:04)
[2021-12-24] MEDS: Multivitamins/Minerals TAB PO SCH (08:37)
[2021-12-24] MEDS ORDERED: Magnesium Sulfate 2 GM IV (Premix) IVPB ONE (09:00)
[2021-12-24] MEDS ORDERED: Magnesium Sulfate 1 GM IV 1 GM/100 ML BAG IV ONE (10:00)
[2021-12-24 13:41] LABS: Vitamin B12 1120 pg/mL (180-914)
[2021-12-24] MEDS ORDERED: Magnesium Sulfate 2 gm BAG 2 GM/50 ML BAG IVPB ONE (15:29)
[2021-12-25 06:00] LABS: Calcium 8.7 mg/dL (8.6-10.3); Potassium 3.7 mmol/L (3.5-5.0); eGFR CKD-EPI 101.7 (>60)
[2021-12-25] MEDS: Multivitamins/Minerals TAB PO SCH (08:00)
[2021-12-25] MEDS: Mupirocin 2% OINT TUBE TOPICAL SCH ×2 (08:01→20:20)
[2021-12-26 07:10] LABS: Calcium 8.9 mg/dL (8.6-10.3); Potassium 3.9 mmol/L (3.5-5.0); eGFR CKD-EPI 102.2 (>60)
[2021-12-26] MEDS: Multivitamins/Minerals TAB PO SCH (08:00)
[2021-12-26] MEDS: Mupirocin 2% OINT TUBE TOPICAL SCH (08:00)
[2021-12-26 11:48] VITALS: BP 115/60
== END 2021-12-26 13:10 | DRG 641 ==
LOC: ED 13:13 → SUATTDRO 21:15 → EDHOLD 21:15 → MED 23:40
PROVIDERS: ADMIT Internal Medicine; ATTEND Student in an Organized Health Care Education/Training Program

== ENCOUNTER 2022-03-13 13:26 | Inpatient (IN) ==
[2022-03-13] MEDS ORDERED: Thiamine 100 MG/ML 2 ml VIAL (200 mg) IV ONE (14:44)
[2022-03-13] MEDS ORDERED: Ondansetron 4 mg VIAL 2 MG/ML 2 ml VIAL IV ONE (14:45)
[2022-03-13] MEDS ORDERED: diazePAM INJ CARPUJECT 5 MG/ML SYRINGE IV ONE (14:45)
[2022-03-13] MEDS ORDERED: Lactated Ringers 1000 ml BAG 1,000 ML IV ONE (14:45)
[2022-03-13] MEDS ORDERED: Thiamine IV 100 MG in NS 0.9% 50 ML Q24H IV ONE (15:00)
[2022-03-13] MEDS ORDERED: LORazepam 2 mg VIAL 1 ml IV PUSH SCH (15:00)
[2022-03-13 15:15] LABS: ABS Lymphocytes 0.5 10^3/ul (1.0-4.8); ABS Monocytes 0.8 10^3/ul (0-0.8); ABS Neutrophils 6.8 10^3/ul (1.5-7.7); Hematocrit 49 % (42-52); Lymphocyte % 6.1 %; Mean Corpuscular HGB Conc 33 g/dL (31-36); Mean Corpuscular Hemoglobin 31 pg (27-31); Mean Corpuscular Volume 96 fL (80-94); Mean Platelet Volume 7.1 fL (7.4-10.4); Nucleated Red Blood Cells % 0.1; Platelet Count 189 10^3/uL (150-450); Red Cell Distribution Width 19 % (10-15)
[2022-03-13 15:34] LABS: High Sens Troponin Baseline 21 pg/mL (<20)
[2022-03-13 15:57] LABS: ALT 23 U/L (7-52); AST 52 U/L (13-39); Albumin/Globulin Ratio 1.3 (1-3); Alcohol, S 152 mg/dL (<13); Alkaline Phosphatase 122 U/L (35-149); Anion Gap 21 mmol/L (2-11); Blood Urea Nitrogen 11 mg/dL (6-24); CO2 Carbon Dioxide 22 mmol/L (22-32); Calcium 9.4 mg/dL (8.6-10.3); Chloride 99 mmol/L (101-111); Globulin 3.2 g/dL (2-4); Glucose 69 mg/dL (70-100); Lipase < 10 U/L (11.0-82.0); Potassium 4.7 mmol/L (3.5-5.0); Sodium 142 mmol/L (135-145); Total Protein 7.2 g/dL (6.4-8.9); eGFR CKD-EPI 91.9 (>60)
[2022-03-13] MEDS: Multivitamins/Minerals TAB PO SCH (16:46)
[2022-03-13 16:54] LABS: High Sensitivity Troponin 1 Hr 20 pg/mL (<20)
[2022-03-13] MEDS ORDERED: Ondansetron 4 mg VIAL 2 MG/ML 2 ml VIAL IV PRN (18:38)
[2022-03-13] MEDS: cefTRIAXone 1 gm/50 mL D5W 1 GM/50 ML BAG IV SCH (19:46)
[2022-03-13] MEDS: Azithromycin 500 mg/250 ml NS 500 MG/250 ML BAG IVPB SCH (21:07)
[2022-03-14 06:05] LABS: ABS Basophils 0.1 10^3/ul (0-0.2); ABS Lymphocytes 1.1 10^3/ul (1.0-4.8); ABS Monocytes 0.8 10^3/ul (0-0.8); ABS Neutrophils 2.7 10^3/ul (1.5-7.7); Eosinophil % 0.5 %; Hematocrit 39 % (42-52); Hemoglobin 12.5 g/dL (14.0-18.0); Lymphocyte % 23.5 %; Mean Corpuscular HGB Conc 32 g/dL (31-36); Mean Corpuscular Hemoglobin 32 pg (27-31); Mean Corpuscular Volume 101 fL (80-94); Mean Platelet Volume 7.4 fL (7.4-10.4); Platelet Count 127 10^3/uL (150-450); Red Blood Count 3.88 10^6 /uL (4.18-5.48); Red Cell Distribution Width 19 % (10-15); White Blood Count 4.7 10^3/uL (3.5-10.8)
[2022-03-14 06:19] LABS: Albumin/Globulin Ratio 1.3 (1-3); Calcium 8.6 mg/dL (8.6-10.3); Globulin 2.4 g/dL (2-4); HDL Cholesterol 129.4 mg/dL; Potassium 4.5 mmol/L (3.5-5.0); Total Bilirubin 1.4 mg/dL (0.2-1.0); Total Protein 5.4 g/dL (6.4-8.9); eGFR CKD-EPI 86.7 (>60)
[2022-03-14 08:55] LABS: Magnesium 1.6 mg/dL (1.9-2.7)
[2022-03-14] MEDS ORDERED: Magnesium Sulfate IV 3 GM in NS 0.9% 100 ml BAG 100 ML IVPB ONE (09:08)
[2022-03-14] MEDS: Multivitamins/Minerals TAB PO SCH (09:09)
[2022-03-14] MEDS: cefTRIAXone 1 gm/50 mL D5W 1 GM/50 ML BAG IV SCH (20:37)
[2022-03-14] MEDS: Azithromycin 500 mg/250 ml NS 500 MG/250 ML BAG IVPB SCH (21:58)
[2022-03-15 05:31] LABS: ABS Eosinophils 0.1 10^3/ul (0-0.6); ABS Lymphocytes 1.2 10^3/ul (1.0-4.8); ABS Monocytes 0.6 10^3/ul (0-0.8); ABS Neutrophils 2.1 10^3/ul (1.5-7.7); Eosinophil % 1.8 %; Hematocrit 36 % (42-52); Hemoglobin 12.4 g/dL (14.0-18.0); Lymphocyte % 29.7 %; Mean Corpuscular HGB Conc 34 g/dL (31-36); Mean Corpuscular Hemoglobin 33 pg (27-31); Mean Corpuscular Volume 95 fL (80-94); Mean Platelet Volume 7.9 fL (7.4-10.4); Nucleated Red Blood Cells % 0.1; Platelet Count 115 10^3/uL (150-450); Red Blood Count 3.81 10^6 /uL (4.18-5.48); Red Cell Distribution Width 18 % (10-15)
[2022-03-15 05:56] LABS: Albumin 2.9 g/dL (3.2-5.2); Albumin/Globulin Ratio 1.3 (1-3); Calcium 8.6 mg/dL (8.6-10.3); Globulin 2.2 g/dL (2-4); Magnesium 1.8 mg/dL (1.9-2.7); Potassium 3.9 mmol/L (3.5-5.0); Total Bilirubin 1.1 mg/dL (0.2-1.0); Total Protein 5.1 g/dL (6.4-8.9); eGFR CKD-EPI 95.7 (>60)
[2022-03-15] MEDS ORDERED: Magnesium Sulfate 2 gm BAG 2 GM/50 ML BAG IVPB ONE (08:18)
[2022-03-15] MEDS: Multivitamins/Minerals TAB PO SCH (08:46)
[2022-03-15] MEDS: cefTRIAXone 1 gm/50 mL D5W 1 GM/50 ML BAG IV SCH (21:25)
[2022-03-15] MEDS: Azithromycin 500 mg/250 ml NS 500 MG/250 ML BAG IVPB SCH (22:00)
[2022-03-16] MEDS: Multivitamins/Minerals TAB PO SCH (10:30)
[2022-03-16] MEDS: cefTRIAXone 1 gm/50 mL D5W 1 GM/50 ML BAG IV SCH (20:51)
[2022-03-17 06:42] LABS: ABS Eosinophils 0.1 10^3/ul (0-0.6); ABS Lymphocytes 1.3 10^3/ul (1.0-4.8); ABS Monocytes 0.8 10^3/ul (0-0.8); Eosinophil % 1.9 %; Hematocrit 39 % (42-52); Hemoglobin 12.3 g/dL (14.0-18.0); Lymphocyte % 31.4 %; Mean Corpuscular HGB Conc 32 g/dL (31-36); Mean Corpuscular Hemoglobin 31 pg (27-31); Mean Corpuscular Volume 97 fL (80-94); Mean Platelet Volume 8.4 fL (7.4-10.4); Nucleated Red Blood Cells % 0.2; Platelet Count 144 10^3/uL (150-450); Red Blood Count 3.96 10^6 /uL (4.18-5.48); Red Cell Distribution Width 18 % (10-15); White Blood Count 4.3 10^3/uL (3.5-10.8)
[2022-03-17 07:23] LABS: Albumin/Globulin Ratio 1.3 (1-3); Calcium 8.9 mg/dL (8.6-10.3); Globulin 2.3 g/dL (2-4); Magnesium 1.7 mg/dL (1.9-2.7); Potassium 4.2 mmol/L (3.5-5.0); Total Bilirubin 0.5 mg/dL (0.2-1.0); Total Protein 5.3 g/dL (6.4-8.9); eGFR CKD-EPI 97.7 (>60)
[2022-03-17] MEDS ORDERED: Magnesium Sulfate 2 gm BAG 2 GM/50 ML BAG IVPB ONE (08:01)
[2022-03-17] MEDS: Multivitamins/Minerals TAB PO SCH (10:43)
[2022-03-17] MEDS: cefTRIAXone 1 gm/50 mL D5W 1 GM/50 ML BAG IV SCH (20:18)
[2022-03-18] MEDS: Multivitamins/Minerals TAB PO SCH (08:58)
[2022-03-18] MEDS ORDERED: Polyethylene Glycol 3350 17 GM PACKET PO PRN (19:39)
[2022-03-19 04:36] LABS: Rapid COVID-19 Molecular Undetected (Undetected)
[2022-03-19] MEDS: Multivitamins/Minerals TAB PO SCH (08:06)
[2022-03-19 12:12] VITALS: BP 122/67
== END 2022-03-19 14:00 | DRG 896 ==
LOC: ED 13:26 → EDHOLD 13:26 → MED 23:35 → SUATTDRO 03-15 12:53
PROVIDERS: ADMIT Internal Medicine; ATTEND Internal Medicine

== ENCOUNTER 2022-06-04 18:02 | Inpatient (IN) ==
[2022-06-04 20:29] LABS: Hematocrit 45 % (42-52); Hemoglobin 14.8 g/dL (14.0-18.0); Mean Corpuscular HGB Conc 33 g/dL (31-36); Mean Corpuscular Hemoglobin 30 pg (27-31); Mean Corpuscular Volume 92 fL (80-94); Platelet Count 264 10^3/uL (150-450); Red Blood Count 4.92 10^6 /uL (4.18-5.48); Red Cell Distribution Width 23 % (10-15); White Blood Count 7.3 10^3/uL (3.5-10.8)
[2022-06-04 20:45] LABS: Urine Appearance Clear; Urine Bilirubin Negative (Negative); Urine Blood Negative (Negative); Urine Color Yellow; Urine Glucose Negative (Negative); Urine Ketones Negative (Negative); Urine Nitrite Negative (Negative); Urine Protein Negative (Negative); Urine Specific Gravity 1.009 (1.002-1.030); Urine Urobilinogen Negative (Negative)
[2022-06-04 20:52] LABS: Urine Benzodiazepine Screen None Detected (None Detect); Urine Cannabinoids Screen Presumptive Positive (None Detect); Urine Opiates Screen None Detected (None Detect)
[2022-06-04] MEDS ORDERED: Lactated Ringers 1000 ml BAG 1,000 ML IV ONE (20:59)
[2022-06-04 21:05] LABS: ABS Basophils 0.1 10^3/ul (0-0.2); ABS Lymphocytes 0.8 10^3/ul (1.0-4.8); ABS Monocytes 1.2 10^3/ul (0-0.8); ABS Neutrophils 5.3 10^3/ul (1.5-7.7); Eosinophil % 0.2 %; Lymphocyte % 10.7 %
[2022-06-04 21:08] LABS: ALT 18 U/L (7-52); AST 40 U/L (13-39); Acetaminophen < 15 mcg/mL; Albumin 3.5 g/dL (3.2-5.2); Albumin/Globulin Ratio 1.2 (1-3); Alcohol, S 112 mg/dL (<13); Alkaline Phosphatase 152 U/L (35-149); Anion Gap 15 mmol/L (2-11); Blood Urea Nitrogen 10 mg/dL (6-24); CO2 Carbon Dioxide 24 mmol/L (22-32); Calcium 8.8 mg/dL (8.6-10.3); Chloride 98 mmol/L (101-111); Glucose 131 mg/dL (70-100); Potassium 4.4 mmol/L (3.5-5.0); Salicylate < 2.50 mg/dL (<30); Sodium 137 mmol/L (135-145); Total Protein 6.5 g/dL (6.4-8.9); eGFR CKD-EPI 102.2 (>60)
[2022-06-04 21:23] LABS: TSH Ultra Thyroid Stim Horm 1.71 mcIU/mL (0.34-5.60)
[2022-06-05] MEDS ORDERED: Thiamine 100 MG/ML 2 ml VIAL (200 mg) IM ONE (11:01)
[2022-06-05] MEDS: Multivitamins/Minerals TAB PO SCH (11:17)
[2022-06-05 11:48] LABS: Magnesium 1.4 mg/dL (1.9-2.7)
[2022-06-05] MEDS ORDERED: Magnesium Sulf 4 GM/100 ML IV 4,000 MG/100 ML BAG IVPB ONE (12:47)
[2022-06-06 06:42] LABS: Hematocrit 42 % (42-52); Hemoglobin 13.9 g/dL (14.0-18.0); Mean Corpuscular HGB Conc 33 g/dL (31-36); Mean Corpuscular Hemoglobin 31 pg (27-31); Mean Corpuscular Volume 92 fL (80-94); Mean Platelet Volume 7.6 fL (7.4-10.4); Platelet Count 212 10^3/uL (150-450); Red Blood Count 4.56 10^6 /uL (4.18-5.48); Red Cell Distribution Width 24 % (10-15)
[2022-06-06 07:29] LABS: Albumin 3.2 g/dL (3.2-5.2); Albumin/Globulin Ratio 1.3 (1-3); Globulin 2.5 g/dL (2-4); Magnesium 1.8 mg/dL (1.9-2.7); Potassium 3.8 mmol/L (3.5-5.0); Total Bilirubin 1.6 mg/dL (0.2-1.0); Total Protein 5.7 g/dL (6.4-8.9)
[2022-06-06] MEDS ORDERED: Magnesium Sulfate 2 gm BAG 2 GM/50 ML BAG IVPB ONE (07:30)
[2022-06-06] MEDS: Multivitamins/Minerals TAB PO SCH (09:17)
[2022-06-06 09:48] LABS: ABS Eosinophils 0.1 10^3/ul (0-0.6); ABS Lymphocytes 1.1 10^3/ul (1.0-4.8); ABS Monocytes 0.9 10^3/ul (0-0.8); ABS Neutrophils 2.8 10^3/ul (1.5-7.7); Eosinophil % 1.3 %
[2022-06-07 06:49] LABS: Albumin 3.1 g/dL (3.2-5.2); Albumin/Globulin Ratio 1.3 (1-3); Calcium 8.8 mg/dL (8.6-10.3); Globulin 2.4 g/dL (2-4); Magnesium 1.6 mg/dL (1.9-2.7); Potassium 3.7 mmol/L (3.5-5.0); Total Protein 5.5 g/dL (6.4-8.9); eGFR CKD-EPI 103.7 (>60)
[2022-06-07 06:55] LABS: ABS Eosinophils 0.1 10^3/ul (0-0.6); ABS Lymphocytes 1.1 10^3/ul (1.0-4.8); ABS Monocytes 1.2 10^3/ul (0-0.8); ABS Neutrophils 3.4 10^3/ul (1.5-7.7); Eosinophil % 0.9 %; Hematocrit 39 % (42-52); Hemoglobin 12.7 g/dL (14.0-18.0); Lymphocyte % 19.3 %; Mean Corpuscular HGB Conc 33 g/dL (31-36); Mean Corpuscular Hemoglobin 30 pg (27-31); Mean Corpuscular Volume 93 fL (80-94); Mean Platelet Volume 7.6 fL (7.4-10.4); Platelet Count 225 10^3/uL (150-450); Red Blood Count 4.16 10^6 /uL (4.18-5.48); Red Cell Distribution Width 23 % (10-15); White Blood Count 5.8 10^3/uL (3.5-10.8)
[2022-06-07] MEDS ORDERED: Magnesium Sulf 4 GM/100 ML IV 4,000 MG/100 ML BAG IVPB ONE (07:43)
[2022-06-07] MEDS: Multivitamins/Minerals TAB PO SCH (09:09)
[2022-06-07] MEDS ORDERED: Iodixanol (CONTRAST) 320 MG/ML 100 ML SDV IV ONE (15:15)
[2022-06-07 16:29] LABS: ABS Monocytes 1.1 10^3/ul (0-0.8); ABS Neutrophils 3.8 10^3/ul (1.5-7.7); Eosinophil % 0.8 %; Hematocrit 40 % (42-52); Hemoglobin 12.8 g/dL (14.0-18.0); Lymphocyte % 17.3 %; Mean Corpuscular HGB Conc 32 g/dL (31-36); Mean Corpuscular Hemoglobin 30 pg (27-31); Mean Corpuscular Volume 93 fL (80-94); Mean Platelet Volume 7.3 fL (7.4-10.4); Platelet Count 244 10^3/uL (150-450); Red Blood Count 4.28 10^6 /uL (4.18-5.48); Red Cell Distribution Width 23 % (10-15)
[2022-06-07 17:18] LABS: Calcium 8.6 mg/dL (8.6-10.3); Potassium 4.4 mmol/L (3.5-5.0); eGFR CKD-EPI 102.2 (>60)
[2022-06-07] MEDS ORDERED: Furosemide 40 mg/4 ml IV VIAL IV SLOW PU ONE (17:26)
[2022-06-08 07:50] LABS: Hematocrit 38 % (42-52); Hemoglobin 12.4 g/dL (14.0-18.0); Mean Corpuscular HGB Conc 33 g/dL (31-36); Mean Corpuscular Hemoglobin 31 pg (27-31); Mean Corpuscular Volume 93 fL (80-94); Mean Platelet Volume 7.4 fL (7.4-10.4); Platelet Count 251 10^3/uL (150-450); Red Blood Count 4.04 10^6 /uL (4.18-5.48); Red Cell Distribution Width 23 % (10-15); White Blood Count 5.9 10^3/uL (3.5-10.8)
[2022-06-08 08:22] LABS: Calcium 8.6 mg/dL (8.6-10.3); Magnesium 1.7 mg/dL (1.9-2.7); Potassium 3.5 mmol/L (3.5-5.0); eGFR CKD-EPI 103.7 (>60)
[2022-06-08] MEDS ORDERED: Magnesium Sulfate IV 3 GM in NS 0.9% 100 ml BAG 100 ML IVPB ONE (08:30)
[2022-06-08] MEDS ORDERED: Furosemide 40 mg/4 ml IV VIAL IV SLOW PU ONE (08:31)
[2022-06-08] MEDS: Multivitamins/Minerals TAB PO SCH (08:33)
[2022-06-08 09:26] LABS: ABS Eosinophils 0.1 10^3/ul (0-0.6); ABS Lymphocytes 1.5 10^3/ul (1.0-4.8); ABS Monocytes 1.1 10^3/ul (0-0.8); ABS Neutrophils 3.1 10^3/ul (1.5-7.7); Eosinophil % 1.3 %; Lymphocyte % 26.1 %; Nucleated Red Blood Cells % 0.1
[2022-06-09 06:40] LABS: Hematocrit 38 % (42-52); Hemoglobin 12.4 g/dL (14.0-18.0); Mean Corpuscular HGB Conc 33 g/dL (31-36); Mean Corpuscular Hemoglobin 30 pg (27-31); Mean Corpuscular Volume 92 fL (80-94); Mean Platelet Volume 7.2 fL (7.4-10.4); Platelet Count 261 10^3/uL (150-450); Red Cell Distribution Width 23 % (10-15)
[2022-06-09 06:58] LABS: Calcium 8.5 mg/dL (8.6-10.3); Magnesium 1.8 mg/dL (1.9-2.7); Potassium 3.3 mmol/L (3.5-5.0); eGFR CKD-EPI 103.7 (>60)
[2022-06-09 08:22] LABS: ABS Basophils 0.1 10^3/ul (0-0.2); ABS Eosinophils 0.1 10^3/ul (0-0.6); ABS Lymphocytes 1.5 10^3/ul (1.0-4.8); ABS Monocytes 1.2 10^3/ul (0-0.8); ABS Neutrophils 3.2 10^3/ul (1.5-7.7); Eosinophil % 1.3 %; Lymphocyte % 25.3 %
[2022-06-09] MEDS: Multivitamins/Minerals TAB PO SCH (09:13)
[2022-06-09] MEDS ORDERED: Potassium Chlor 20 meq TAB.ER PO ONE (15:13)
[2022-06-09] MEDS ORDERED: Magnesium Sulfate 2 gm BAG 2 GM/50 ML BAG IVPB ONE (15:14)
[2022-06-09] MEDS ORDERED: Furosemide 40 mg/4 ml IV VIAL IV ONE (15:14)
[2022-06-10 06:41] LABS: CO2 Carbon Dioxide 28 mmol/L (22-32); Calcium 8.8 mg/dL (8.6-10.3); Chloride 92 mmol/L (101-111); Sodium 129 mmol/L (135-145)
[2022-06-10 06:46] LABS: Blood Urea Nitrogen 8 mg/dL (6-24); Glucose 83 mg/dL (70-100); eGFR CKD-EPI 101.2 (>60)
[2022-06-10 06:47] LABS: Anion Gap 9 mmol/L (2-11)
[2022-06-10 08:13] LABS: Potassium Redraw 3.8 mmol/L (3.5-5.0)
[2022-06-10 08:21] LABS: Magnesium 1.8 mg/dL (1.9-2.7)
[2022-06-10] MEDS ORDERED: Magnesium Sulfate 2 gm BAG 2 GM/50 ML BAG IVPB ONE (08:21)
[2022-06-10 08:26] LABS: Hematocrit 42 % (42-52); Hemoglobin 13.6 g/dL (14.0-18.0); Mean Corpuscular HGB Conc 33 g/dL (31-36); Mean Corpuscular Hemoglobin 31 pg (27-31); Mean Corpuscular Volume 93 fL (80-94); Mean Platelet Volume 7.4 fL (7.4-10.4); Platelet Count 256 10^3/uL (150-450); Red Blood Count 4.47 10^6 /uL (4.18-5.48); Red Cell Distribution Width 22 % (10-15); White Blood Count 5.7 10^3/uL (3.5-10.8)
[2022-06-10] MEDS: Multivitamins/Minerals TAB PO SCH (09:59)
[2022-06-10 12:36] LABS: ABS Eosinophils 0.1 10^3/ul (0-0.6); ABS Lymphocytes 1.6 10^3/ul (1.0-4.8); ABS Monocytes 1.1 10^3/ul (0-0.8); ABS Neutrophils 2.8 10^3/ul (1.5-7.7); Eosinophil % 1.4 %; Lymphocyte % 28.6 %; Nucleated Red Blood Cells % 0.2
[2022-06-10 22:03] LABS: Urine Osmo 290 mOsm/kg (150-1150)
[2022-06-11 07:14] LABS: ABS Lymphocytes 1.4 10^3/ul (1.0-4.8); ABS Neutrophils 2.7 10^3/ul (1.5-7.7); Eosinophil % 0.9 %; Hematocrit 41 % (42-52); Hemoglobin 13.6 g/dL (14.0-18.0); Lymphocyte % 26.7 %; Mean Corpuscular HGB Conc 33 g/dL (31-36); Mean Corpuscular Hemoglobin 31 pg (27-31); Mean Corpuscular Volume 93 fL (80-94); Mean Platelet Volume 7.4 fL (7.4-10.4); Platelet Count 281 10^3/uL (150-450); Red Blood Count 4.37 10^6 /uL (4.18-5.48); Red Cell Distribution Width 22 % (10-15); White Blood Count 5.3 10^3/uL (3.5-10.8)
[2022-06-11 07:41] LABS: Calcium 8.8 mg/dL (8.6-10.3); Magnesium 1.6 mg/dL (1.9-2.7); Potassium 3.8 mmol/L (3.5-5.0); eGFR CKD-EPI 100.7 (>60)
[2022-06-11] MEDS ORDERED: Magnesium Sulfate IV 3 GM in NS 0.9% 100 ml BAG 100 ML IVPB ONE (07:44)
[2022-06-11] MEDS: Multivitamins/Minerals TAB PO SCH (09:33)
[2022-06-11] MEDS ORDERED: Furosemide 40 mg/4 ml IV VIAL IV ONE (11:28)
[2022-06-11 12:55] LABS: Osmolality Serum 267 mOsm/kg (275-295)
[2022-06-11 15:39] LABS: Calcium 9.2 mg/dL (8.6-10.3); Potassium 4.3 mmol/L (3.5-5.0); eGFR CKD-EPI 96.1 (>60)
[2022-06-12] MEDS: Multivitamins/Minerals TAB PO SCH (08:18)
[2022-06-12 09:30] LABS: Hematocrit 44 % (42-52); Hemoglobin 14.2 g/dL (14.0-18.0); Mean Corpuscular HGB Conc 32 g/dL (31-36); Mean Corpuscular Hemoglobin 30 pg (27-31); Mean Corpuscular Volume 92 fL (80-94); Mean Platelet Volume 7.3 fL (7.4-10.4); Platelet Count 336 10^3/uL (150-450); Red Blood Count 4.76 10^6 /uL (4.18-5.48); Red Cell Distribution Width 22 % (10-15); White Blood Count 5.3 10^3/uL (3.5-10.8)
[2022-06-12 09:50] LABS: Calcium 9.3 mg/dL (8.6-10.3); Magnesium 1.8 mg/dL (1.9-2.7); Potassium 3.6 mmol/L (3.5-5.0); eGFR CKD-EPI 98.5 (>60)
[2022-06-12 09:57] LABS: ABS Lymphocytes 1.4 10^3/ul (1.0-4.8); ABS Neutrophils 2.8 10^3/ul (1.5-7.7); Eosinophil % 0.9 %; Lymphocyte % 26.1 %; Nucleated Red Blood Cells % 0.1
[2022-06-12] MEDS ORDERED: Magnesium Sulfate 2 gm BAG 2 GM/50 ML BAG IVPB ONE (10:11)
[2022-06-12 11:25] VITALS: BP 125/77
[2022-06-12 12:11] LABS: Rapid COVID-19 Molecular Undetected (Undetected)
[2022-06-12] MEDS ORDERED: Influenza vaccine *QUAD* *2022-23* 0.5 ML SYRINGE IM ONE (13:00)
== END 2022-06-12 14:32 | DRG 897 ==
LOC: ED 18:02 → EDHOLD 18:02 → SUATTDRO 06-05 10:58 → INTOOBSV 06-05 10:58 → OBSVTOIN 06-05 10:58 → MED 06-05 20:30 → UNDODISOB 06-07 13:58
PROVIDERS: ADMIT Internal Medicine; ATTEND Internal Medicine

== ENCOUNTER 2022-06-07 13:59 | Inpatient (IN) | END 2022-06-07 15:05 | disposition short-term general hospital (02) | DRG 948 | LOC: MED 13:59 | PROVIDERS: ADMIT Hospitalist; ATTEND Hospitalist ==